=== PATIENT | male | born 1960 | race Caucasian/White ===

== ENCOUNTER 2018-05-25 15:14 | Observation (INO) | payer BC ==
[2018-05-25] MEDS ORDERED: D50W 25 GM/50 ML SYRINGE IV ONE (15:52)
[2018-05-25 16:11] LABS: Absolute Lymphocytes (CBC) 3.5 K/uL (0.7-4.9); Absolute Monocytes 0.7 K/uL (0.1-1.3); Basophils % 1.2 % (0-1.3); Eosinophils % 2.6 % (0-4.4); Hematocrit 51.8 % (39.6-49.0); Lymphocytes % 30.3 % (15.3-44.8); MCH 30.7 pg (27.0-35.0); MCV 89.3 fL (80-100); MPV 8.6 fL (7.6-11.3); Monocytes % 6.3 % (3.3-12.3)
--- NOTE | 2018-05-25 16:12 | RAD REPORT ---
EXAM DESCRIPTION: CT - Ct Stroke Brain Wo Cont - 05/25/2018 3:58 pm CLINICAL HISTORY: Slurred speech, left-sided weakness COMPARISON: None. TECHNIQUE: Computed axial tomography of the head was obtained. IV contrast was not requested. All CT scans are performed using dose optimization technique as appropriate and may include automated exposure control or mA/KV adjustment according to patient size. FINDINGS: An intracranial bleed is not seen . The ventricles are normal in caliber. No extra-axial fluid collection is noted. Fluid within the sinuses/ mastoids is not seen. IMPRESSION: No acute intracranial abnormality is seen. If patient's symptoms persist MRI of the bra in would be recommended. The exam was discussed with Dr. Boudreaux at 4:06 p.m. 05/25/2018
[2018-05-25 16:13] LABS: Protime INR 0.92
[2018-05-25 16:22] LABS: Potassium 3.8 mmol/L (3.5-5.1)
--- NOTE | 2018-05-25 16:25 | RAD REPORT ---
EXAM DESCRIPTION: Michael Single View05/25/2018 4:18 pm CLINICAL HISTORY: Chest pain COMPARISON: 2014 FINDINGS: The lungs appear clear of acute infiltrate. The heart is normal size IMPRESSION: No acute abnormalities displayed
[2018-05-25] MEDS ORDERED: ACETAMINOPHEN 500 MG TAB PO PRN (17:02)
[2018-05-25] MEDS ORDERED: ONDANSETRON 4 MG/2 ML VIAL IV PRN (17:02)
--- NOTE | 2018-05-25 17:12 | EDPHYS ---
Physician Documentation [facility] Name: Pedro Butts Age: 58 yrs Sex: Male : 1960 Arrival Date: 05/25/2018 Time: 15:16 Bed 6 Private MD: None, None ED Physician Evangelista Boudreaux HPI: 05/25 18:09 This 58 yrs old Male presents to ER via Ambulatory with complaints of Left kdr face, arm, leg paresthesia and chest pain. 18:10 The patient presents to the emergency department with weakness of the left upper kdr extremity, left lower extremity, left side of the face, a speech or higher order brain function problem, aphasia, paresthesias of the left lower extremity, that is mild, left upper extremity, that is mild, left side of the face, that is mild. Onset: The symptoms/episode began/occurred The patient and are vague about exact onset. The believes that the s/s stated yesterday with slurred speech. The patient states this s/s became acutely worse about 10:15 today, primarily in his face.. Context: occurred on a street or driveway, occurred while the patient was sitting, Driving a care. Associated signs and symptoms: Pertinent positives: Pertinent negatives: fever, nausea, neck stiffness, syncope, blurred vision, double vision, visual field changes, loss of vision, weakness. Severity of symptoms: At their worst the symptoms were mild moderate just prior to arrival, this morning, in the emergency department the symptoms have improved moderately. Patient's baseline: Neuro: alert and fully oriented, Motor: no deficits, Ambulation: walks without assistance, Speech: normal. Current symptoms: Currently, the patient is not experiencing any symptoms. The patient has not experienced similar symptoms in the past. The patient has not recently seen a physician. Historical: - Allergies: 15:25 Demerol; aj1 - Home Meds: 15:25 Simvastatin Oral [Active]; aj1 - PMHx: 15:25 High Cholesterol; Prostate Cancer; heat stroke; aj1 - PSHx: 15:25 Hernia repair; aj1 - Immunization history:: Adult Immunizations up to date. - Ebola Screening: : No symptoms or risks identified at this time. - Social history:: Smoking status: Patient uses tobacco products, smokes one-half pack cigarettes per day. ROS: 18:10 Constitutional: Negative for fever, chills, and weight loss, Eyes: Negative for injury, kdr pain, redness, and discharge, ENT: Negative for injury, pain, and discharge, Neck: Negative for injury, pain, and swelling, Cardiovascular: Negative for chest pain, palpitations, and edema, Respiratory: Negative for shortness of breath, cough, wheezing, and pleuritic chest pain, Abdomen/GI: Negative for abdominal pain, nausea, vomiting, diarrhea, and constipation, Back: Negative for injury and pain, : Negative for injury, bleeding, discharge, and swelling, MS/Extremity: Negative for injury and deformity, Neuro: Negative for headache, weakness, numbness, tingling, and seizure activity. Psych: Negative for depression, anxiety, suicide ideation, homicidal ideation, and hallucinations, Allergy/Immunology: Negative for hives, rash, and allergies, Endocrine: Negative for neck swelling, polydipsia, polyuria, polyphagia, and marked weight changes, Hematologic/Lymphatic: Negative for swollen nodes, abnormal bleeding, and unusual bruising. 18:10 Skin: Positive for Negative for diaphoresis, discoloration, hematoma, jaundice, lesions, pallor. Exam: 18:10 Constitutional: This is a well developed, well nourished patient who is awake, alert, kdr and in no acute distress. Head/Face: Normocephalic, atraumatic. Eyes: Pupils equal round and reactive to light, extra-ocular motions intact. Lids and lashes normal. Conjunctiva and sclera are non-icteric and not injected. Cornea within normal limits. Periorbital areas with no swelling, redness, or edema. Neck: Trachea midline, no thyromegaly or masses palpated, and no cervical lymphadenopathy. Supple, full range of motion without nuchal rigidity, or vertebral point tenderness. No Meningismus. Chest/axilla: Normal chest wall appearance and motion. Nontender with no deformity. No lesions are appreciated. Cardiovascular: Regular rate and rhythm with a normal S1 and S2. No gallops, murmurs, or rubs. Normal PMI, no JVD. No pulse deficits. Respiratory: Lungs have equal breath sounds bilaterally, clear to auscultation and percussion. No rales, rhonchi or wheezes noted. No increased work of breathing, no retractions or nasal flaring. Abdomen/GI: Soft, non-tender, with normal bowel sounds. No distension or tympany. No guarding or rebound. No evidence of tenderness throughout. Back: No spinal tenderness. No costovertebral tenderness. Full range of motion. Skin: Warm, dry with normal turgor. Normal color with no rashes, no lesions, and no evidence of cellulitis. MS/ Extremity: Pulses equal, no cyanosis. Neurovascular intact. Full, normal range of motion. Neuro: Awake and alert, GCS 15, oriented to person, place, time, and situation. Cranial nerves II-XII grossly intact. Motor strength 5/5 in all extremities. Sensory grossly intact. Cerebellar exam normal. Normal gait. Psych: Awake, alert, with orientation to person, place and time. Behavior, mood, and affect are within normal limits. Vital Signs: 15:25 BP 144 / 99; Pulse 75; Resp 18; Temp 98.1(O); Pulse Ox 97% on R/A; aj1 16:00 BP 127 / 65; Pulse 68; Resp 17; Pulse Ox 98% on R/A; sv 17:38 BP 129 / 79; Pulse 64; Resp 13; Pulse Ox 97% ; sv 19:28 BP 141 / 93; Pulse 58; Resp 16; Temp 98; Pulse Ox 96% on R/A; Pain 0/10; tl1 NIH Stroke Scale Scores: 15:32 NIHSS Score: 4 sv 16:48 NIHSS Score: 4 kdr MDM: 15:51 ED course: D/w Dr. Palmer - since patient is now about five hours out from onset kdr (possibly since yesterday afternoon per ) then he outside the window for tPA. Additionally, the stroke scale is only 4 at this time. Will get CT/CTA and d/w Dr. Palmer to determine if patient can safely be managed here or will need to be transferred . 16:08 ED course: Dr. Marin called with negative head. kdr 17:11 Patient medically screened. kdr 18:10 Data reviewed: vital signs, nurses notes, lab test result(s), EKG, radiologic studies. kdr Admission orders: after a detailed discussion of the patient's condition and case, the admit orders are written by me. 05/25 15:27 Order name: Glucose, Ancillary Testing; Complete Time: 16:56 EDMS 05/25 15:46 Order name: Basic Metabolic Panel; Complete Time: 16:56 kdr 05/25 15:46 Order name: CBC with Diff; Complete Time: 16:56 kdr 05/25 15:46 Order name: Protime (+inr); Complete Time: 16:56 kdr 05/25 15:46 Order name: Ptt, Activated; Complete Time: 16:56 kdr 05/25 15:46 Order name: Urine Microscopic Only kdr 05/25 16:12 Order name: Glucose, Ancillary Testing; Complete Time: 16:56 EDMS 05/25 17:06 Order name: CBC with Automated Diff EDMS 05/25 17:06 Order name: CBC with Automated Diff EDMS 05/25 17:06 Order name: CBC with Automated Diff EDMS 05/25 17:06 Order name: CBC with Automated Diff EDMS 05/25 17:06 Order name: Comprehensive Metabolic Panel EDMS 05/25 17:06 Order name: Comprehensive Metabolic Panel EDMS 05/25 17:06 Order name: Comprehensive Metabolic Panel EDMS 05/25 15:46 Order name: CT Stroke Brain w/o Contrast; Complete Time: 16:56 kdr 05/25 15:46 Order name: Stroke CXR 1 View; Complete Time: 16:56 kdr 05/25 15:46 Order name: EKG; Complete Time: 15:46 kdr 05/25 16:15 Order name: Head angio EDMS 05/25 17:06 Order name: Physical Therapy Consult EDMS 05/25 17:06 Order name: Speech Therapy Consult EDMS 05/25 17:06 Order name: Echo with Doppler EDMS 05/25 17:06 Order name: Comprehensive Metabolic Panel EDMS 05/25 17:06 Order name: Lipid Profile EDMS 05/25 17:06 Order name: Lipid Profile EDMS 05/25 17:07 Order name: Carotid Artery Bilateral EDMS 05/25 17:12 Order name: MRA Head Wo Cont EDMS 05/25 17:12 Order name: Brain With Cont EDMS 05/25 18:43 Order name: MRI EDMS 05/25 15:46 Order name: Accucheck; Complete Time: 16:20 kdr 05/25 15:46 Order name: Cardiac monitoring; Complete Time: 16:19 kdr 05/25 15:46 Order name: EKG - Nurse/Tech; Complete Time: 16:15 kdr 05/25 15:46 Order name: IV Saline Lock; Complete Time: 16:15 kdr 05/25 15:46 Order name: Labs collected and sent; Complete Time: 16:15 kdr 05/25 15:46 Order name: NPO; Complete Time: 16:19 kdr 05/25 15:46 Order name: O2 Per Protocol; Complete Time: 16:20 kdr 05/25 15:46 Order name: O2 Sat Monitoring; Complete Time: 16:20 kdr 05/25 17:06 Order name: NPO EDMS 05/25 17:06 Order name: NPO EDMS 05/25 17:06 Order name: NPO EDMS Administered Medications: 15:54 Drug: D50W 25 ml Route: IVP; Site: left antecubital; sv 16:15 Follow up: Response: No adverse reaction sv Point of Care Testing: Blood Glucose: 15:25 Blood Glucose: 48 mg/dL; iw 16:10 Blood Glucose: 120 mg/dL; sv 19:36 Blood Glucose: 72 mg/dL; tl1 Ranges: Critical Glucose Levels:Adult <50 mg/dl or >400 mg/dl <40 mg/dl or >180 mg/dl Disposition: 05/25/18 17:11 Hospitalization ordered by Chandra Rodriguez for Inpatient Admission. Preliminary diagnosis is Left facial paresthisia, left upper lower limb paresthesia, chest pain. - Bed requested for Telemetry/MedSurg (Inpatient). - Status is Inpatient Admission. tl1 - Condition is Fair. - Problem is new. - Symptoms have improved. UTI on Admission? No NIH Stroke Scale - NIH Stroke Score Date: 05/25/2018 Time: 15:32 Total Score = 4 1a. Level of Consciousness (LOC) - 0(Alert) 1b. Level of Consciousness (LOC) (Year \T\ Age) - 0(Both) 1c. LOC Commands (Open \T\ Closes Eyes/Supervisor Dry Cell Assembly) - 0(Both) 2. Best Gaze (Lateral Gaze Paresis) - 0(Normal) 3. Visual Field Loss - 0(No visual loss) 4. Facial Palsy - 1(Minor Paralysis) 5a. Left Arm: Motor (10-second hold) - 0(No drift) 5b. Right Arm: Motor (10-second hold) - 0(No drift) 6a. Left Leg: Motor (5-second hold - always test supine) - 0(No drift) 6b. Right Leg: Motor (5-second hold - always test supine) - 0(No drift) 7. Limb Ataxia (finger/nose \T\ heel/cole - test with eyes open) - 1(Present in one limb) 8. Sensory Loss (pinprick arms/legs/face) - 1(Mild to moderate loss) 9. Best Language: Aphasia (description/naming/reading) - 1(Mild to moderate aphasia) 10. Dysarthria (speech clarity - read or repeat words) - 0(Normal) 11. Extinction and Inattention (visual/tactile/auditory/spatial/personal) - 0(No abnormality) Initials: NIH Stroke Scale - NIH Stroke Score Date: 05/25/2018 Time: 16:48 Total Score = 4 1a. Level of Consciousness (LOC) - 0(Alert) 1b. Level of Consciousness (LOC) (Year \T\ Age) - 0(Both) 1c. LOC Commands (Open \T\ Closes Eyes/Supervisor Dry Cell Assembly) - 0(Both) 2. Best Gaze (Lateral Gaze Paresis) - 0(Normal) 3. Visual Field Loss - 0(No visual loss) 4. Facial Palsy - 1(Minor Paralysis) 5a. Left Arm: Motor (10-second hold) - 0(No drift) 5b. Right Arm: Motor (10-second hold) - 0(No drift) 6a. Left Leg: Motor (5-second hold - always test supine) - 0(No drift) 6b. Right Leg: Motor (5-second hold - always test supine) - 0(No drift) 7. Limb Ataxia (finger/nose \T\ heel/cole - test with eyes open) - 1(Present in one limb) 8. Sensory Loss (pinprick arms/legs/face) - 1(Mild to moderate loss) 9. Best Language: Aphasia (description/naming/reading) - 1(Mild to moderate aphasia) 10. Dysarthria (speech clarity - read or repeat words) - 0(Normal) 11. Extinction and Inattention (visual/tactile/auditory/spatial/personal) - 0(No abnormality) Initials: kdr Signatures: Dispatcher [employer] EDLia Huang RN RN aj1 Christine Hall RN RN sv Evangelista Boudreaux MD MD kdr Lasagna, Tonya, RN RN tl1 Julia Staples, RN RN df Corrections: (The following items were deleted from the chart) 15:49 15:46 Head Brain Wo Cont+CT.RAD.BRZ ordered. EDMS EDMS 17:50 17:11 Hospitalization Ordered by Chandra Rodriguez MD for Inpatient Admission. df Preliminary diagnosis is Left facial paresthisia, left upper lower limb paresthesia, chest pain. Bed requested for Telemetry/MedSurg (Inpatient). Status is Inpatient Admission. Condition is Fair. Problem is new. Symptoms have improved. UTI on Admission? No. kdr 20:03 17:50 05/25/2018 17:11 Hospitalization Ordered by Chandra Rodriguez MD for Inpatient tl1 Admission. Preliminary diagnosis is Left facial paresthisia, left upper lower limb paresthesia, chest pain. Bed requested for Telemetry/MedSurg (Inpatient). Status is Inpatient Admission. Condition is Fair. Problem is new. Symptoms have improved. UTI on Admission? No. df
--- NOTE | 2018-05-25 17:12 | ER ---
Nurse's Notes [facility] Name: Pedro Butts Age: 58 yrs Sex: Male : 1960 Arrival Date: 05/25/2018 Time: 15:16 Bed 6 Private MD: None, None Diagnosis: Left facial paresthisia, left upper lower limb paresthesia, chest pain Presentation: 05/25 15:17 Presenting complaint: Patient states: Slurred speech and left sided weakness since aj1 10:00 this morning. Patient states he was driving when suddenly he felt like the coffee he was drinking was dribbling out of the left side of his mouth. Patient's states that his speech sounds more slurred than usual to her. 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 15:24 Transition of care: patient was not received from another setting of care. Onset of aj1 symptoms was May 25, 2018 at 10:00. Risk Assessment: Do you want to hurt yourself or someone else? Patient reports no desire to harm self or others. Initial Sepsis Screen: Does the patient meet any 2 criteria? No. Patient's initial sepsis screen is negative. Does the patient have a suspected source of infection? No. Patient's initial sepsis screen is negative. Care prior to arrival: None. 15:24 Method Of Arrival: Ambulatory aj1 15:24 Acuity: DAMIEN 2 aj1 Triage Assessment: 15:25 General: Appears in no apparent distress. uncomfortable, Behavior is calm, cooperative, aj1 appropriate for age. Neuro: Level of Consciousness is awake, alert, obeys commands, Community Development Manager are weak on left Speech is normal, Notified Turner Wallace RN of patient symptoms. Patient taken to ER 6. Cardiovascular: Patient's skin is warm and dry. Historical: - Allergies: 15:25 Demerol; aj1 - Home Meds: 15:25 Simvastatin Oral [Active]; aj1 - PMHx: 15:25 High Cholesterol; Prostate Cancer; heat stroke; aj1 - PSHx: 15:25 Hernia repair; aj1 - Immunization history:: Adult Immunizations up to date. - Ebola Screening: : No symptoms or risks identified at this time. - Social history:: Smoking status: Patient uses tobacco products, smokes one-half pack cigarettes per day. Screenin:33 Abuse screen: Denies threats or abuse. Denies injuries from another. Nutritional sv screening: No deficits noted. Tuberculosis screening: No symptoms or risk factors identified. Fall Risk None identified. 20:00 Patient has been NPO before screening. The patient is alert, able to follow commands. tl1 The patient does not exhibit slurred or garbled speech The patient is not exhibiting difficulty speaking. The patient does not exhibit difficulty understanding words. The patient is able to swallow own secretions with no drooling or need for suction. Patient tolerated one teaspoon of water. No drooling, immediate coughing, gurgling, or clearing of the throat was noted. The patient tolerated 90mL of water. No drooling, immediate coughing, gurgling, or clearing of the throat was noted. The patient passed the bedside swallow screening. Oral medications may be given as ordered. Contact Physician for further diet orders. Assessment: 15:28 Reassessment: Dr. Boudreaux at beside to assess pt. Orders to hold "Code Stroke" at this iw time. 15:33 Reassessment: EKG at bedside. sv 15:33 General: Appears in no apparent distress. comfortable, well developed, Behavior is sv calm, cooperative, appropriate for age. Pain: Denies pain. Neuro: Level of Consciousness is awake, alert, obeys commands, Oriented to person, place, time, situation, Moves all extremities. Full function Speech is slurred, per spouse. Reports headache in left since that started yesterday and went away and then came back this morning and went away. numbness in left eye, left voodoo, left side of the nose, left zygomatic area, left cheek and left mandible since 1000 today reports right side of face has droop.. Respiratory: Respiratory effort is even, unlabored, Respiratory pattern is regular, symmetrical. Derm: Skin is pink, warm \\T\\ dry. Musculoskeletal: Range of motion: intact in all extremities. 15:39 Reassessment: Dr. Boudreaux speaking to Dr. Palmer via telephone. iw 16:19 Reassessment: Patient appears in no apparent distress at this time. No changes from sv previously documented assessment. Patient and/or family updated on plan of care and expected duration. Pain level reassessed. Patient is alert, oriented x 3, equal unlabored respirations, skin warm/dry/pink. 17:10 Reassessment: Patient appears in no apparent distress at this time. No changes from sv previously documented assessment. Patient and/or family updated on plan of care and expected duration. Pain level reassessed. Patient is alert, oriented x 3, equal unlabored respirations, skin warm/dry/pink. 18:14 Reassessment: Pt currently in MRI. sv 19:41 Pain: Denies pain. Pain does not radiate. Pain began. tl1 20:01 Reassessment: Patient and/or family updated on plan of care and expected duration. Pain tl1 level reassessed. Patient is alert, oriented x 3, equal unlabored respirations, skin warm/dry/pink. Vital Signs: 15:25 BP 144 / 99; Pulse 75; Resp 18; Temp 98.1(O); Pulse Ox 97% on R/A; aj1 16:00 BP 127 / 65; Pulse 68; Resp 17; Pulse Ox 98% on R/A; sv 17:38 BP 129 / 79; Pulse 64; Resp 13; Pulse Ox 97% ; sv 19:28 BP 141 / 93; Pulse 58; Resp 16; Temp 98; Pulse Ox 96% on R/A; Pain 0/10; tl1 NIH Stroke Scale Scores: 15:32 NIHSS Score: 4 sv 16:48 NIHSS Score: 4 kdr ED Course: 15:16 Patient arrived in ED. mr 15:17 None, None is Private Physician. mr 15:24 Irish Wallace, RN is Primary Nurse. iw 15:25 Triage completed. aj1 15:25 Arm band placed on Patient placed in an exam room. aj1 15:30 Patient maintains SpO2 saturation greater than 95% on room air. sv 15:33 Patient has correct armband on for positive identification. Placed in gown. Bed in low sv position. Side rails up X2. Adult w/ patient. desk monitor on. Pulse ox on. NIBP on. Door closed. Head of bed elevated. 15:34 Evangelista Boudreaux MD is Attending Physician. kdr 15:35 Initial lab(s) drawn, by nv, sent to lab. Inserted saline lock: 20 gauge in left sv antecubital area, using aseptic technique. Blood collected. Flushed left antecubital with 5 ml normal saline. 15:40 EKG done, by mammography technologist. reviewed by Evangelista Boudreaux MD. sm3 15:[address] mw3 15:[address] via stretcher. sv 15:58 CT completed. Patient tolerated procedure well. Patient moved back from CT. mw3 15:58 CT Stroke Brain w/o Contrast In Process Unspecified. EDMS 16:00 Patient moved back from CT. sv 16:06 Stroke CXR 1 View In Process Unspecified. EDMS 16:19 Radiology exam delayed due to lab results not completed at this time. (BUN/Creatinine). vr 16:[address] via stretcher. vr 16:44 Head angio In Process Unspecified. EDMS 17:05 Chandra Rodriguez MD is Hospitalizing Provider. kdr 17:55 Patient moved to MRI via wheelchair. em2 19:07 Report given to Rosa THOMAS and Emily THOMAS. sv 19:36 No provider procedures requiring assistance completed. Patient admitted, IV remains in tl1 place. 20:02 Diet: Patient given snack. given crackers with peanut butter and drink for glucose tl1 reading of 72. Administered Medications: 15:54 Drug: D50W 25 ml Route: IVP; Site: left antecubital; sv 16:15 Follow up: Response: No adverse reaction sv Point of Care Testing: Blood Glucose: 15:25 Blood Glucose: 48 mg/dL; iw 16:10 Blood Glucose: 120 mg/dL; sv 19:36 Blood Glucose: 72 mg/dL; tl1 Ranges: Outcome: 17:11 Decision to Hospitalize by Provider. kdr 19:37 Admitted to Tele accompanied by tech, via wheelchair, with chart, Report called to tl1 Porsha THOMAS 19:37 Condition: stable 20:02 Admitted to tl1 20:02 Instructed on the need for admit. 20:03 Patient left the ED. tl1 NIH Stroke Scale - NIH Stroke Score Date: 05/25/2018 Time: 15:32 Total Score = 4 1a. Level of Consciousness (LOC) - 0(Alert) 1b. Level of Consciousness (LOC) (Year \\T\\ Age) - 0(Both) 1c. LOC Commands (Open \\T\\ Closes Eyes/Automatic Winder Operator) - 0(Both) 2. Best Gaze (Lateral Gaze Paresis) - 0(Normal) 3. Visual Field Loss - 0(No visual loss) 4. Facial Palsy - 1(Minor Paralysis) 5a. Left Arm: Motor (10-second hold) - 0(No drift) 5b. Right Arm: Motor (10-second hold) - 0(No drift) 6a. Left Leg: Motor (5-second hold - always test supine) - 0(No drift) 6b. Right Leg: Motor (5-second hold - always test supine) - 0(No drift) 7. Limb Ataxia (finger/nose \\T\\ heel/cole - test with eyes open) - 1(Present in one limb) 8. Sensory Loss (pinprick arms/legs/face) - 1(Mild to moderate loss) 9. Best Language: Aphasia (description/naming/reading) - 1(Mild to moderate aphasia) 10. Dysarthria (speech clarity - read or repeat words) - 0(Normal) 11. Extinction and Inattention (visual/tactile/auditory/spatial/personal) - 0(No abnormality) Initials: sv NIH Stroke Scale - NIH Stroke Score Date: 05/25/2018 Time: 16:48 Total Score = 4 1a. Level of Consciousness (LOC) - 0(Alert) 1b. Level of Consciousness (LOC) (Year \\T\\ Age) - 0(Both) 1c. LOC Commands (Open \\T\\ Closes Eyes/Automatic Winder Operator) - 0(Both) 2. Best Gaze (Lateral Gaze Paresis) - 0(Normal) 3. Visual Field Loss - 0(No visual loss) 4. Facial Palsy - 1(Minor Paralysis) 5a. Left Arm: Motor (10-second hold) - 0(No drift) 5b. Right Arm: Motor (10-second hold) - 0(No drift) 6a. Left Leg: Motor (5-second hold - always test supine) - 0(No drift) 6b. Right Leg: Motor (5-second hold - always test supine) - 0(No drift) 7. Limb Ataxia (finger/nose \\T\\ heel/cole - test with eyes open) - 1(Present in one limb) 8. Sensory Loss (pinprick arms/legs/face) - 1(Mild to moderate loss) 9. Best Language: Aphasia (description/naming/reading) - 1(Mild to moderate aphasia) 10. Dysarthria (speech clarity - read or repeat words) - 0(Normal) 11. Extinction and Inattention (visual/tactile/auditory/spatial/personal) - 0(No abnormality) Initials: kdr Signatures: Dispatcher [employer] EDLia Huang RN RN aj1 Christine Hall, RN RN sv Evangelista Boudreaux MD MD kdr Rivera, Maria mr Irish Wallace, WILLIAM RN iw Chapo, James Ortiz 2 Emily Stone RN RN tl1 Vanessa Wilkes 3 Brenda Gonsales mw3 Corrections: (The following items were deleted from the chart) 15:25 15:17 Presenting complaint: Patient states: Slurred speech and left sided aj1 weakness since 10:00 this morning aj1 15:40 15:28 Reassessment: Dr. Boudreaux at [facility] to assess pt iw iw 16:29 15:33 Neuro: Level of Consciousness is awake, alert, obeys commands, Oriented sv to person, place, time, situation, Moves all extremities. Full function Speech is slurred, per spouse. Reports headache in left since that started yesterday and went away and then came back this morning and went away. numbness in left eye, left voodoo, left side of the nose, left zygomatic area, left cheek and left mandible since 1000 today sv 20:03 19:37 Admitted to Tele accompanied by tech, via wheelchair, with chart, tl1 tl1
--- NOTE | 2018-05-25 17:17 | RAD REPORT ---
EXAM DESCRIPTION: CTHead angio05/25/2018 4:44 pm CLINICAL HISTORY: Slurred speech/left-sided weakness COMPARISON: May 25, [address] TECHNIQUE: CT angiogram of the head was obtained. 50 cc Isovue 370 was intravenously. Coronal and sa gittal reconstruction was performed. All CT scans are performed using dose optimization technique as appropriate and may include automated exposure control or mA/KV adjustment according to patient size. FINDINGS: The internal carotid, anterior cerebral, middle cerebral and posterior cerebral arteries a re normal caliber. An aneurysm is not seen. origin of the posterior cerebral arteries is noted. The distal aspect of the basilar artery is small. A filling defect is not seen. IMPRESSION: The distal aspect of the basilar artery is small. This probably is either a normal varia nt or or chronic finding. If the patient has clinical symptoms to suggest acute basilar pathology the n an MRI and MRA of the brain would be recommended for further evaluation.
[2018-05-25 18:01] VITALS: O2SAT 96
--- NOTE | 2018-05-25 18:43 | RAD REPORT ---
EXAM DESCRIPTION: MRI - Brain W/Wo Cont - 05/25/2018 6:29 pm CLINICAL HISTORY: facial droop CVA COMPARISON: MRA Head Wo Cont dated 05/25/2018; Head angio dated 05/25/2018; Ct Stroke Brain Wo Cont da jose 05/25/2018 TECHNIQUE: Multi-sequence, multiplanar MR imaging of the brain was performed with contrast. FINDINGS: No intracranial hemorrhage, hydrocephalus, extra-axial fluid collection or acute infarctio n. No edema or shift of midline structures. No intracranial mass. DWI is negative for acute CVA. The midline structures are normally formed. Mild polypoid mucosal thickening affects the inferior max illary antra. The paranasal sinuses and mastoids are otherwise clear. Post-contrast images show no abnormal enhancement to suggest tumor or infection. IMPRESSION: No acute or concerning intracranial abnormalities. No pathologic post-contrast enhancement suspected.
--- NOTE | 2018-05-25 18:45 | RAD REPORT ---
EXAM DESCRIPTION: MRI - MRA Head Wo Cont - 05/25/2018 6:29 pm CLINICAL HISTORY: facial droop CVA COMPARISON: Head angio dated 05/25/2018; Ct Stroke Brain Wo Cont dated 05/25/2018 FINDINGS: 3D [id number] MR angiography of the [place] was performed. No flow-limiting stenosis, vascular malformation or aneurysm is detected. origin of bilateral p osterior communicating arteries is noted, normal variant. This normal variant anatomy likely results in the diminutive size of the vertebrobasilar system. Forward flow in both vertebral arteries are not ed. IMPRESSION: No significant flow abnormality of the [place] is identified.
--- NOTE | 2018-05-25 19:04 | HP ---
Date of Admission: 05/25/2018 Primary Care Physician: None. Consultants: Herbie Palmer M.D., neurology. Chief Complaint: Numbness and tingling in the left side. History Of Present Illness: The patient is a 58-year-old male with past medical history of hyperlipi demia, prostate cancer, who was not seen a primary care physician for over a year, comes in with numb ness and tingling to left side of his face, which initially started day prior to admission with some transient blurry vision and visual disturbances in the left eye. The patient noticed that this is mo rning at 10:15 a.m. when he was trying to work, had some tingling and numbness in his left side as we ll as weakness on the left upper extremity. The patient's symptoms are constant, moderate, progressi vely worsening. No alleviating or aggravating factor. The patient therefore came into the ER for fu rther evaluation. Of note, the patient is a long-term smoker and continues to smoke half a pack a da y. Upon arrival, his vital signs were stable. His blood sugar level of 48. Head CT scan initially was negative. CT angio had showed distal aspect of the basilar artery is small, probably either a no rmal variant or chronic finding and recommended MRI. The patient was then referred for admission. W hen seen in the ER, he was awake, alert, oriented x3, in some mild distress. Past Medical History: Hyperlipidemia, prostate cancer. Past Surgical History: TURP, bunionectomy of the left great toe, right arm surgery for a staph infec tion, and bone spur. Allergies: TO DEMEROL, WHICH CAUSES FLUSHING. Medications: None. Social History: The patient is , has a daughter. Smokes half pack per day and has been smoki ng for over 20 years. Denies any alcohol use or illicit drug use. The patient is independent in his activities of daily living. Currently employed and works in [employer]. Family History: Mother had diabetes. Father had stroke, heart attack. Review of Systems: An 11-point system reviewed, negative except as per HPI. Physical Examination: Vital Signs: Blood pressure 144/99, respirations 18, pulse 75, temperature 98.1, O2 97% on room air. General: Awake, alert, oriented x3, not in any acute distress. HEENT: Normocephalic, atraumatic. PERRLA. EOMI. Moist mucous membranes. Oropharynx is clear. Co njunctivae anicteric. Neck: Supple. No JVD. Trachea midline. CV: S1, S2. No murmurs. Regular rate and rhythm. Peripheral pulses are present. Respiratory: Clear to auscultation bilaterally. No wheezing. No stridor. No use of accessory musc les Gastrointestinal: Abdomen is soft, nontender, nondistended. Positive bowel sounds. No guarding or rigidity. Extremities: No clubbing, cyanosis, or edema. No calf tenderness. Neuro: Cranial nerves 2 through 12 intact grossly. The patient does have 4+ out of 5 strength in th e left upper and lower extremity. Right side is 5/5. The patient does have slight slurring of the s peech with very minimal facial droop. Sensation is decreased to light touch on the left side. Skin: No rashes. Normal skin turgor. Psych: Mood is okay. Affect is full. Insight and judgment are good. Laboratory Data: Sodium 142, potassium 3.8, chloride 108, CO2 29, BUN 17, creatinine 1.10, glucose 8 5 initially, Accu-Chek was 48. Repeat is 120. Calcium 8.5. INR 0.92. WBC 11.7, H and H 17.8, 51.8 , and platelets 252. UA is pending. Chest x-ray shows no acute abnormalities. CT angio of the head shows distal aspect of the basal artery is small, probably either a normal variant or chronic findin g. CT scan of the head does not show any acute intracranial abnormality. Assessment: A 58-year-old male with; 1.Transient ischemic attack, possible cerebrovascular accident. We will start on aspirin, statin, a nd could complete stroke workup including MRI of the brain, carotid artery ultrasound and echocardiog eliza. Dr. Palmer with neurology has been consulted. He is aware of the patient. We will obtain sp eech therapy and occupational therapy evaluation. 2.Hyperlipidemia. We will check lipid panel. Continue statin. 3.Noncompliant. 4.Hypoglycemia. We will place on IV fluids and monitor blood glucose level. 5.Gastrointestinal and deep venous thrombosis prophylaxis with PPI and Lovenox. Plan: Admit the patient to Med-Surg. SA/MODL Voice ID: [id number]
--- NOTE | 2018-05-25 19:21 | RAD REPORT ---
EXAM DESCRIPTION: LUCI - CP - 05/25/2018 6:48 pm CLINICAL HISTORY: CVA COMPARISON: None TECHNIQUE: Real-time sonographic evaluation of both carotid systems was performed. Doppler interroga tion was performed with waveform tracing bilaterally. FINDINGS: Normal high resistance waveforms are noted in both external carotid arteries. The common c arotid arteries and internal carotid arteries show normal low resistance waveforms. Mild soft plaque is seen in both carotid bulbs. Peak systolic and end diastolic velocity values and t he ICA/CCA ratios are in the non-hemodynamically significant range. Antegrade flow seen in both vertebral arteries. IMPRESSION: Mild soft plaque is seen in both carotid bulbs. No evidence of a hemodynamically significant stenosis.
[2018-05-25] MEDS: ENOXAPARIN 40 MG/0.4 ML SQ SCH (20:41)
[2018-05-25] MEDS: NA CHLORIDE 0.9% 1,000 ML IV SCH (20:42)
[2018-05-25] MEDS: ASPIRIN EC 81 MG TAB PO SCH (20:59)
[2018-05-25] MEDS ORDERED: ATORVASTATIN 40 MG TAB PO SCH (21:00)
[2018-05-25 21:11] VITALS: BMI 29.9
[2018-05-26] MEDS: NA CHLORIDE 0.9% 1,000 ML IV SCH (03:52)
[2018-05-26 05:43] LABS: Absolute Lymphocytes (CBC) 3.6 K/uL (0.7-4.9); Absolute Monocytes 0.8 K/uL (0.1-1.3); Absolute Neutrophil 4.6 K/uL (1.8-8.0); Basophils % 0.7 % (0-1.3); Eosinophils % 4.3 % (0-4.4); Lymphocytes % 38.2 % (15.3-44.8); MCH 31.1 pg (27.0-35.0); MCV 89.8 fL (80-100); MPV 8.8 fL (7.6-11.3); RBC Red Blood Cell Count 5.34 M/uL (4.33-5.43)
[2018-05-26 05:57] LABS: ALT/SGPT 28 U/L (12-78); AST/SGOT 20 U/L (15-37); Albumin 3.5 g/dL (3.4-5.0); Alkaline Phosphatase 92 U/L (45-117); BUN Blood Urea Nitrogen 20 mg/dL (7-18); Bicarbonate 28 mmol/L (21-32); Bilirubin Total 0.3 mg/dL (0.2-1.0); Glucose Level 95 mg/dL (74-106); HDL Cholesterol 25 mg/dL (40-60); LDL Cholesterol, Calculated ND (<130); Potassium 4.1 mmol/L (3.5-5.1); Protein, Total 6.5 g/dL (6.4-8.2); Sodium Level 142 mmol/L (136-145)
[2018-05-26 06:17] LABS: LDL, Direct 144 mg/dL (100-129)
[2018-05-26] MEDS ORDERED: ASPIRIN EC 81 MG TAB PO SCH (09:00)
[2018-05-26] MEDS: ASPIRIN EC 81 MG TAB PO SCH (10:18)
[2018-05-26] MEDS: ENOXAPARIN 40 MG/0.4 ML SQ SCH (10:18)
[2018-05-26 12:16] VITALS: BP 150/86; TEMP 98.3
--- NOTE | 2018-05-26 13:56 | PN ---
Date of Progress Note: 05/26/2018 Subjective: The patient is seen and examined. Chart reviewed and case discussed with RN. The patie nt states he feels better. His weakness is about the same. No difficulty swallowing liquids. Facia l asymmetry is improved. Review of Systems: Negative except as above. Medications: List reviewed. Physical Examination: Vital Signs: Temperature 97.7, heart rate 53, blood pressure 140/84, respirations 18, O2 96% on room air. General: Awake, alert, oriented x3, not in acute distress. Elderly male, obese, BMI 30. CV: S1, S2. No murmurs. Regular rate and rhythm. Peripheral pulses present. Respiratory: Clear to auscultation bilaterally. No wheezing. Gastrointestinal: Abdomen is soft, nontender, nondistended. Positive bowel sounds. Extremities: No clubbing, cyanosis, or edema. Neuro: The patient has subtle weakness 4+/5 on the left upper and lower extremity. No facial asymme try. Speech is improved. Skin: No rashes. Normal skin turgor. Laboratory Data: Sodium 142, potassium 4.1, chloride 108, CO2 28, BUN 20, creatinine 1, glucose 95, calcium 8. Triglycerides 470, cholesterol 213, LDL 144, HDL 25. WBC 9.5, H and H 16.6 and 48, plate lets 227. MRI of the brain and MRA shows no significant flow abnormalities, no acute or concerning i ntracranial abnormalities. No pathologic postcontrast enhancement suspected. Assessment And Plan: A 58-year-old male with: 1.Transient ischemic attack, rule out cerebrovascular accident. Continue aspirin, statin. MRI is n egative. Symptoms have improved. We will obtain PT and speech eval. Dr. Palmer has been consulte d. Carotid artery ultrasound shows mild soft plaque seen in both carotid bulbs. No evidence of hemo dynamically significant stenosis. 2.Dyslipidemia, uncontrolled. Continue with high-dose statin. 3.Noncompliance. The patient counseled. 4.Hypoglycemia, improved. 5.Gastrointestinal and deep venous thrombosis prophylaxis with PPI and Lovenox. Plan: Continue workup. Echocardiogram is pending. We will follow up with Dr. Palmer's recommenda tion. SA/MODL Voice ID: [id number] Report ID: [id number]
--- NOTE | 2018-05-26 16:26 | DS ---
Date of Discharge: 05/26/2018 Consultants: Dr. Palmer with Neurology. Admitting Diagnoses: 1. Transient ischemic attack, rule out cerebrovascular accident. 2. Hyperlipidemia. 3. Noncompliance. 4. Hypoglycemia. Discharge Diagnoses: 1. Transient ischemic attack, cerebrovascular accident ruled out. 2. Dyslipidemia. 3. Hypoglycemia, improved. 4. Nicotine dependence, cigarette smoking, uncomplicated. Hospital Course: The patient is a 58-year-old male, who had not seen primary care physician for over a year, out of his statin medication, comes in with numbness and tingling on the left side. He was told to have a possible stroke. He was admitted for stroke workup. He was started on aspirin and high-dose statin. His workup including the MRI of the brain, and MRI and MRA was negative for any acute changes, did not show any acute CVA. His head CT angio did show distal aspect of the basilar artery to be small, either normal variant or chronic finding. Initial head CT was negative. Chest x-ray did not show any acute changes. Carotid artery ultrasound did not show any hemodynamically significant stenosis. The patient was seen by Dr. Palmer with Neurology. His symptoms improved and had no difficulty ambulating. The patient was then able to tolerate his diet without any difficulties. The patient was then cleared from Neurology standpoint. He was counseled extensively on being compliant with his medications and to quit smoking. The patient was then discharged home in a stable condition. Activity: As tolerated. Medications: As per medication reconciliation list. Followup: Follow up with primary care physician in 2-3 days. List of primary care providers was given to the patient. Follow up with neurologist, Dr. Palmer in 2 weeks. Return to ER for worsening condition. Diet: Heart healthy. For physical exam findings please see progress note from day of discharge. /KARTHIKEYAN Voice ID: [id number] Report ID: [id number] PATRICK
--- NOTE | 2018-05-26 18:32 | CON ---
Reason For Consultation: Consultation called because of possible transient ischemic attack. History Of Present Illness: Mr. Butts is a 58-year-old right-handed patient with hyperte nsion and dyslipidemia, prostate cancer, who comes in after sudden onset left face arm and leg numbne ss. Symptoms occurred yesterday around 10 and the patient was actually seen in the emergency room ab out 5 hours later. Symptoms were fluctuating at the time, but were somewhat improving. NIH Stroke S priscilla in the emergency room was 4. His head CT scan was unremarkable for acute ischemic or hemorrhagi c change. A CT angiogram of his head showed the distal aspect of the basal artery to be small, which is likely a normal variant or chronic finding. Subsequent brain MRI shows no evidence of an acute i schemic or hemorrhagic stroke including in the thalamic region. His magnetic resonance angiogram agata wed no evidence of flow abnormalities in the [place]. There is origin of the bilatera l posterior communicating artery, which is likely a normal variant. Forward flow is noted in both ve rtebral arteries. His blood work revealed essentially normal complete blood count with differential, normal coagulation panel, and his laboratory studies showed on admission low glucose of around 48. His chloride was slightly elevated at 108, triglycerides were elevated at 470, total cholesterol elev ated 213, LDL cholesterol elevated at 144, HDL cholesterol was very low at 25 and cholesterol to HDL ratio was elevated at 8.52. Liver function studies were normal. Hemoglobin A1c was normal at 5.6. Calcium was normal. Urinalysis unremarkable. Mr. Butts denied taking aspirin on a regular basis and was not very compliant with medications. He admitted to drinking around 4 cans of Coke and 1 large cup of coffee daily with little water intake, perhaps 1-2 bottles. Past Medical History: As indicated above in addition to prostate cancer. Surgical History: He has had bunionectomy left toe, right arm surgery for staph infection and bone s purs and a TURP procedure. Allergies: DEMEROL CAUSES FLUSHING. Medications At Home: The patient denies being on any specific medications at home Social History: He is . He smokes about half a pack a day for about 25-30 years. Has recent use of alcohol or illegal drug use and he works as a [employer] contractor. Family History: Positive for hypertension and diabetes in mother, stroke and heart attack in father. Review of Systems: He denies any recent fevers, chills, nausea, vomiting, myalgias, arthralgias, headaches, weight henao e, rash, psychiatric complaints, any gastrointestinal or genitourinary complaints. Physical Examination: Vital Signs: Blood pressure 150/86, pulse 71, respiratory rate 16, temperature 98.3, oxygen saturati on 95%. Weight 191 pounds, height 5 feet 7 inches, BMI 30. General: Mr. Butts is resting comfortably, sitting at the side of his bed. HEENT: He is normocephalic, atraumatic. Sclerae anicteric. Oropharynx is pink and moist. Neck: Supple. Chest: Clear. Heart: Regular. Extremities: show no edema, cyanosis, or clubbing Neurologic: He is alert and oriented to person, p lace, time, and situation. Cranial nerves show mild decrease to light touch, temperature, pinprick o n the left V1, V2, V3 distribution. Otherwise, his cranial nerves are intact to examination. Motor examination in the lower extremities is 5/5 proximally and distally. Normal tone and bulk. Sensory examination, he has mild decreased light touch, temperature in the left arm and leg compared to the r ight side. Coordination, he has a mild intention tremor noted in both extremities. Mild head tituba tion noted as well. Reflexes are 1-2+ upper and lower extremities and are symmetric. Gait, he has g ood stance, stride, coordination, and balance. Assessment: Mr. Butts is a 58-year-old patient with likely a transient ischemic attack potentially involving his thalamus on the right, however, he still has a mild persistent deficit. It is with mo re than 24 hours beyond his initial symptom onset. He did not receive tPA and is now just taking an aspirin. He is now on high dose statin 40 mg at bedtime given his dyslipidemia and also has deep grace ous thrombosis prophylaxis with Lovenox. Plan: 1.The patient was instructed on the importance of making changes to reduce risk of stroke including his diet change, increasing exercise, hydration, cutting back on the use of caffeinated beverages. 2.The patient does have a tremor that is consistent with benign essential tremor that will be observ ed and treated at this time. He will be followed in the clinic for that in a month. 3.He should continue with high-dose statin, Lipitor 40 mg at bedtime. 4.Continue aspirin, currently ordered 162 mg daily. 5.It should be noted that his NIH Stroke Scale is still 4 for his sensory deficits of the face, arm, and leg on the left side along with some neglect on the left. 6.He will be followed again in clinic in 1 month. May consider additional imaging. The patient did say he fell during [place] and potentially might have injured the lower back and neck and i t has not been fully evaluated and that will be evaluated in clinic. 7.The patient may be discharged home at this time. UVALDO Voice ID: [id number] Report ID: [id number]
--- NOTE | 2018-05-27 10:33 | EKG ---
Test Date: 2018-05-25 Test Time: 15:34:35 Tear Down Man: JOSE MEASUREMENT RESULTS: Intervals: Rate: 67 VA: 148 QRSD: 92 QT: 388 QTc: 409 Higginson: P: 43 VA: 148 QRS: 47 T: 37 INTERPRETIVE STATEMENTS: Normal sinus rhythm Low voltage QRS Borderline ECG Compared to ECG 10/25/2014 15:56:34 Low QRS voltage now present Electronically Signed On 05-27-18 10:27:49 CDT by Lb Medellin
--- NOTE | 2018-05-29 08:26 | ECHO ---
HEIGHT: 5 ft 7 in WEIGHT: 191 lb 4.8 oz DATE OF STUDY: 05/26/[address]: Chandra Rodriguez MD 2-DIMENSIONAL: YES M.MODE: YES DOPPLER: YES COLOR FLOW: YES TDS: NO PORTABLE: NO DEFINITY: NO BUBBLE STUDY: NO DIAGNOSIS: STROKE CARDIAC HISTORY: CATHERIZATION: NO SURGERY: NO PROSTHETIC VALVE: NO PACEMAKER: NO MEASUREMENTS (cm) DIASTOLIC (NORMALS) SYSTOLIC (NORMALS) IVSd 1.2 (0.6-1.2) LA Diam 3.9 (1.9-4.0) LVEF 73% LVIDd 4.3 (3.5-5.7) LVIDs 2.5 (2.0-3.5) %FS 42% LVPWd 1.2 (0.6-1.2) Ao Diam 2.8 (2.0-3.7) 2 DIMENSIONAL ASSESSMENT: RIGHT ATRIUM: NORMAL LEFT ATRIUM: NORMAL RIGHT VENTRICLE: NORMAL LEFT VENTRICLE: NORMAL TRICUSPID VALVE: NORMAL MITRAL VALVE: NORMAL PULMONIC VALVE: NORMAL AORTIC VALVE: NORMAL PERICARDIAL EFFUSION: NONE AORTIC ROOT: NORMAL LEFT VENTRICULAR WALL MOTION: NORMAL. DOPPLER/COLOR FLOW: NORMAL. COMMENTS: NORMAL 2D ECHO WITH DOPPLER. NO THROMBUS. NO VEGETATION. TECHNOLOGIST: TATUM SMITH
== END 2018-05-26 16:43 | disposition home or self-care (01) ==
LOC: ER 15:14 → ERHOLD 17:12 → INTOOBSV 17:12 → 4TH 19:12
PROVIDERS: ADMIT Family Medicine; ATTEND Family Medicine
DX: G45.9 Transient cerebral ischemic attack, unspecified (principal); R29.704 NIHSS score 4; I10 Essential (primary) hypertension; E78.5 Hyperlipidemia, unspecified; Z85.46 Personal history of malignant neoplasm of prostate; Z91.14 Patient's other noncompliance with medication regimen; Z88.5 Allergy status to narcotic agent; F17.210 Nicotine dependence, cigarettes, uncomplicated; G25.0 Essential tremor; E16.2 Hypoglycemia, unspecified; E66.9 Obesity, unspecified; Z68.30 Body mass index [BMI] 30.0-30.9, adult
CPT/HCPCS: 36415; 70450; 70496; 70544; 70553; 71045; 80048; 80053; 80061; 82962; 83036; 85025; 85610; 85730; 93005; 93306; 93880; 94760; 96374; 97163; 99285; A9577; J1650; J7030; Q9967

== ENCOUNTER 2021-03-30 10:12 | Emergency (ER) | payer SELFPAY ==
--- NOTE | 2021-03-30 12:07 | RAD REPORT ---
EXAM DESCRIPTION: RAD - Ankle Left 3 View -03/30/2021 11:33 am CLINICAL HISTORY: Left ankle pain status post injury FINDINGS: No fracture or dislocation is seen. Soft tissue swelling
--- NOTE | 2021-03-30 12:08 | RAD REPORT ---
EXAM DESCRIPTION: Catalina Kapoor Left03/30/2021 11:33 am CLINICAL HISTORY: Left leg pain status post injury FINDINGS: No fracture is seen
--- NOTE | 2021-03-30 12:09 | RAD REPORT ---
EXAM DESCRIPTION: RAD - Forearm Right - 03/30/2021 11:33 am CLINICAL HISTORY: Right arm pain status post fall FINDINGS: No fracture is seen.
--- NOTE | 2021-03-30 12:20 | ER ---
Nurse's Notes [facility] Name: Pedro Butts Age: 61 yrs Sex: Male : 1960 Arrival Date: 03/30/2021 Time: 10:15 Bed 10 Private MD: Diagnosis: Sprain of ankle;Fall on same level from slipping, tripping and stumbling;Abrasion of right forearm;Contusion of right forearm Presentation: 03/30 10:26 Chief complaint: Patient states: Slipped and fell last night. Over stretched L leg, ca1 now, both knees hurting, pain on L leg, swelling on L ankle, pain on R forearm. Coronavirus screen: Client denies travel out of the [place] in the last 14 days. At this time, the client does not indicate any symptoms associated with coronavirus-19. Ebola Screen: Patient negative for fever greater than or equal to 101.5 degrees Fahrenheit, and additional compatible Ebola Virus Disease symptoms Patient denies exposure to infectious person. Patient denies travel to an Ebola-affected area in the 21 days before illness onset. No symptoms or risks identified at this time. Initial Sepsis Screen: Does the patient meet any 2 criteria? No. Patient's initial sepsis screen is negative. Does the patient have a suspected source of infection? No. Patient's initial sepsis screen is negative. Risk Assessment: Do you want to hurt yourself or someone else? Patient reports no desire to harm self or others. Onset of symptoms was March 30, 2021. 10:26 Method Of Arrival: Ambulatory ca1 10:26 Acuity: DAMIEN 4 ca1 Historical: - Allergies: 10:29 Demerol; ca1 - PMHx: 10:29 heat stroke; High Cholesterol; Prostate Cancer; Diabetes - IDDM; Diabetes - NIDDM; ca1 - PSHx: 10:29 Hernia repair; ca1 - Immunization history:: Client reports receiving the 1st dose of the Covid vaccine, Pneumococcal vaccine is not up to date, Flu vaccine is not up to date. - Social history:: Smoking status: Patient reports the use of cigarette tobacco products, smokes one pack cigarettes per day. Screenin:40 Abuse screen: Denies threats or abuse. Denies injuries from another. Nutritional ld1 screening: No deficits noted. Tuberculosis screening: No symptoms or risk factors identified. Fall Risk Fall in past 12 months (25 points). Assessment: 10:40 General: Appears in no apparent distress. comfortable, Behavior is calm, cooperative, ld1 appropriate for age. Pain: Complains of pain in palmar aspect of right forearm, right knee, left knee, left cole, anterior aspect of left ankle and dorsum of left foot Pain does not radiate. Pain currently is 6 out of 10 on a pain scale. Quality of pain is described as pressure, stabbing, Pain began 1 day ago. Is continuous. Neuro: Level of Consciousness is awake, alert, obeys commands, Oriented to person, place, time, situation, Appropriate for age. Cardiovascular: Capillary refill < 3 seconds Patient's skin is warm and dry. Respiratory: Airway is patent Respiratory effort is even, unlabored, Respiratory pattern is regular, symmetrical. GI: Abdomen is flat, non-distended. : No signs and/or symptoms were reported regarding the genitourinary system. EENT: No signs and/or symptoms were reported regarding the EENT system. Derm: No signs and/or symptoms reported regarding the dermatologic system. Musculoskeletal: No signs and/or symptoms reported regarding the musculoskeletal system. 11:54 Reassessment: Patient appears in no apparent distress at this time. Patient and/or ld1 family updated on plan of care and expected duration. Pain level reassessed. Patient is alert, oriented x 3, equal unlabored respirations, skin warm/dry/pink. Sitting in chair at bedside with . Denies concerns at this time. Waiting on results. Patient denies pain at this time. Vital Signs: 10:26 BP 155 / 82; Pulse 78; Resp 16; Temp 97.1(TE); Pulse Ox 98% on R/A; Weight 86.64 kg ca1 (R); Height 5 ft. 7 in. (170.18 cm) (R); Pain 6/10; 10:40 BP 139 / 74; Pulse 78; Resp 18; Temp 97.5(TE); Pulse Ox 98% on R/A; Weight 86.64 kg; ld1 Height 5 ft. 10 in. (177.80 cm); Pain 6/10; 11:55 BP 142 / 78; Pulse 80; Resp 18; Pulse Ox 100% on R/A; ld1 10:40 Body Mass Index 27.41 (86.64 kg, 177.80 cm) ld1 ED Course: 10:15 Patient arrived in ED. ds1 10:28 Triage completed. ca1 10:29 Arm band placed on right wrist. ca1 10:30 [facility]ter [facility]C [facility] kb 10:30 Janeen Crespo MD is Attending Physician. kb 10:40 Laurie Nix, RN is Primary Nurse. ld1 10:40 Patient has correct armband on for positive identification. Bed in low position. Call ld1 light in reach. Side rails up X 1. Pulse ox on. NIBP on. Door closed. Noise minimized. Warm blanket given. 10:40 No provider procedures requiring assistance completed. ld1 11:33 Ankle Left 3 View XRAY In Process Unspecified. EDMS 11:33 Tib Fib Left XRAY In Process Unspecified. EDMS 11:33 Forearm Right XRAY In Process Unspecified. EDMS 12:28 Patient did not have IV access during this emergency room visit. ld1 Administered Medications: 12:20 Drug: Tetanus-Diphtheria Toxoid Adult 0.5 ml {Facsimile Machine Operator: [employer]. Exp: ld1 04/19/2022. Lot #: [id number]. } Route: IM; Site: left deltoid; Outcome: 12:19 Discharge ordered by . kb 12:28 Patient left the ED. sv 12:28 Discharged to home ambulatory. ld1 12:28 Condition: good 12:28 Discharge instructions given to patient, Instructed on discharge instructions, follow ld1 up and referral plans. Demonstrated understanding of instructions, follow-up care. Signatures: Dispatcher [employer] EDUT Nakia Painter FNP-C FNP-Ckb Verde, Stephanie RN RN Juana Hughes ds1 Cordelia Tapia RN RN ca1 Laurie Nix, WILLIAM RN ld1 Corrections: (The following items were deleted from the chart) 18:40 18:40 Patient did not have IV access during this emergency room visit. ld1 ld1
--- NOTE | 2021-03-30 12:20 | EDPHYS ---
Physician Documentation [facility] Name: Pedro Butts Age: 61 yrs Sex: Male : 1960 Arrival Date: 03/30/2021 Time: 10:15 Bed 10 Private MD: ED Physician Janeen Crespo HPI: 03/30 16:37 This 61 yrs old Male presents to ER via Ambulatory with complaints of Fall kb Injury. 16:37 Details of fall: The patient fell from an upright position, while walking. Onset: The kb symptoms/episode began/occurred last night. Associated injuries: The patient sustained anterior aspect of left ankle, painful injury, swelling, medial aspect of right knee and medial aspect of left knee, painful injury, palmar aspect of right forearm, abrasion, contusion, painful injury. Severity of symptoms: At their worst the symptoms were moderate, in the emergency department the symptoms are unchanged. The patient has not experienced similar symptoms in the past. The patient has not recently seen a physician. Pt reports he slipped and fell last night. c/o pain and swelling to left ankle, pain to medial aspect of bilateral knees, pain, swelling and abrasion to right forearm. Walking without difficulty. . Historical: - Allergies: 10:29 Demerol; ca1 - PMHx: 10:29 heat stroke; High Cholesterol; Prostate Cancer; Diabetes - IDDM; Diabetes - NIDDM; ca1 - PSHx: 10:29 Hernia repair; ca1 - Immunization history:: Client reports receiving the 1st dose of the Covid vaccine, Pneumococcal vaccine is not up to date, Flu vaccine is not up to date. - Social history:: Smoking status: Patient reports the use of cigarette tobacco products, smokes one pack cigarettes per day. ROS: 16:37 Eyes: Negative for injury, pain, redness, and discharge. kb 16:37 MS/extremity: Positive for abrasion, contusion, pain, swelling, tenderness, of the anterior aspect of left ankle and palmar aspect of right forearm and medial aspect of right knee and medial aspect of left knee. 16:37 Skin: Positive for abrasion(s), of the palmar aspect of right forearm. 16:37 All other systems are negative. Exam: 16:37 Constitutional: This is a well developed, well nourished patient who is awake, alert, kb and in no acute distress. Head/Face: Normocephalic, atraumatic. ENT: Moist Mucous membranes Cardiovascular: Regular rate and rhythm with a normal S1 and S2. No gallops, murmurs, or rubs. No pulse deficits. Respiratory: Respirations even and unlabored. No increased work of breathing, no retractions or nasal flaring. Abdomen/GI: Soft, non-tender. No distention Neuro: Awake and alert, GCS 15, oriented to person, place, time, and situation. Moves all extremities. Normal gait. Psych: Awake, alert, with orientation to person, place and time. Behavior, mood, and affect are within normal limits. 16:37 Musculoskeletal/extremity: Extremities: grossly normal except: noted in the medial aspect of right knee and medial aspect of left knee: pain, noted in the anterior aspect of left ankle: pain, swelling, tenderness, ROM: intact in all extremities, Circulation is intact in all extremities. Sensation intact. Weight bearing: able to fully bear weight. 16:37 Skin: injury, abrasion(s), very small abrasion noted, of the palmar aspect of right forearm, contusion(s), that are superficial, of the palmar aspect of right forearm. Vital Signs: 10:26 BP 155 / 82; Pulse 78; Resp 16; Temp 97.1(TE); Pulse Ox 98% on R/A; Weight 86.64 kg ca1 (R); Height 5 ft. 7 in. (170.18 cm) (R); Pain 6/10; 10:40 BP 139 / 74; Pulse 78; Resp 18; Temp 97.5(TE); Pulse Ox 98% on R/A; Weight 86.64 kg; ld1 Height 5 ft. 10 in. (177.80 cm); Pain 6/10; 11:55 BP 142 / 78; Pulse 80; Resp 18; Pulse Ox 100% on R/A; ld1 10:40 Body Mass Index 27.41 (86.64 kg, 177.80 cm) ld1 MDM: 10:30 Patient medically screened. kb 12:18 Data reviewed: vital signs, nurses notes. Data interpreted: Pulse oximetry: on room air kb is 100 %. Interpretation: normal. 16:37 Counseling: I had a detailed discussion with the patient and/or guardian regarding: the kb historical points, exam findings, and any diagnostic results supporting the discharge/admit diagnosis, radiology results, the need for outpatient follow up, a family practitioner, to return to the emergency department if symptoms worsen or persist or if there are any questions or concerns that arise at home. 03/30 10:38 Order name: Ankle Left 3 View XRAY; Complete Time: 12:08 kb 03/30 10:38 Order name: Tib Fib Left XRAY; Complete Time: 12:10 kb 03/30 10:38 Order name: Forearm Right XRAY; Complete Time: 12:10 kb 03/30 12:19 Order name: Jonas Wrap; Complete Time: 12:20 kb Administered Medications: 12:20 Drug: Tetanus-Diphtheria Toxoid Adult 0.5 ml {Order Expediter: [employer]. Exp: ld1 04/19/2022. Lot #: [id number]. } Route: IM; Site: left deltoid; Disposition: 18:40 Co-signature as Attending Physician, Janeen Crespo MD. ma2 Disposition: 03/30/21 12:19 Discharged to Home. Impression: Sprain of ankle, Fall on same level from slipping, tripping and stumbling, Abrasion of right forearm, Contusion of right forearm. - Condition is Stable. - Discharge Instructions: Musculoskeletal Pain, Ankle Sprain, [id number]. - Medication Reconciliation Form, Thank You Letter, Antibiotic Education, Prescription Opioid Use form. - Follow up: Emergency Department; When: As needed; Reason: Worsening of condition. Follow up: Private Physician; When: 2 - 3 days; Reason: Recheck today's complaints, Continuance of care, Re-evaluation by your physician. Signatures: Dispatcher [employer] Nakia Wilkins, AGRICULTURAL REAL ESTATE AGENT-C AGRICULTURAL REAL ESTATE AGENT-Christine Champion RN RN sv Alzahri, Mohammad, MD MD ma2 Cordelia Tapia RN RN ca1 Dibbern, Lauren, RN RN ld1 Corrections: (The following items were deleted from the chart) 12:28 12:19 03/30/2021 12:19 Discharged to Home. Impression: Sprain of ankle; Fall on same sv level from slipping, tripping and stumbling; Abrasion of right forearm; Contusion of right forearm. Condition is Stable. Forms are Medication Reconciliation Form, Thank You Letter, Antibiotic Education, Prescription Opioid Use. Follow up: Emergency Department; When: As needed; Reason: Worsening of condition. Follow up: Private Physician; When: 2 - 3 days; Reason: Recheck today's complaints, Continuance of care, Re-evaluation by your physician. kb
[2021-03-30 12:36] VITALS: TEMP 97.5
[2021-03-30] MEDS ORDERED: TETANUS & DIPHTHERIA TOX,ADULT 0.5 ML VIAL ONE (12:36)
[2021-03-30 12:38] VITALS: BP 142/78; O2SAT 100
== END 2021-03-30 12:28 | disposition home or self-care (01) ==
LOC: ER 10:12
DX: S93.402A Sprain of unspecified ligament of left ankle, initial encounter (principal); S50.811A Abrasion of right forearm, initial encounter; S50.11XA Contusion of right forearm, initial encounter; Z23 Encounter for immunization; W01.0XXA Fall on same level from slipping, tripping and stumbling without subsequent striking against object, initial encounter; M25.561 Pain in right knee; M25.562 Pain in left knee; E78.00 Pure hypercholesterolemia, unspecified; C61 Malignant neoplasm of prostate; E11.9 Type 2 diabetes mellitus without complications; F17.210 Nicotine dependence, cigarettes, uncomplicated
CPT/HCPCS: 90471; 90714; 99283

== ENCOUNTER 2022-07-28 20:24 | Emergency (ER) | payer SELFPAY ==
[2022-07-28 21:02] LABS: Absolute Lymphocytes (CBC) 1.2 K/uL (0.7-4.9); Hematocrit 46.1 % (39.6-49.0); Lymphocytes % 8.5 % (15.3-44.8); MCV 86.7 fL (80-100); MPV 7.8 fL (7.6-11.3); RBC Red Blood Cell Count 5.31 M/uL (4.33-5.43)
[2022-07-28 21:06] LABS: Protime INR 1.12
[2022-07-28] MEDS ORDERED: IBUPROFEN 400 MG TAB ONE (21:20)
[2022-07-28 21:23] LABS: Albumin 3.9 g/dL (3.4-5.0); Bilirubin Total 0.8 mg/dL (0.2-1.0); Protein, Total 7.6 g/dL (6.4-8.2); Troponin High Sensitivity 5.1 pg/mL (<58.9)
--- NOTE | 2022-07-28 21:36 | RAD REPORT ---
EXAM DESCRIPTION: RAD - Chest Single View - 07/28/2022 9:25 pm CLINICAL HISTORY: SOB COMPARISON: No comparisonsChest Pa And Lat (2 Views) dated 09/17/2019; Abdomen 1 View (KUB) dated 09/17/2019; Abdomen 1 View (KUB) dated 11/02/2018; Chest Single View dated 05/25/2018 FINDINGS: Lines: None. Lungs: Increased prominence of the pulmonary interstitium Pleural: No significant pleural effusions or pneumothorax. Cardiac: The heart size is within normal limits. Mediastinum: Within normal limits. Bones: No acute fractures. ACDF in the cervical spine. Other: None IMPRESSION: Increased prominence of the pulmonary interstitium could represent mild interstitial ok ma.
[2022-07-28 22:12] LABS: Urine Blood Trace-intact (Negative); Urine Glucose Trace (Negative); Urine Protein 1+ (Negative); Urine Specific Gravity 1.015 (1.005-1.030)
[2022-07-28] MEDS ORDERED: ACETAMINOPHEN 500 MG TAB ONE (22:14)
[2022-07-28] MEDS ORDERED: LEVALBUTEROL 1.25 MG/3 ML NEB ONE (23:12)
[2022-07-28] MEDS ORDERED: CEFTRIAXONE 1000 MG/VIAL ONE (23:41)
[2022-07-28] MEDS ORDERED: NA CHLORIDE 0.9% 50 ML ONE (23:41)
--- NOTE | 2022-07-29 01:50 | EDPHYS ---
Physician Documentation [facility] Name: Pedro Butts Age: 62 yrs Sex: Male : 1960 Arrival Date: 07/28/2022 Time: 20:26 Bed 13 Private MD: ED Physician Evangelista Boudreaux HPI: 07/29 04:07 This 62 yrs old Male presents to ER via EMS with complaints of Shortness of breath. kdr 04:07 Patient feels like she has been short of breath for at least 2 weeks. Over that period kdr of time the her shortness of breath is progressively worsened.. Onset: The symptoms/episode began/occurred gradually, 2 week(s) ago. Severity of symptoms: At their worst the symptoms were mild moderate in the emergency department the symptoms are unchanged. The patient has not experienced similar symptoms in the past. The patient has not recently seen a physician. Patient reports that the patient has been having persistent but worsening shortness of breath over the last couple weeks. In addition to that the last 12 hours, he has spiked a fever at home. He generally feels poorly. About 3 days ago he had been tested for COVID and at that time it was negative. The patient is a smoker and has COPD. Historical: - Allergies: 07/28 20:28 Demerol; lg3 - PMHx: 20:28 Diabetes - IDDM; heat stroke; High Cholesterol; Prostate Cancer; heart attack; stroke; lg3 - PSHx: 20:28 neck; feet; stomach; elbow; lg3 - Immunization history:: Adult Immunizations up to date, moderna X3. - Social history:: Smoking status: Patient reports the use of cigarette tobacco products, smokes one-half pack cigarettes per day, Patient uses alcohol, occasionally. ROS: 07/29 04:07 Constitutional: Negative for weight loss -he has had fever and chills Eyes: Negative kdr for injury, pain, redness, and discharge, Neck: Negative for injury, pain, and swelling, Cardiovascular: Negative for chest pain, palpitations, and edema, Abdomen/GI: Negative for abdominal pain, nausea, vomiting, diarrhea, and constipation, Back: Negative for injury and pain, : Negative for injury, bleeding, discharge, and swelling, MS/Extremity: Negative for injury and deformity, Skin: Negative for injury, rash, and discoloration, Neuro: Negative for headache, weakness, numbness, tingling, and seizure activity. Psych: Negative for depression, anxiety, suicide ideation, homicidal ideation, and hallucinations, Allergy/Immunology: Negative for hives, rash, and allergies, Endocrine: Negative for neck swelling, polydipsia, polyuria, polyphagia, and marked weight changes, Hematologic/Lymphatic: Negative for swollen nodes, abnormal bleeding, and unusual bruising. Respiratory: Positive for cough, with no reported sputum, dyspnea on exertion, shortness of breath, on exertion. wheezing, Negative for hemoptysis, pleurisy, wheezing. Exam: 04:07 Constitutional: This is a well developed, well nourished patient who is awake, alert, kdr and in no acute distress. Head/Face: Normocephalic, atraumatic. Eyes: Pupils equal round and reactive to light, extra-ocular motions intact. Lids and lashes normal. Conjunctiva and sclera are non-icteric and not injected. Cornea within normal limits. Periorbital areas with no swelling, redness, or edema. Neck: Trachea midline, no thyromegaly or masses palpated, and no cervical lymphadenopathy. Supple, full range of motion without nuchal rigidity, or vertebral point tenderness. No Meningismus. Chest/axilla: Normal chest wall appearance and motion. Nontender with no deformity. No lesions are appreciated. Cardiovascular: Regular rate and rhythm with a normal S1 and S2. No gallops, murmurs, or rubs. Normal PMI, no JVD. No pulse deficits. Respiratory: Lungs have equal breath sounds bilaterally, clear to auscultation and percussion. No rales, rhonchi or wheezes noted. No increased work of breathing, no retractions or nasal flaring. Abdomen/GI: Soft, non-tender, with normal bowel sounds. No distension or tympany. No guarding or rebound. No evidence of tenderness throughout. Back: No spinal tenderness. No costovertebral tenderness. Full range of motion. Skin: Warm, dry with normal turgor. Normal color with no rashes, no lesions, and no evidence of cellulitis. MS/ Extremity: Pulses equal, no cyanosis. Neurovascular intact. Full, normal range of motion. Neuro: Awake and alert, GCS 15, oriented to person, place, time, and situation. Cranial nerves II-XII grossly intact. Motor strength 5/5 in all extremities. Sensory grossly intact. Cerebellar exam normal. Normal gait. Psych: Awake, alert, with orientation to person, place and time. Behavior, mood, and affect are within normal limits. Vital Signs: 07/28 20:26 BP 147 / 82; Pulse 106; Resp 23 S; Temp 99.9(O); Pulse Ox 97% on 3 lpm NC; Weight 84.82 lg3 kg (R); Height 5 ft. 7 in. (170.18 cm) (R); Pain 0/10; 22:01 BP 123 / 67; Pulse 97; Resp 24; Temp 100.0(O); Pulse Ox 97% on 3 lpm NC; lg3 23:37 BP 133 / 78; Pulse 99; Resp 25; Temp 98.9(O); Pulse Ox 98% on 3 lpm NC; lg3 07/29 01:11 BP 102 / 50; Pulse 84; Resp 21; Pulse Ox 97% on 3 lpm NC; lg3 01:38 BP 111 / 62; Pulse 78; Resp 24; Pulse Ox 95% on R/A; lg3 01:59 BP 99 / 72; Pulse 75; Resp 18; Pulse Ox 94% on R/A; tw5 07/28 20:26 Body Mass Index 29.29 (84.82 kg, 170.18 cm) lg3 MDM: 01:49 Patient medically screened. kdr 04:07 Data reviewed: vital signs, nurses notes, lab test result(s), radiologic studies. kdr Counseling: I had a detailed discussion with the patient and/or guardian regarding: the historical points, exam findings, and any diagnostic results supporting the discharge/admit diagnosis, lab results, radiology results, the need for outpatient follow up. ED course: I discussed with the patient the possibility of admitting him. We ambulated the patient in the department and recorded vital signs. His vital signs actually improved with increased activity. Patient was looking much better and by mutual agreement we will attempt to convalesce at home. Patient was happy with the care provided the plan for discharge and follow-up. 07/28 20:29 Order name: CBC with Diff; Complete Time: 21:48 kdr 07/28 20:29 Order name: Troponin HS; Complete Time: 22:01 kdr 07/28 20:30 Order name: BNP; Complete Time: 22:01 la1 07/28 20:41 Order name: Blood Culture Adult (2) kdr 07/28 20:41 Order name: Lactate; Complete Time: 22:01 kdr 07/28 20:41 Order name: Protime (+inr); Complete Time: 22:01 kdr 07/28 20:41 Order name: Ptt, Activated; Complete Time: 21:48 kdr 07/28 20:46 Order name: Flu; Complete Time: 22:53 la1 07/28 20:46 Order name: COVID-19 SARS RT PCR (Document "Date of Onset" if Symptomatic); Complete la1 Time: 22:13 07/28 20:59 Order name: Comprehensive Metabolic Panel; Complete Time: 21:48 EDMS 07/28 21:14 Order name: Glucose, Ancillary Testing; Complete Time: 22:01 EDMS 07/28 22:12 Order name: Urine Dipstick-Ancillary; Complete Time: 22:13 EDMS 07/28 20:29 Order name: XRAY Chest (1 view); Complete Time: 21:48 kdr 07/28 20:29 Order name: EKG; Complete Time: 20:30 kdr 07/28 20:29 Order name: Cardiac monitoring; Complete Time: 20:32 kdr 07/28 20:29 Order name: EKG - Nurse/Tech; Complete Time: 21:09 kdr 07/28 20:29 Order name: IV Saline Lock; Complete Time: 20:53 kdr 07/28 20:29 Order name: Labs collected and sent; Complete Time: 20:53 kdr 07/28 20:29 Order name: O2 Per Protocol; Complete Time: 20:32 kdr 07/28 20:29 Order name: O2 Sat Monitoring; Complete Time: 20:32 kdr 07/28 20:41 Order name: Accucheck; Complete Time: 21:09 kdr 07/28 20:41 Order name: IV Saline Lock - Large Bore; Complete Time: 20:54 kdr 07/28 20:41 Order name: Urine Dipstick-Ancillary (obtain specimen); Complete Time: 22:07 kdr 07/28 23:24 Order name: CT Chest, Abdomen, Pelvis - W/Contrast kdr Administered Medications: 07/28 21:11 Drug: Motrin (ibuprofen) 800 mg Route: PO; lg3 22:03 Follow up: Response: No adverse reaction; No change in condition; Temperature is lg3 unchanged 22:08 Drug: Tylenol 1000 mg Route: PO; lg3 23:37 Follow up: Response: No adverse reaction; Temperature is decreased lg3 23:08 Drug: Xopenex (levalbuterol) (3) 1.25 mg Route: Inhalation; lg3 23:25 Follow up: Response: No adverse reaction lg3 23:37 Drug: Rocephin - (cefTRIAXone) 1 grams Route: IVPB; Infused Over: 30 mins; Site: right lg3 antecubital; 23:57 Follow up: Response: No adverse reaction; IV Status: Completed infusion; IV Intake: [id number] Disposition Summary: 07/29/22 01:49 Discharge Ordered Location: Home kdr Problem: new kdr Symptoms: have improved kdr Condition: Stable kdr Diagnosis - Acute bronchitis, unspecified kdr - Other viral pneumonia kdr - COPD/ Chronic obstructive pulmonary disease with acute lower respiratory infection kdr - Tobacco use kdr Followup: kdr - With: Private Physician - When: 2 - 3 days - Reason: If symptoms return, Further diagnostic work-up, Recheck today's complaints, Continuance of care, Re-evaluation by your physician Discharge Instructions: - Discharge Summary Sheet kdr - Acute Bronchitis, Adult kdr - Chronic Obstructive Pulmonary Disease kdr - Community-Acquired Pneumonia, Adult, Xduc-ac-Titt kdr Forms: - Medication Reconciliation Form kdr - Thank You Letter kdr - Antibiotic Education kdr Prescriptions: - albuterol sulfate 90 mcg/actuation Inhalation HFA aerosol inhaler - inhale 2 puff by INHALATION route every 4 hours As needed; 2 canister; Refills: kdr 0, Product Selection Permitted - Tessalon Perles 100 mg Oral Capsule - take 1 capsule by ORAL route every 8 hours As needed; 15 capsule; Refills: 0, kdr Product Selection Permitted - Zithromax Z-Deniz 250 mg Oral Tablet - take 1 tablet by ORAL route as directed for 5 days Day 1 - take two (2) tablets kdr one time. Day 2, 3, 4 , 5 take one (1) tablet once daily.; 6 tablet; Refills: 0, Product Selection Permitted Signatures: [facility] Evangelista Small MD MD kdr Trav Holloway, SHOVEL LOGGER-C SHOVEL LOGGER-Cla1 Neisha Holland RN RN lg3 Corrections: (The following items were deleted from the chart) 20:58 20:42 COMPREHENSIVE METABOLIC PANEL+C.LAB.BRZ ordered. EDMS EDMS 20:59 20:30 BASIC METABOLIC PANEL+C.LAB.BRZ ordered. EDMS EDMS
--- NOTE | 2022-07-29 01:50 | ER ---
Nurse's Notes [facility] Name: Pedro Butts Age: 62 yrs Sex: Male : 1960 Arrival Date: 07/28/2022 Time: 20:26 Bed 13 Private MD: Diagnosis: Acute bronchitis, unspecified;Other viral pneumonia;COPD/ Chronic obstructive pulmonary disease with acute lower respiratory infection;Tobacco use Presentation: 07/28 20:26 Chief complaint: Patient states: SOB for 2 weeks and worsening. Coronavirus screen: lg3 Client denies travel out of the [place] in the last 14 days. At this time, the client does not indicate any symptoms associated with coronavirus-19. Ebola Screen: No symptoms or risks identified at this time. Initial Sepsis Screen: Does the patient meet any 2 criteria? No. Patient's initial sepsis screen is negative. Does the patient have a suspected source of infection? No. Patient's initial sepsis screen is negative. Risk Assessment: Do you want to hurt yourself or someone else? Patient reports no desire to harm self or others. Onset of symptoms is unknown. 20:26 Method Of Arrival: EMS: [facility] lg3 20:26 Acuity: DAMIEN 3 lg3 Triage Assessment: 20:28 General: Appears distressed, uncomfortable, Behavior is calm, cooperative, anxious. lg3 Pain: Denies pain. EENT: No deficits noted. No signs and/or symptoms were reported regarding the EENT system. Neuro: No deficits noted. Level of Consciousness is awake, alert, obeys commands, Oriented to person, place, time, situation, Speech is normal. Cardiovascular: No deficits noted. Denies chest pain, Capillary refill < 3 seconds Clubbing of nail beds is absent JVD is absent Patient's skin is warm and dry. Respiratory: Reports shortness of breath at rest on exertion cough that is labored breathing Airway is patent Trachea midline Respiratory effort is even, Respiratory pattern is tachypnea Breath sounds are clear bilaterally. GI: No deficits noted. No signs and/or symptoms were reported involving the gastrointestinal system. Abdomen is flat, non-distended, Bowel sounds present X 4 quads. Abd is soft and non tender X 4 quads. : No deficits noted. No signs and/or symptoms were reported regarding the genitourinary system. Derm: No deficits noted. No signs and/or symptoms reported regarding the dermatologic system. Skin is intact, is healthy with good turgor, Skin is dry, Skin is normal, Skin temperature is warm. Musculoskeletal: No deficits noted. No signs and/or symptoms reported regarding the musculoskeletal system. Circulation, motion, and sensation intact. Range of motion: intact in all extremities. Historical: - Allergies: 20:28 Demerol; lg3 - PMHx: 20:28 Diabetes - IDDM; heat stroke; High Cholesterol; Prostate Cancer; heart attack; stroke; lg3 - PSHx: 20:28 neck; feet; stomach; elbow; lg3 - Immunization history:: Adult Immunizations up to date, moderna X3. - Social history:: Smoking status: Patient reports the use of cigarette tobacco products, smokes one-half pack cigarettes per day, Patient uses alcohol, occasionally. Screenin:31 Abuse screen: Denies threats or abuse. Denies injuries from another. Nutritional lg3 screening: No deficits noted. Tuberculosis screening: No symptoms or risk factors identified. Fall Risk None identified. Assessment: 20:31 General: see triage assessment . lg3 22:01 Reassessment: Patient appears in no apparent distress at this time. No changes from lg3 previously documented assessment. Patient and/or family updated on plan of care and expected duration. Pain level reassessed. Patient is alert, oriented x 3, equal unlabored respirations, skin warm/dry/pink. 23:38 Reassessment: Patient appears in no apparent distress at this time. No changes from lg3 previously documented assessment. Patient and/or family updated on plan of care and expected duration. Pain level reassessed. Patient is alert, oriented x 3, equal unlabored respirations, skin warm/dry/pink. Patient states symptoms have improved. 07/29 01:11 Reassessment: Patient appears in no apparent distress at this time. No changes from lg3 previously documented assessment. Patient and/or family updated on plan of care and expected duration. Pain level reassessed. Patient is alert, oriented x 3, equal unlabored respirations, skin warm/dry/pink. 01:37 General: pt ambulated around unit. tolerated well. denies SOB on ambulation at this lg3 time . Vital Signs: 07/28 20:26 BP 147 / 82; Pulse 106; Resp 23 S; Temp 99.9(O); Pulse Ox 97% on 3 lpm NC; Weight 84.82 lg3 kg (R); Height 5 ft. 7 in. (170.18 cm) (R); Pain 0/10; 22:01 BP 123 / 67; Pulse 97; Resp 24; Temp 100.0(O); Pulse Ox 97% on 3 lpm NC; lg3 23:37 BP 133 / 78; Pulse 99; Resp 25; Temp 98.9(O); Pulse Ox 98% on 3 lpm NC; lg3 07/29 01:11 BP 102 / 50; Pulse 84; Resp 21; Pulse Ox 97% on 3 lpm NC; lg3 01:38 BP 111 / 62; Pulse 78; Resp 24; Pulse Ox 95% on R/A; lg3 01:59 BP 99 / 72; Pulse 75; Resp 18; Pulse Ox 94% on R/A; tw5 07/28 20:26 Body Mass Index 29.29 (84.82 kg, 170.18 cm) lg3 ED Course: 07/28 20:26 Patient arrived in ED. lg3 20:26 Neisha Holland, WILLIAM is Primary Nurse. lg3 20:28 Evangelista Boudreaux MD is Attending Physician. kdr 20:28 Triage completed. lg3 20:28 Arm band placed on right wrist. lg3 20:31 Patient has correct armband on for positive identification. Placed in gown. Bed in low lg3 position. Call light in reach. Side rails up X 1. Client placed on continuous cardiac and pulse oximetry monitoring. NIBP monitoring applied. monitoring and evaluation advisor on. Door closed. Noise minimized. Family accompanied patient. 20:54 Blood Culture Adult (2) Sent. lg3 20:54 Lactate Sent. lg3 20:54 Protime (+inr) Sent. lg3 20:54 Ptt, Activated Sent. lg3 20:54 CBC with Diff Sent. lg3 20:54 Troponin HS Sent. lg3 20:54 Inserted saline lock: 20 gauge in right antecubital area, using aseptic technique. lg3 Blood collected. 21:09 COVID-19 SARS RT PCR (Document "Date of Onset" if Symptomatic) Sent. lg3 21:09 Flu Sent. lg3 21:27 XRAY Chest (1 view) In Process Unspecified. EDMS 07/29 00:32 CT Chest, Abdomen, Pelvis - W/Contrast In Process Unspecified. EDMS 01:59 No provider procedures requiring assistance completed. IV discontinued, intact, tw5 bleeding controlled, No redness/swelling at site. Pressure dressing applied. Administered Medications: 07/28 21:11 Drug: Motrin (ibuprofen) 800 mg Route: PO; lg3 22:03 Follow up: Response: No adverse reaction; No change in condition; Temperature is lg3 unchanged 22:08 Drug: Tylenol 1000 mg Route: PO; lg3 23:37 Follow up: Response: No adverse reaction; Temperature is decreased lg3 23:08 Drug: Xopenex (levalbuterol) (3) 1.25 mg Route: Inhalation; lg3 23:25 Follow up: Response: No adverse reaction lg3 23:37 Drug: Rocephin - (cefTRIAXone) 1 grams Route: IVPB; Infused Over: 30 mins; Site: right lg3 antecubital; 23:57 Follow up: Response: No adverse reaction; IV Status: Completed infusion; IV Intake: 51okia9 Medication: 07/29 02:02 VIS not applicable for this client. lg3 Intake: 07/28 23:57 IV: 50ml; Total: 50ml. lg3 Outcome: 07/29 01:49 Discharge ordered by . kdr 01:59 Condition: stable tw5 02:01 Discharged to home ambulatory, with significant other. lg3 02:01 Discharge instructions given to patient, Instructed on discharge instructions, follow up and referral plans. medication usage, Demonstrated understanding of instructions, follow-up care, medications, Prescriptions given X 3. 02:03 Patient left the ED. lg3 Signatures: Dispatcher [employer] EDMS Evangelista Boudreaux MD MD kdr Neisha Holland, WILLIAM RN lg3 Ritu Nunes tw5 Corrections: (The following items were deleted from the chart) 07/28 20:31 20:26 BP 147 / 82; Pulse 106bpm; Resp 16bpm; Spontaneous; Pulse Ox 97% 3 lpm Nasal lg3 Cannula; Temp 99.9F Oral; 84.82 kg Reported; Height 5 ft. 7 in. Reported; BMI: 29.2; Pain 0/10; lg3 20:58 20:54 COMPREHENSIVE METABOLIC PANEL+C.LAB.BRZ drawn and sent. lg3 EDMS 20:59 20:53 BASIC METABOLIC PANEL+C.LAB.YOLANDA drawn and sent. 3 EDMS
--- NOTE | 2022-07-29 08:51 | RAD REPORT ---
EXAM DESCRIPTION: CT - Chest Abdomen Pelvis W Cont - 07/29/2022 8:15 am CLINICAL HISTORY: 62 years, Male, fever, URI COMPARISON: 12/20/2014 TECHNIQUE: Contrast-enhanced images of the chest, abdomen and pelvis were performed utilizing 5 mm s lice thickness at 5 mm interval reconstruction from the lung apices to the ischial tuberosities after the administration of IV contrast. In addition multiplanar reformats in the coronal and sagittal plane were obtained and reviewed. This exam was performed according to our departmental dose-optimization protocol, which includes auto mated exposure control, adjustment of the mA and/or kV according to patient size and/or use of iterat sammy reconstruction technique. FINDINGS: CT chest: The lungs parenchyma demonstrate diffuse minimal increase intralobular septal th ickening, interdigital lung disease, viral pneumonia could be of consideration. No masses and/or nodu les are identified. The trachea mainstem bronchus demonstrate to be normal. There is no significant pleural and/or perica rdial effusions. The thoracic aorta demonstrate to be within normal limits. The heart is not enlarged. There are no si gnificant coronary artery calcifications. The central pulmonary arteries demonstrate to be normal. There is a permanent the right carinal lymph node measuring 1.2 cm on image 23. No additional signifi cant mediastinal and/or hilar lymphadenopathy. The axillary regions demonstrate to be clear. The bone windows demonstrate no significant skeletal lesions. CT abdomen pelvis: The liver demonstrate decreased attenuation corresponding to fatty infiltration. A lice liver, gallbladder, pancreas, spleen and adrenal glands demonstrate to be unremarkable, no focal lesions are noted. The kidneys demonstrate normal uptake of contrast media. No evidence for nephrolithiasis and/or hydro nephrosis. There is a exophytic lower pole simple left renal cyst measuring 1.9 x 1.6 cm on image 72. No follow-up is recommended. Grossly the unopacified stomach, small bowel and large bowel demonstrate to be within normal limits. There is no evidence for bowel dilatation/or free air. The appendix is normal. The left site colo n demonstrate to be decompressed with very minimal diverticulosis. There is anterior abdominal wall mesh hernia repair and bilateral inguinal hernia repair with no comp licating features. The urinary bladder demonstrate to be unremarkable. The prostate gland was not visualized suggestin g the possibility of prostatectomy. The aorta demonstrate minimal atheromatous plaque formation. There is no retroperitoneal lymphadenopathy. There is no ascites. The rest of the soft tissue and bon y structures are within normal limits. IMPRESSION: Diffuse minimal increase intralobular septal thickening, interdigital lung disease, primo l pneumonia could be of consideration. Fatty infiltration of the liver. Left renal cyst. Status post anterior abdominal wall mesh hernia repair and bilateral inguinal hernia repair with no c omplicating features. Probable prostatectomy Electronically signed by: Sathya Snider MD 07/29/2022 12:57 AM CDT Due to temporary technical issues with the PACS/Fluency reporting system, reports are being signed by the in house radiologists without review as a courtesy to insure prompt reporting. The interpreting radiologist is fully responsible for the content of the report.
--- NOTE | 2022-07-29 13:36 | EKG ---
Test Date: 2022-07-28 Test Time: 21:07:50 Consulting Project Director: MEASUREMENT RESULTS: Intervals: Rate: 93 DC: 140 QRSD: 86 QT: 336 QTc: 417 Tavares: P: 66 DC: 140 QRS: 107 T: 56 INTERPRETIVE STATEMENTS: Normal sinus rhythm Rightward axis Borderline ECG Compared to ECG 05/25/2018 15:34:35 Right-axis deviation now present Electronically Signed On 07-29-22 13:34:30 CDT by Alvin Jacobson
[2022-07-30 02:26] VITALS: TEMP 98.9
[2022-07-30 03:03] VITALS: BP 99/72; O2SAT 94
== END 2022-07-29 02:03 | disposition home or self-care (01) ==
LOC: ER 20:24
DX: J44.0 Chronic obstructive pulmonary disease with (acute) lower respiratory infection (principal); J12.89 Other viral pneumonia; Z72.0 Tobacco use
CPT/HCPCS: 36415; 71045; 71260; 74177; 80053; 81003; 82947; 83605; 83880; 84484; 85025; 85610; 85730; 87040; 87804; 93005; 96365; 99285; J7614; Q9967; U0003

== ENCOUNTER 2023-04-07 10:25 | Emergency (ER) | payer OTHER, SELFPAY ==
--- OUTSIDE RECORDS SUMMARY | 2023-04-07 10:28 | XMS REPORT | Continuity of Care Document ---
:1960 Author Organization [facility] t Address [address] [place] [address] Care Team Providers Name Role Phone Unavailable Unavailable Unavailable Problems This patient has no known problems. Allergies, Adverse Reactions, Alerts This patient has no known allergies or adverse reactions. Medications This patient has no known medications. Procedures This patient has no known procedures. Encounters Start End Encounter Admission Attending Care Care Encounter Source Date/Time Date/Time Type Type Clinicians Facility Department ID 2023-02-21 2023-02-21 Outpatient [facility] [id number] [id number] [place] 15:13:59 15:13:59 [address] [place] 2023-02-07 2023-02-07 Outpatient [facility] [id number] [id number] [place] 08:40:41 08:40:41 [address] [place] 2022-08-28 2022-08-28 Outpatient [facility] [id number] [id number] [place] 09:32:54 09:32:54 [address] [place] 2022-08-21 2022-08-21 Outpatient [facility] [id number] 022 [place] 09:57:26 09:57:26 [address] [place] Results Test Description Test Time Test Comments Results Result Comments Source HIV 1/2 4TH GEN, RFLX CONF 2022-08-24 02:56:26 Test Item Value Reference Range Interpretation Comme nts HIV 1/2 4TH GEN, RFLX CONF (test code = 3514) NON-REACTIVE NON-REAC TIVE PSA, [id number] 01:55:46 Test Item Value Reference Range Interpretation Comments PSA, TOTAL <0.02 NG/ML See_Comment NOTE: Methodol ogy is Crow (test code = Miguelito Electroch emiluminescence 2606) Immunoassay tra ceable to WHO reference stand leesa 96/760. [Automated mess age] The system which generated this result transmitted ref erence range: <=4.00. The ref erence range was not used to interpret this result as nba l/abnormal. TSH, THIRD [id number] 01:55:46 Test Item Value Reference Range Interpretation Comments TSH, THIRD GENERATION (test code 1.090 UIU/ML 0.400-4.100 = 2821) COMPREHENSIVE METABOLIC [id number] 23:58:04 Test Item Value Reference Range Interpretation Comments GLUCOSE (test code = 119 MG/DL 70-99 H 2216) BUN (test code = 23 MG/DL 8-23 2207) CREATININE (test 0.89 MG/DL 0.80-1.40 code = 221) eGFR (2020 CKD-EPI) 96 ML/MIN/1.73 >60 (test code = 88257) CALC BUN/CREAT (test 26 RATIO 6-28 code = 2235) SODIUM (test code = 144 MEQ/L 470-981 3764) POTASSIUM (test code 4.6 MEQ/L 3.5-5.4 = 2227) CHLORIDE (test code 106 MEQ/L 95-107 = 2215) CARBON DIOXIDE (test 24 MEQ/L 19-31 code = 2206) CALCIUM (test code = 9.4 MG/DL 8.5-10.5 2208) PROTEIN, TOTAL (test 6.9 G/DL 6.1-8.3 code = 2229) ALBUMIN (test code = 4.8 G/DL 3.5-5.2 2200) CALC GLOBULIN (test 2.1 G/DL 1.9-3.7 code = 2240) CALC A/G RATIO (test 2.3 RATIO 1.0-2.6 code = 2234) BILIRUBIN, TOTAL 0.6 MG/DL See_Comment [Automated message] (test code = 2207) The syste m which generated this result transmit jose reference range : <=1.2. The refe rence range was not u sed to interpret th is result as normal/abnormal . ALKALINE PHOSPHATASE 100 U/L 40-123 (test code = 2204) AST (test code = 17 U/L 9-50 2217) ALT (test code = 26 U/L 5-50 2218) LIPID [id number] 23:58:04 Test Item Value Reference Range Interpretation Comments CHOLESTEROL (test 110 MG/DL <200 code = 2210) TRIGLYCERIDES (test 146 MG/DL <150 code = 2232) HDL CHOLESTEROL (test 30 MG/DL >39 L code = 2220) CALC LDL CHOL (test 57 MG/DL <100 NOTE: C ALCULATED LDL code = 2237) IS BASED ON CRYSTAL-CRAIG METHOD WHICHINCLUDES ADJUSTABLE TRIGLYCERIDE:VL DL CHOLESTEROL RAT IO.THIS FACTOR VARIES B Y MEASURED TRIGLY CERIDE AND NON-HDLCHOL ESTEROL CONCENTRATIONS WITH INCREASED CALCU LATED LDL SEENIN HIGH ER TRIGLYCERIDE OR LOWER NON-HDL SPECIME NS. FOR MOREINFORMATION , SEE CLIENT ANNOUNCE MENT AT [email or web address] [email or web address] RATIO LDL/HDL 1.90 RATIO <3.55 UNLESS O THERWISE (test code = 2238) INDICATED , ALL TESTING PERFORMED [facility], [facility] [address] [place] [id number] [place] [address] DIRECTOR: DEX RAI M.D. IA NUMBER [id number] CAP ACCREDITATION N O. [id number] HEMOGLOBIN [id number] 03:35:18 Test Item Value Reference Range Interpretation Comments HEMOGLOBIN A1c (test 7.4 % 4.2-5.6 H AMERIC AN DIABETES code = 21537) ASSOCIATION IDELINES FOR HGB A1C: PREDIABETES/INC REASED RISK . . . . . . . 5.7 -6.4% DIAGNOSIS OF DI ABETES . . . . . . . . . >=6 .5% WITH CONFIRMATION OR APPROPRIATE SYMPTOMS NOTE: ASSAY MAY BE AFFECTED BY HEMOGLOBINOPATH IES (SICKLE CELL ANEMIA, S- C DISEASE, OTHERS) OR FIDELIA FICIALLY LOWERED BY DECR EASED RED CELL SURVIVAL ( HEMOLYTIC ANEMIAS, BLOOD LOSS, ETC.). CONSIDER ALTERN ATE TESTING OR LABORATORY C ONSULTATION. CBC W/AUTO DIFF WITH [id number] 03:20:17 Test Item Value Reference Range Interpretation Comments WBC (test code = 11.1 K/UL 3.5-11.0 H 1001) RBC (test code = 5.31 M/UL 4.50-6.10 1002) HEMOGLOBIN (test code 15.0 G/DL 13.5-17.0 = 1003) HEMATOCRIT (test code 47.1 % 40.0-51.0 = 1004) MCV (test code = 88.7 fL 80.0-99.0 1005) MCH (test code = 28.2 PG 25.0-33.0 1006) MCHC (test code = 31.8 G/DL 31.0-36.0 1007) RDW (test code = 12.3 % 11.5-15.0 1038) NEUTROPHILS (test 66.2 % code = 1008) LYMPHOCYTES (test 20.3 % code = 1010) MONOCYTES (test code 7.9 % = 1011) EOSINOPHILS (test 4.6 % code = 1012) BASOPHILS (test code 0.6 % = 1013) IMMATURE GRANULOCYTES 0.4 % (test code = 1036) NUCLEATED RBCS (test 0.0 /100 WBC'S See_Comment [Aut omated code = 1065) message] The sy stem which generated this result transmitted reference range : 0.0. The refere nce range was not u sed to interpret th is result as normal/abnormal . PLATELET COUNT (test 250 K/UL 130-400 code = 1015) ABSOLUTE NEUTROPHILS 7.32 K/UL 1.50-7.50 (test code = 1066) ABSOLUTE LYMPHOCYTES 2.25 K/UL 1.00-4.00 (test code = 1067) ABSOLUTE MONOCYTES 0.87 K/UL 0.20-1.00 (test code = 1068) ABSOLUTE EOSINOPHILS 0.51 K/UL 0.00-0.50 H (test code = 1040) ABSOLUTE BASOPHILS 0.07 K/UL 0.00-0.20 (test code = 1069) ABS IMMATURE 0.04 K/UL 0.00-0.10 GRANULOCYTES (test code = 1020) ABS NUCLEATED RBCS 0.00 K/UL 0.00-0.11 (test code = 41171)
[2023-04-07] MEDS ORDERED: TETANUS & DIPHTHERIA TOX,ADULT 0.5 ML VIAL ONE (10:51)
--- NOTE | 2023-04-07 11:39 | RAD REPORT ---
EXAM DESCRIPTION: MARIA EUGENIA - HAND - 04/07/2023 11:30 am CLINICAL HISTORY: trauma COMPARISON: Hand Left 3 View dated 01/17/2014 TECHNIQUE: Left hand, 3 views. FINDINGS: No fracture is identified. There is no dislocation or periosteal reaction noted. Joint alignment is maintained. Advanced degenerative changes at the thumb base. No foreign body or other soft tissue abnormality. IMPRESSION: No acute osseus abnormality. Advanced degenerative changes at the thumb base.
--- NOTE | 2023-04-07 12:54 | ER ---
Nurse's Notes [facility] Name: Pedro Butts Age: 63 yrs Sex: Male : 1960 Arrival Date: 04/07/2023 Time: 10:25 Bed 20 Private MD: Diagnosis: Laceration without foreign body of left little finger without damage to nail Presentation: 04/07 10:33 Chief complaint: Patient states: Left pinky laceration. Was using a saw when it nj1 happened. Not on blood thinners. 10:33 Method Of Arrival: Ambulatory [facility] 10:36 Coronavirus screen: Vaccine status: Patient reports receiving the 2nd dose of the covid nj1 vaccine. Ebola Screen: No symptoms or risks identified at this time. Initial Sepsis Screen: Does the patient meet any 2 criteria? No. Patient's initial sepsis screen is negative. Does the patient have a suspected source of infection? No. Patient's initial sepsis screen is negative. Risk Assessment: Do you want to hurt yourself or someone else? Patient reports no desire to harm self or others. Onset of symptoms was April 07, 2023 at 09:45. 10:36 Acuity: DAMIEN 3 nj1 Historical: - Allergies: 10:33 Demerol; nj1 - PMHx: 10:33 Diabetes - IDDM; Diabetes - NIDDM; High Cholesterol; stroke; Prostate Cancer; heart nj1 attack; heat stroke; - PSHx: 10:33 Elbow; feet; neck; stomach; nj1 - Immunization history:: Last tetanus immunization: unknown. - Social history:: Smoking status: Patient reports the use of cigarette tobacco products, smokes one pack cigarettes per day. Screenin:51 [facility] ED Fall Risk Assessment (Adult) History of falling in the last 3 months, kc6 including since admission No falls in past 3 months (0 pts) Confusion or Disorientation No (0 pts) Intoxicated or Sedated No (0 pts) Impaired Gait No (0 pts) Mobility Assist Device Used No (0 pt) Altered Elimination No (0 pt) Score/Fall Risk Level 0 - 2 = Low Risk Oriented to surroundings, Maintained a safe environment, Educated pt \T\ family on fall prevention, incl call for assistance when getting out of bed, Assessed \T\ reinforced patient's understanding of fall precautions, Hourly rounding (assess needs \T\ fall precautionary measures) done. Abuse screen: Denies threats or abuse. Denies injuries from another. Nutritional screening: No deficits noted. Tuberculosis screening: No symptoms or risk factors identified. Assessment: 10:49 General: Appears in no apparent distress. comfortable, Behavior is calm, cooperative, kc6 appropriate for age. Pain: Complains of pain in left hand. Neuro: Conn Agitation-Sedation Scale (RASS): 0 - Alert and Calm Level of Consciousness is awake, alert, obeys commands, Oriented to person, place, time, situation, Appropriate for age. Cardiovascular: Capillary refill < 3 seconds. Respiratory: Airway is patent Trachea midline Respiratory effort is even, unlabored, Respiratory pattern is regular, symmetrical. GI: No signs and/or symptoms were reported involving the gastrointestinal system. : No signs and/or symptoms were reported regarding the genitourinary system. EENT: No signs and/or symptoms were reported regarding the EENT system. Derm: No signs and/or symptoms reported regarding the dermatologic system. Skin is pink, warm \T\ dry. Musculoskeletal: No signs and/or symptoms reported regarding the musculoskeletal system. Circulation, motion, and sensation intact. Capillary refill < 3 seconds, Range of motion: intact in all extremities. Injury Description: Laceration sustained to left pinkey is clean, 0.5 to 2.5 cm long, not bleeding, no active bleeding noted at this time. 11:44 Reassessment: Patient appears in no apparent distress at this time. No changes from kc6 previously documented assessment. Patient and/or family updated on plan of care and expected duration. Pain level reassessed. Patient is alert, oriented x 3, equal unlabored respirations, skin warm/dry/pink. 12:31 Reassessment: Patient appears in no apparent distress at this time. No changes from kc6 previously documented assessment. Patient and/or family updated on plan of care and expected duration. Pain level reassessed. Patient is alert, oriented x 3, equal unlabored respirations, skin warm/dry/pink. Vital Signs: 10:36 BP 154 / 94; Pulse 81; Resp 18; Pulse Ox 95% ; Weight 87.54 kg; Height 5 ft. 7 in. ; nj1 Pain 10/10; 11:44 BP 137 / 89; Pulse 66; Resp 17 S; Pulse Ox 92% on R/A; kc6 12:31 BP 135 / 88; Pulse 59; Resp 17 S; Pulse Ox 95% on R/A; kc6 10:36 Body Mass Index 30.23 (87.54 kg, 170.18 cm) nj1 10:36 Pain Scale: Adult nj1 ED Course: 10:28 Patient arrived in ED. im 10:28 Ej Lewis DO is Attending Physician. ms3 10:36 Arm band placed on right wrist. EKG completed in triage. Results shown to MD. nj1 10:38 Triage completed. nj1 10:41 Ayaka Reis, RN is Primary Nurse. kc6 10:51 Patient has correct armband on for positive identification. Bed in low position. Call kc6 light in reach. Side rails up X 1. Adult w/ patient. 11:33 Hand Left 3 View XRAY In Process Unspecified. EDMS 11:58 Attending Physician role handed off by Ej Lewis DO bs3 11:58 Eduin Kirby MD is Attending Physician. bs3 11:58 Attending Physician role handed off by Eduin Kirby MD ms3 11:58 Ej Lewis DO is Attending Physician. ms3 12:52 Ruben Parr MD is Referral Physician. ms3 13:26 No provider procedures requiring assistance completed. Patient did not have IV access kc6 during this emergency room visit. Administered Medications: 10:48 Drug: Diph,Pertus(Acel),Tetanus Vac (PF) IM 0.5 ml {Operations Trainer: [employer]. Exp: kc6 04/23/2024. Lot #: [id number]. } Route: IM; Site: right deltoid; 11:23 Follow up: Response: No adverse reaction kc6 12:06 Drug: Lidocaine Infiltration (1 %) 10 ml Volume: 20 ml; Route: Infiltration; kc6 13:13 Drug: Bacitracin Topical Ointment (500 unit/g) 1 application Route: Topical; Site: left kc6 hand; Medication: 13:26 VIS not applicable for this client. kc6 Outcome: 12:53 Discharge ordered by MD. ms3 13:26 Discharged to home ambulatory, with family. kc6 13:26 Condition: stable 13:26 Discharge instructions given to patient, Instructed on discharge instructions, follow up and referral plans. medication usage, Demonstrated understanding of instructions, follow-up care, medications, Prescriptions given X 1. 13:34 Patient left the ED. kc6 Signatures: Dispatcher [employer] EDMS Ej Lewis DO DO ms3 Ayaka Reis RN RN kc6 Eduin Kirby MD MD bs3 Estefany Hoover RN RN nj1 Bisi Rhoades Corrections: (The following items were deleted from the chart) 10:38 10:33 Chief complaint: Patient states: Laceration nj1 nj1
--- NOTE | 2023-04-07 12:54 | EDPHYS ---
Physician Documentation [facility] Name: Pedro Butts Age: 63 yrs Sex: Male : 1960 Arrival Date: 04/07/2023 Time: 10:25 Bed 20 Private MD: ED Physician Ej Lewis HPI: 04/07 10:37 This 63 yrs old Male presents to ER via Ambulatory with complaints of Finger Injury. ms3 10:37 63-year-old male with past medical history of diabetes, hyperlipidemia, stroke, ms3 prostate cancer, heatstroke presents for left small finger laceration. Patient states he lacerated his finger with a saw approximate 30 minutes prior to arrival. Patient denies alleviating or inciting factors. Patient is unaware of his last tetanus vaccine. Historical: - Allergies: 10:33 Demerol; nj1 - PMHx: 10:33 Diabetes - IDDM; Diabetes - NIDDM; High Cholesterol; stroke; Prostate Cancer; heart nj1 attack; heat stroke; - PSHx: 10:33 Elbow; feet; neck; stomach; nj1 - Immunization history:: Last tetanus immunization: unknown. - Social history:: Smoking status: Patient reports the use of cigarette tobacco products, smokes one pack cigarettes per day. ROS: 10:37 Constitutional: Negative for fever, and chills. Eyes: Negative for injury, pain, ms3 redness, and discharge, Cardiovascular: Negative for chest pain, and palpitations. Respiratory: Negative for shortness of breath, cough, wheezing, and pleuritic chest pain, Abdomen/GI: Negative for abdominal pain, nausea, vomiting, diarrhea, and constipation, MS/Extremity: Negative for injury and deformity. 10:37 Skin: Positive for laceration(s). 10:37 All other systems are negative. Exam: 10:37 Constitutional: This is a well developed, well nourished patient who is awake, alert, ms3 and in no acute distress. Head/Face: Normocephalic, atraumatic. Chest/axilla: Normal chest wall appearance and motion. Nontender with no deformity. Cardiovascular: Regular rate and rhythm with a normal S1 and S2. No gallops, murmurs, or rubs. Normal PMI, no JVD. No pulse deficits. Respiratory: Lungs have equal breath sounds bilaterally, clear to auscultation and percussion. No rales, rhonchi or wheezes noted. No increased work of breathing, no retractions or nasal flaring. Abdomen/GI: Soft, non-tender, with normal bowel sounds. No distension or tympany. No guarding or rebound. No evidence of tenderness throughout. 10:37 Skin: Appearance: injury, laceration(s), the wound is approximately 2 cm(s), of the palmar surface left little finger. Vital Signs: 10:36 BP 154 / 94; Pulse 81; Resp 18; Pulse Ox 95% ; Weight 87.54 kg; Height 5 ft. 7 in. ; nj1 Pain 10/10; 11:44 BP 137 / 89; Pulse 66; Resp 17 S; Pulse Ox 92% on R/A; kc6 12:31 BP 135 / 88; Pulse 59; Resp 17 S; Pulse Ox 95% on R/A; kc6 10:36 Body Mass Index 30.23 (87.54 kg, 170.18 cm) nj1 10:36 Pain Scale: Adult nj1 Laceration: 12:54 Wound Repair of 4cm ( 1.6in ) subcutaneous laceration to left little finger. ms3 Irregularly shaped.. Skin/tissue flap noted.. Minimal bleeding noted.. Distal neuro/vascular/tendon intact. Anesthesia: Digital block administered with 5 mls of 1% lidocaine. Wound prep: Simple cleansing by me, Wound irrigation with saline by me, Wound margin revised, Wound explored. Skin closed with 13 5-0 Prolene using simple sutures and sterile technique. Dressed with Bacitracin. Patient tolerated well. MDM: 10:36 Patient medically screened. ms3 10:37 Differential diagnosis: finger fracture vs laceration. ms3 12:54 Data reviewed: vital signs, nurses notes, and as a result, I will discharge patient. I ms3 considered the following discharge prescriptions or medication management in the emergency department Medications were administered in the Emergency Department. See MAR. Independent interpretation of the following test(s) in the Emergency Department X-Ray: My interpretation is finger x-ray images reviewed and no fracture identified. Counseling: I had a detailed discussion with the patient and/or guardian regarding: the historical points, exam findings, and any diagnostic results supporting the discharge/admit diagnosis, radiology results, the need for outpatient follow up, to return to the emergency department if symptoms worsen or persist or if there are any questions or concerns that arise at home. Response to treatment: the patient's symptoms have markedly improved after treatment, and as a result, I will discharge patient. 04/07 10:36 Order name: Hand Left 3 View XRAY; Complete Time: 11:48 ms3 04/07 11:52 Order name: Dressing - Wound; Complete Time: 12:06 ms3 04/07 11:52 Order name: Gloves, Sterile: 8.0; Complete Time: 12:06 ms3 04/07 11:52 Order name: Prolene, Sutures: 5-0 PS-3; Complete Time: 12:06 ms3 04/07 11:52 Order name: Setup Suture Tray; Complete Time: 12:05 ms3 Administered Medications: 10:48 Drug: Diph,Pertus(Acel),Tetanus Vac (PF) IM 0.5 ml {Clinical Trial Data Manager: [employer]. Exp: kc6 04/23/2024. Lot #: [id number]. } Route: IM; Site: right deltoid; 11:23 Follow up: Response: No adverse reaction [facility] 12:06 Drug: Lidocaine Infiltration (1 %) 10 ml Volume: 20 ml; Route: Infiltration; [facility] 13:13 Drug: Bacitracin Topical Ointment (500 unit/g) 1 application Route: Topical; Site: left kc6 hand; Disposition Summary: 04/07/23 12:53 Discharge Ordered Location: Home ms3 Condition: Stable ms3 Diagnosis - Laceration without foreign body of left little finger without damage to nail ms3 Followup: ms3 - With: Ruben Parr MD - When: 2 - 3 days - Reason: Wound Recheck Discharge Instructions: - Discharge Summary Sheet ms3 - Laceration Care, Adult, [id number] ms3 Forms: - Medication Reconciliation Form ms3 - Thank You Letter ms3 - Antibiotic Education ms3 - Prescription Opioid Use ms3 Prescriptions: - Cephalexin 500 mg Oral Capsule - take 1 capsule by ORAL route every 6 hours for 7 days; 40 capsule; Refills: 0, ms3 Product Selection Permitted Signatures: Dispatcher [employer] Ej Douglas DO DO ms3 Ayaka Reis RN RN kc6 Estefany Hoover RN RN nj1
[2023-04-07 13:44] VITALS: BP 135/88; O2SAT 95
== END 2023-04-07 13:34 | disposition home or self-care (01) ==
LOC: ER 10:25
PROC: 0HQGXZZ Repair Left Hand Skin, External Approach (ICD-10-PCS; principal; 2023-04-07)
DX: S61.217A Laceration without foreign body of left little finger without damage to nail, initial encounter (principal); F17.210 Nicotine dependence, cigarettes, uncomplicated; Z23 Encounter for immunization; Z88.5 Allergy status to narcotic agent
CPT/HCPCS: 90471; 90714; 99284

== ENCOUNTER 2023-04-23 17:04 | Emergency (ER) | payer OTHER ==
--- OUTSIDE RECORDS SUMMARY | 2023-04-23 17:06 | XMS REPORT | Continuity of Care Document ---
:1960 Author Organization Formerly [facility] t Address [address] [place] [address] Care Team Providers Name Role Phone Unavailable [...] Clinicians Facility Department ID 2023-02-21 2023-02-21 Outpatient [facility] [id number] [place] 15:13:59 15:13:59 [address] [facility] [place] 2023-02-07 2023-02-07 Outpatient [facility] [id number] [place] 08:40:41 08:40:41 0327 [facility] [place] 2022-08-28 2022-08-28 Outpatient [facility] [id number] [place] 09:32:54 09:32:54 1015 [facility] [place] 2022-08-21 2022-08-21 Outpatient [facility] [id number] [place] 09:57:26 09:57:26 1008 [facility] [place] Results Test Description Test Time Test Comments Results Result Comments Source HIV 1/2 4TH GEN, RFLX CONF 2022-08-24 02:56:26 Test Item Value Reference Range Interpretation Comme nts HIV 1/2 4TH GEN, RFLX CONF (test code = 3514) NON-REACTIVE NON-REAC TIVE PSA, [id number] 01:55:46 Test Item Value Reference Range Interpretation [...] this result as nba l/abnormal. TSH, THIRD [id number] 01:55:46 Test Item Value Reference Range Interpretation Comments TSH, THIRD GENERATION (test code 1.090 UIU/ML 0.400-4.100 = 2821) COMPREHENSIVE METABOLIC [id number] 23:58:04 Test Item Value Reference Range Interpretation Comments GLUCOSE (test code = 119 MG/DL 70-99 H 2216) BUN (test code = 23 MG/DL 8-23 2207) CREATININE (test 0.89 MG/DL 0.80-1.40 code = 221) eGFR (2020 CKD-EPI) 96 ML/MIN/1.73 >60 (test code = 31387) CALC BUN/CREAT (test 26 RATIO 6-28 code = 2235) SODIUM (test code = 144 MEQ/L 605-657 8826) POTASSIUM (test code 4.6 MEQ/L 3.5-5.4 = [...] code = 26 U/L 5-50 2218) LIPID [id number] 23:58:04 Test Item Value Reference Range Interpretation [...] MOREINFORMATION , SEE CLIENT ANNOUNCE MENT AT [email or web address] [email or web address] RATIO LDL/HDL 1.90 RATIO <3.55 UNLESS O THERWISE (test code = 2238) INDICATED , ALL TESTING PERFORMED [facility], [facility] [address] [place] [id number] [place] [address] DIRECTOR: DEX RAI M.D. IA NUMBER [id number] CAP ACCREDITATION N O. [id number] HEMOGLOBIN [id number] 03:35:18 Test Item Value Reference Range Interpretation Comments HEMOGLOBIN A1c (test 7.4 % 4.2-5.6 H [employer]IC AN DIABETES code = 80111) ASSOCIATION IDELINES FOR HGB A1C: PREDIABETES/INC REASED [...] LABORATORY C ONSULTATION. CBC W/AUTO DIFF WITH [id number] 03:20:17 Test Item Value Reference Range Interpretation [...] RBCS 0.00 K/UL 0.00-0.11 (test code = 24371)
--- NOTE | 2023-04-23 18:06 | EDPHYS ---
Physician Documentation [facility] Name: Pedro Butts Age: 63 yrs Sex: Male : 1960 Arrival Date: 04/23/2023 Time: 17:04 Bed DX4 Private MD: James Huizar ED Physician Aden Saini HPI: 04/23 18:14 This 63 yrs old Male presents to ER via Ambulatory with complaints of Checking stitches.kb 18:14 The patient has sutures on the palmar aspect of distal phalanx of right index finger. kb Previous treatment: The patient was initially treated on April 07, 2023, the care was rendered at [facility]. Sutures/leah progress: The patient has no c/o's. The wound is well-healing with no redness, swelling, discharge, or dehiscence reported. The patient has not experienced similar symptoms in the past. The patient has not recently seen a physician. Historical: - Allergies: 17:19 Demerol; bp - PMHx: 17:19 Diabetes - IDDM; Diabetes - NIDDM; heart attack; heat stroke; High Cholesterol; bp Prostate Cancer; stroke; - PSHx: 17:19 Elbow; feet; neck; stomach; bp - Immunization history:: Adult Immunizations up to date. - Social history:: Smoking status: Patient denies any tobacco usage or history of. ROS: 18:12 Constitutional: Negative for fever, chills, and weight loss. kb 18:12 Skin: Positive for of the palmar aspect of distal phalanx of right index finger, sutures in place. 18:12 All other systems are negative. Exam: 18:12 Constitutional: This is a well developed, well nourished patient who is awake, alert, kb and in no acute distress. Head/Face: Normocephalic, atraumatic. ENT: Moist Mucous membranes Cardiovascular: Regular rate and rhythm with a normal S1 and S2. No gallops, murmurs, or rubs. No pulse deficits. Respiratory: Respirations even and unlabored. No increased work of breathing. Talking in full sentences MS/ Extremity: Pulses equal, no cyanosis. Neurovascular intact. Full, normal range of motion. Neuro: Awake and alert, GCS 15, oriented to person, place, time, and situation. Moves all extremities. Normal gait. 18:12 Skin: Wound recheck: Suture laceration closure: no evidence of dehiscence, no drainage, no erythema, no swelling, large scab noted, no redness or other signs of infection. . Vital Signs: 17:17 BP 150 / 97; Pulse 79; Resp 16; Temp 98; Pulse Ox 97% ; bp Procedures: 18:05 Suture/Staple removal: Removed 12 sutures, from palmar aspect of distal phalanx of kb right index finger, site appears well healed, Patient tolerated well. MDM: 17:13 Patient medically screened. kb 18:05 Data reviewed: vital signs, nurses notes. kb 18:14 Counseling: I had a detailed discussion with the patient and/or guardian regarding: the kb historical points, exam findings, and any diagnostic results supporting the discharge/admit diagnosis, the need for outpatient follow up, a family practitioner, to return to the emergency department if symptoms worsen or persist or if there are any questions or concerns that arise at home. Administered Medications: No medications were administered Disposition: 18:48 Co-signature as Attending Physician, Aden Saini MD I reviewed the patient's care rn provided by the Advanced Practice Provider and agree with the diagnosis and treatment plan. Disposition Summary: 04/23/23 18:06 Discharge Ordered Location: Home Condition: Stable kb Diagnosis - Encounter for removal of sutures kb Followup: kb - With: Emergency Department - When: As needed - Reason: Worsening of condition Followup: kb - With: Private Physician - When: 2 - 3 days - Reason: Recheck today's complaints, Continuance of care, Re-evaluation by your physician Followup: kb - With: Ruben Parr MD - When: 2 - 3 days - Reason: Recheck today's complaints Discharge Instructions: - Discharge Summary Sheet kb - Suture Removal, Care After kb Forms: - Medication Reconciliation Form kb - Thank You Letter kb - Antibiotic Education kb - Prescription Opioid Use kb Signatures: Nakia Painter FNP-C FNP-Aden Garcia MD MD rn Peltier, Brian RN RN bp
--- NOTE | 2023-04-23 18:06 | ER ---
Nurse's Notes [facility] Name: Pedro Butts Age: 63 yrs Sex: Male : 1960 Arrival Date: 04/23/2023 Time: 17:04 Bed DX4 Private MD: James Huizar Diagnosis: Encounter for removal of sutures Presentation: 04/23 17:17 Chief complaint: Patient states: STITCHES TO LEFT FIFTH FINGER SLOW HEALING, R/O bp INFECTION. PLACED 04/07. Coronavirus screen: At this time, the client does not indicate any symptoms associated with coronavirus-19. Ebola Screen: No symptoms or risks identified at this time. Initial Sepsis Screen: Does the patient meet any 2 criteria? No. Patient's initial sepsis screen is negative. Does the patient have a suspected source of infection? No. Patient's initial sepsis screen is negative. Risk Assessment: Do you want to hurt yourself or someone else? Patient reports no desire to harm self or others. Onset of symptoms is unknown. 17:17 Method Of Arrival: Ambulatory bp 17:17 Acuity: DAMIEN 4 bp Triage Assessment: 17:19 General: Appears in no apparent distress. comfortable, Behavior is calm, cooperative, bp appropriate for age. Pain: Denies pain. EENT: No deficits noted. Neuro: No deficits noted. Cardiovascular: No deficits noted. Respiratory: No deficits noted. GI: No signs and/or symptoms were reported involving the gastrointestinal system. : No signs and/or symptoms were reported regarding the genitourinary system. Derm: No deficits noted. Musculoskeletal: No deficits noted. Historical: - Allergies: 17:19 Demerol; bp - PMHx: 17:19 Diabetes - IDDM; Diabetes - NIDDM; heart attack; heat stroke; High Cholesterol; bp Prostate Cancer; stroke; - PSHx: 17:19 Elbow; feet; neck; stomach; bp - Immunization history:: Adult Immunizations up to date. - Social history:: Smoking status: Patient denies any tobacco usage or history of. Vital Signs: 17:17 BP 150 / 97; Pulse 79; Resp 16; Temp 98; Pulse Ox 97% ; bp ED Course: 17:07 Patient arrived in ED. im 17:08 James Huizar MD is Private Physician. im 17:13 Nakia Painter FNP-C [facility]. kb 17:13 Aden Saini MD is Attending Physician. kb 17:19 Triage completed. bp 17:19 Arm band placed on. bp 18:06 Ruben Parr MD is Referral Physician. kb Administered Medications: No medications were administered Outcome: 18:06 Discharge ordered by . kb 18:13 Patient left the ED. aa5 Signatures: Nakia Painter FNP-C FNP-Jane Nunez RN RN aa5 Pablito Miranda, RN RN bp Bisi Rhoades
[2023-04-23 18:34] VITALS: BP 150/97; TEMP 98; O2SAT 97
== END 2023-04-23 18:13 | disposition home or self-care (01) ==
LOC: ER 17:04
DX: Z48.02 Encounter for removal of sutures (principal)
CPT/HCPCS: 99281

== ENCOUNTER 2024-01-14 19:00 | Observation (INO) | payer OTHER ==
--- OUTSIDE RECORDS SUMMARY | 2024-01-14 19:03 | XMS REPORT | Continuity of Care Document ---
Author Name Unknown Address [address] [facility] [address] [place] [id number] [facility] thconnect Address [address] [facility] [address] [place] [address] Care Team Providers Care Plywood Layup Line Core Feeder Name Role Phone QING ROE Attending Clinician Unava ilcory Encounters Start Date/Time End Date/Time Encounter Type Admission Type Attending Clinicians Care Facility Care Department Encounter ID Source 2023-11-01 11:00:00 2023-11-01 11:00:00 Outpatient [facility] [id number] [facility] 2023-07-20 10:32:29 2023-07-20 10:32:29 Outpatient SFA SFA [id number] Alcides F [place]otah 2023-06-10 11:01:00 2023-06-10 11:01:00 Outpatient [facility] [id number] [facility] 2023-02-21 15:13:59 2023-02-21 15:13:59 Outpatient SFA SFA [id number] Alcides Wood [place] 2023-02-07 08:40:41 2023-02-07 08:40:41 Outpatient SFA SFA [id number] Alcides Israel [place] 2022-08-28 09:32:54 2022-08-28 09:32:54 Outpatient SFA SFA [id number] Alcides F [place] 2022-08-21 09:57:26 2022-08-21 09:57:26 Outpatient SFA SFA [id number] Alcides Israel [place] Results Test Description Test Time Test Comments Results Result Co mments Source HEMOGLOBIN [id number] 03:11:04* Test Item Value Reference Range Interpretation Comme [facility] HEMOGLOBIN A1c (test code = 33406) 6.5 % 4.2-5.6 H [employer] GUIDELINES FOR HGB A1C: PREDIABETES/INCREASED RISK . . . . . . . 5.7-6.4% DIAGNOSIS OF DIABETES . . . . . . . . . >=6.5% WITH CONFIRMATION OR APPROPRIATE SYMPTOMS NOTE: ASSAY MAY BE AFFECTED BY HEMOGLOBINOPATHIES (SICKLE CELL ANEMIA, S-C DISEASE, OTHERS) OR ARTIFICIALLY LOWERED BY DECREASED RED CELL SURVIVAL (HEMOLYTIC ANEMIAS, BLOOD LOSS, ETC.). CONSIDER ALTERNATE TESTING OR LABORATORY CONSULTATION. HIV 1/2 4TH GEN, RFLX [id number] 02:56:26* Test Item Value Reference Range Interpretation Comme [facility] HIV 1/2 4TH GEN, RFLX CONF ( test code = 3514) NON-REACTIVE NON-REACTIVE TSH, THIRD [id number] 01:55:46* Test Item Value Reference Range Interpretation Comme [facility] TSH, THIRD GENERATION (test code = 2821) 1.090 UIU/ML 0.400-4.100 PSA, [id number] 01:55:46* Test Item Value Reference Range Interpretation Comme [facility] PSA, TOTAL (test code = 2606) <0.02 NG/ML See_Comment NOTE: Methodolog y is Crow Miguelito Electrochemiluminescence Immunoassay traceable to WHO reference standard 96/760. [Automated message] The system which generated this result transmitted reference range: <=4.00. The reference range was not used to interpret this result as normal/abnormal. COMPREHENSIVE METABOLIC [id number] 23:58:04* Test Item Value Reference Range Interpretation Comme nts GLUCOSE (test code = 2217) 119 MG/DL 70-99 H BUN (test code = 2208) 23 MG/DL 8-23 CREATININE (test code = 2214) 0.89 MG/DL 0.80-1.40 eGFR (2020 CKD-EPI) (test code = 82317) 96 ML/MIN/1.73 >60 CALC BUN/CREAT (test code = 2235) 26 RATIO 6-28 SODIUM (test code = 223) 144 MEQ/L 133-146 POTASSIUM (test code = 2228) 4.6 MEQ/L 3.5-5.4 CHLORIDE (test code = 2215) 106 MEQ/L 95-107 CARBON DIOXIDE (test code = 2206) 24 MEQ/L 19-31 CALCIUM (test code = 220) 9.4 MG/DL 8.5-10.5 PROTEIN, TOTAL (test code = 2229) 6.9 G/DL 6.1-8.3 ALBUMIN (test code = 2201) 4.8 G/DL 3.5-5.2 CALC GLOBULIN (test code = 2240) 2.1 G/DL 1.9-3.7 CALC A/G RATIO (test code = 2234) 2.3 RATIO 1.0-2.6 BILIRUBIN, TOTAL (test code = 220) 0.6 MG/DL See_Comment [Automated me ssage] The system which generated this result transmitted reference range: <=1.2. The reference range was not used to interpret this result as normal/abnormal. ALKALINE PHOSPHATASE (test code = 2203) 100 U/L 40-123 AST (test code = 221) 17 U/L 9-50 ALT (test code = 2219) 26 U/L 5-50 LIPID [id number] 23:58:04* Test Item Value Reference Range Interpretation Comme nts CHOLESTEROL (test code = 2210) 110 MG/DL <200 TRIGLYCERIDES (test code = 2232) 146 MG/DL <150 HDL CHOLESTEROL (test code = 2220) 30 MG/DL >39 L CALC LDL CHOL (test code = 223) 57 MG/DL <100 NOTE: CALCULATED LDL IS BASED ON CRYSTAL-CRAIG METHOD WHICHINCLUDES ADJUSTABLE TRIGLYCERIDE:VLDL CHOLESTEROL RATIO.THIS FACTOR VARIES BY MEASURED TRIGLYCERIDE AND NON-HDLCHOLESTEROL CONCENTRATIONS WITH INCREASED CALCULATED LDL SEENIN HIGHER TRIGLYCERIDE OR LOWER NON-HDL SPECIMENS. FOR MOREINFORMATION, SEE CLIENT ANNOUNCEMENT AT [email or web address] RISK RATIO LDL/HDL (test code = 2238) 1.90 RATIO <3.55 UNLESS OTHERW ISE INDICATED, ALL TESTING PERFORMED [facility] [address] [place] [id number] CLEANING STAFF SUPERVISOR: DEX RAI M.D. CLIA NUMBER [id number] [facility] [place]. [id number] HEMOGLOBIN [id number] 03:35:18* Test Item Value Reference Range Interpretation Comme nts HEMOGLOBIN A1c (test code = 68041) 7.4 % 4.2-5.6 H [employer] GUIDELINES FOR HGB A1C: PREDIABETES/INCREASED RISK . . . . . . . 5.7-6.4% DIAGNOSIS OF DIABETES . . . . . . . . . >=6.5% WITH CONFIRMATION OR APPROPRIATE SYMPTOMS NOTE: ASSAY MAY BE AFFECTED BY HEMOGLOBINOPATHIES (SICKLE CELL ANEMIA, S-C DISEASE, OTHERS) OR ARTIFICIALLY LOWERED BY DECREASED RED CELL SURVIVAL (HEMOLYTIC ANEMIAS, BLOOD LOSS, ETC.). CONSIDER ALTERNATE TESTING OR LABORATORY CONSULTATION. CBC W/AUTO DIFF WITH [id number] 03:20:17* Test Item Value Reference Range Interpretation Comme nts WBC (test code = 1001) 11.1 K/UL 3.5-11.0 H RBC (test code = 1002) 5.31 M/UL 4.50-6.10 HEMOGLOBIN (test code = 1003) 15.0 G/DL 13.5-17.0 HEMATOCRIT (test code = 1004) 47.1 % 40.0-51.0 MCV (test code = 1005) 88.7 fL 80.0-99.0 MCH (test code = 1006) 28.2 PG 25.0-33.0 MCHC (test code = 1007) 31.8 G/DL 31.0-36.0 RDW (test code = 1038) 12.3 % 11.5-15.0 NEUTROPHILS (test code = 1008) 66.2 % LYMPHOCYTES (test code = 1010) 20.3 % MONOCYTES (test code = 1011) 7.9 % EOSINOPHILS (test code = 1012) 4.6 % BASOPHILS (test code = 1013) 0.6 % IMMATURE GRANULOCYTES (test code = 1036) 0.4 % NUCLEATED RBCS (test code = 1065) 0.0 /100 WBC'S See_Comment [Automated [employer]] The system which generated this result transmitted reference range: 0.0. The reference range was not used to interpret this result as normal/abnormal. PLATELET COUNT (test code = 1015) 250 K/UL 130-400 ABSOLUTE NEUTROPHILS (test code = 1066) 7.32 K/UL 1.50-7.50 ABSOLUTE LYMPHOCYTES (test code = 1067) 2.25 K/UL 1.00-4.00 ABSOLUTE MONOCYTES (test code = 1068) 0.87 K/UL 0.20-1.00 ABSOLUTE EOSINOPHILS (test code = 1040) 0.51 K/UL 0.00-0.50 H ABSOLUTE BASOPHILS (test code = 1069) 0.07 K/UL 0.00-0.20 ABS IMMATURE GRANULOCYTES (test code = 1020) 0.04 K/UL 0.00-0.10 ABS NUCLEATED RBCS (test code = 94936) 0.00 K/UL 0.00-0.11
[2024-01-14 19:27] LABS: Absolute Basophils 0.1 K/uL (0-0.5); Absolute Eosinophils 0.4 K/uL (0-0.5); Absolute Lymphocytes (CBC) 3.4 K/uL (0.7-4.9); Absolute Monocytes 0.6 K/uL (0.1-1.3); Absolute Neutrophil 4.3 K/uL (1.8-8.0); Eosinophils % 4.2 % (0-4.4); Hematocrit 44.9 % (39.6-49.0); Hemoglobin 15.4 g/dL (13.6-17.9); Lymphocytes % 38.8 % (15.3-44.8); MCH 30.7 pg (27.0-35.0); MCHC 34.3 g/dL (32.0-36.0); MCV 89.7 fL (80-100); MPV 7.7 fL (7.6-11.3); Monocytes % 6.8 % (3.3-12.3); Neutrophils % 49.2 % (41.7-73.7); Nucleated Red Blood Cells % 0.2 % (0-0); Platelets 203 thou/uL (152-406); RBC Red Blood Cell Count 5.01 M/uL (4.33-5.43); Red Cell Distribution Width 13.2 % (12.1-15.2)
[2024-01-14] MEDS ORDERED: MORPHINE 4 MG/ML SYR ONE (19:39)
[2024-01-14] MEDS ORDERED: ONDANSETRON 4 MG/2 ML VIAL ONE (19:39)
[2024-01-14 20:10] LABS: Anion Gap 8.6 mEq/L (5.0-15.0); Potassium 3.6 mEq/L (3.5-5.1)
--- NOTE | 2024-01-14 20:16 | RAD REPORT ---
EXAM DESCRIPTION: RAD - Chest Single View - 01/14/2024 8:11 pm CLINICAL HISTORY: CHEST PAIN COMPARISON: Chest Single View dated 07/28/2022; Chest Pa And Lat (2 Views) dated 09/17/2019; Abdomen 1 View (KUB) dated 09/17/2019; Abdomen 1 View (KUB) dated 11/02/2018 FINDINGS: Lines: None. Lungs: No evidence of edema or pneumonia. Pleural: No significant pleural effusions or pneumothorax. Cardiac: The heart size is within normal limits. Mediastinum: Within normal limits. Bones: No acute fractures. ACDF in the cervical spine . Other: None IMPRESSION: No acute cardiopulmonary disease.
[2024-01-14 21:29] LABS: Troponin High Sensitivity 7.5 pg/mL (<58.9)
--- NOTE | 2024-01-14 21:50 | ER ---
Nurse's Notes [facility] Name: Pedro Butts Age: 63 yrs Sex: Male : 1960 Arrival Date: 01/14/2024 Time: 19:00 Bed 12 Private MD: Diagnosis: Chest pain, unspecified Presentation: 01/13 19:16 Chief complaint: Patient states: I am having chest pain that started 2 hours ago. It jb4 does not radiate. Coronavirus screen: At this time, the client does not indicate any symptoms associated with coronavirus-19. Ebola Screen: No symptoms or risks identified at this time. Initial Sepsis Screen: Does the patient meet any 2 criteria? No. Patient's initial sepsis screen is negative. Does the patient have a suspected source of infection? No. Patient's initial sepsis screen is negative. Risk Assessment: Do you want to hurt yourself or someone else? Patient reports no desire to harm self or others. Onset of symptoms was January 14, 2024. Transition of care: patient was not received from another setting of care. 19:16 Method Of Arrival: Ambulatory jb4 19:16 Acuity: DAMIEN 3 jb4 Historical: - Allergies: 19:19 Demerol; jb4 - PMHx: 19:19 Diabetes - IDDM; heart attack; High Cholesterol; Prostate Cancer; heat stroke; stroke; jb4 - PSHx: 19:19 Elbow; feet; neck; stomach; jb4 - Immunization history:: Adult Immunizations up to date. - Social history:: Smoking status: Patient reports the use of cigarette tobacco products, smokes one pack cigarettes per day. Patient uses alcohol, occasionally. Screenin:21 [facility] ED Fall Risk Assessment (Adult) History of falling in the last 3 months, mb9 including since admission No falls in past 3 months (0 pts) Confusion or Disorientation No (0 pts) Intoxicated or Sedated No (0 pts) Impaired Gait No (0 pts) Mobility Assist Device Used No (0 pt) Altered Elimination No (0 pt) Score/Fall Risk Level 0 - 2 = Low Risk Oriented to surroundings, Maintained a safe environment, Educated pt \T\ family on fall prevention, incl call for assistance when getting out of bed. Abuse screen: Denies threats or abuse. Nutritional screening: No deficits noted. Tuberculosis screening: No symptoms or risk factors identified. Assessment: 19:33 General: Appears in no apparent distress. Behavior is calm, cooperative. Pain: mb9 Complains of pain in chest Pain does not radiate. Pain began suddenly. Neuro: Conn Agitation-Sedation Scale (RASS): 0 - Alert and Calm Level of Consciousness is awake, alert, obeys commands, Oriented to person, place, time, situation, Appropriate for age. Cardiovascular: Reports chest pain, Heart tones S1 S2 present Patient's skin is warm and dry. Respiratory: Airway is patent Respiratory effort is even, unlabored, Respiratory pattern is regular, symmetrical. GI: Abdomen is round non-distended. : No signs and/or symptoms were reported regarding the genitourinary system. EENT: No signs and/or symptoms were reported regarding the EENT system. Derm: Skin is pink, warm \T\ dry. Musculoskeletal: Range of motion: intact in all extremities. 21:24 Reassessment: Patient and/or family updated on plan of care and expected duration. Pain mb9 level reassessed. Patient is alert, oriented x 3, equal unlabored respirations, skin warm/dry/pink. Patient states feeling better. Patient states symptoms have improved. 22:30 Reassessment: Patient appears in no apparent distress at this time. Patient and/or rv family updated on plan of care and expected duration. Pain level reassessed. Patient is alert, oriented x 3, equal unlabored respirations, skin warm/dry/pink. 23:56 Reassessment: Patient appears in no apparent distress at this time. Patient and/or rv family updated on plan of care and expected duration. Pain level reassessed. Patient is alert, oriented x 3, equal unlabored respirations, skin warm/dry/pink. Vital Signs: 19:16 BP 155 / 99; Pulse 77; Resp 16; Temp 98.1(O); Pulse Ox 99% on R/A; Weight 83.01 kg; jb4 Height 5 ft. 7 in. ; Pain 6/10; 20:21 BP 140 / 70; Pulse 63; Resp 18; Pulse Ox 100% on R/A; mb9 21:24 BP 131 / 86; Pulse 61; Resp 18; Pulse Ox 100% on R/A; mb9 23:56 BP 140 / 90; Pulse 73; Resp 20; Pulse Ox 98% on R/A; rv 19:16 Body Mass Index 28.66 (83.01 kg, 170.18 cm) jb4 19:16 Pain Scale: Adult jb4 ED Course: 19:02 Patient arrived in ED. kj1 19:09 Zacarias Alvarado MD is Attending Physician. ec2 19:19 Triage completed. jb4 19:19 Arm band placed on right wrist. jb4 19:23 Initial lab(s) drawn, by me, sent to lab. EKG done, by ED staff. Inserted saline lock: [id number] 20 gauge in right antecubital area, using aseptic technique. Blood collected. 19:34 No provider procedures requiring assistance completed. Patient maintains SpO2 mb9 saturation greater than 95% on room air. 19:43 Lilo Fragoso, WILLIAM is Primary Nurse. mb9 20:12 XRAY Chest (1 view) In Process Unspecified. EDMS 20:21 Placed in gown. Bed in low position. Call light in reach. Side rails up X 1. Client mb9 placed on continuous cardiac and pulse oximetry monitoring. NIBP monitoring applied. threat monitoring analyst on. 21:49 Ethan Blanchard is Hospitalizing Provider. ec2 22:00 Report given to WILLIAM Brown. mb9 23:57 Patient transferred, IV remains in place. rv Administered Medications: 19:40 Drug: Ondansetron IVP 4 mg IVP once; over 2 minutes Route: IVP; Site: right antecubital;mb9 21:51 Follow up: Response: No adverse reaction mb9 19:44 Drug: morphine IVP or IV 4 mg IVP once over 4 mins Route: IVP; Infused Over: 4 mins; mb9 Site: right antecubital; 21:51 Follow up: Response: No adverse reaction mb9 Medication: 20:22 VIS not applicable for this client. mb9 Outcome: 21:49 Decision to Hospitalize by Provider. ec2 23:57 Admitted to Tele accompanied by nurse, via wheelchair, room 428, with chart, Report rv called to WILLIAM Hernandez 23:57 Condition: stable 23:57 Discharge instructions given to patient, Instructed on the need for admit, Demonstrated understanding of instructions, 23:57 Patient left the ED. rv Signatures: [facility] Basim Edmond, WILLIAM RN jb4 Vaughn Lock RN RN rv Pat Painter kj1 Lilo Fragoso RN RN mb9 Zacarias Alvarado MD MD ec2 Luis A Jane jg11
--- NOTE | 2024-01-14 21:50 | EDPHYS ---
Physician Documentation [facility] Name: Pedro Butts Age: 63 yrs Sex: Male : 1960 Arrival Date: 01/14/2024 Time: 19:00 Bed 12 Private MD: ED Physician Zacarias Alvarado HPI: 01/13 19:15 This 63 yrs old Male presents to ER via Unassigned with complaints of Chest ec2 Pain. 19:15 Patient arrives today for left-sided chest pain without radiating symptoms. Onset about ec2 2 hours ago. Patient reports no specific alleviating or exacerbating factors, did not medicate or intervene for the symptoms. Patient reports no shortness of breath. Reports history of ACS,. History of stroke. Patient reports history of diabetes as well as hyperlipidemia, no blood thinner use.. Historical: - Allergies: 19:19 Demerol; jb4 - PMHx: 19:19 Diabetes - IDDM; heart attack; High Cholesterol; Prostate Cancer; heat stroke; stroke; jb4 - PSHx: 19:19 Elbow; feet; neck; stomach; jb4 - Immunization history:: Adult Immunizations up to date. - Social history:: Smoking status: Patient reports the use of cigarette tobacco products, smokes one pack cigarettes per day. Patient uses alcohol, occasionally. ROS: 19:15 Constitutional: as per hpi ec2 Exam: 19:15 Constitutional: GEN: NAD Head: atraumatic Eyes: EOMI Ears: External ears are ec2 normal. CV: regular rate LUNGS: no respiratory distress ABD: non-distended SKIN: no evidence of rashes MSK: no evidence of trauma NEURO: moves all extremities equally Vital Signs: 19:16 BP 155 / 99; Pulse 77; Resp 16; Temp 98.1(O); Pulse Ox 99% on R/A; Weight 83.01 kg; jb4 Height 5 ft. 7 in. ; Pain 6/10; 20:21 BP 140 / 70; Pulse 63; Resp 18; Pulse Ox 100% on R/A; mb9 21:24 BP 131 / 86; Pulse 61; Resp 18; Pulse Ox 100% on R/A; mb9 23:56 BP 140 / 90; Pulse 73; Resp 20; Pulse Ox 98% on R/A; rv 19:16 Body Mass Index 28.66 (83.01 kg, 170.18 cm) jb4 19:16 Pain Scale: Adult jb4 MDM: 19:09 Patient medically screened. ec2 19:15 Data reviewed: vital signs. ED course: Patient arrives today for evaluation of chest ec2 pain. Examination remarkable for well-appearing nontoxic in which was otherwise in no acute distress. EKG obtained, independently reviewed and interpreted by me, shows normal sinus rhythm, rate of 62, no acute ST segment elevations, nonconcerning intervals. Will obtain cardiac workup, chest x-ray and treat the patient's pain. Evaluate for ACS, anemia, electrolyte disturbances. Evaluated for arrhythmia as well. . 19:58 ED course: CBC is reassuring.. ec2 20:25 ED course: Metabolic profile shows appropriate electrolytes and renal function, chest ec2 x-ray shows no acute intrathoracic process. . 21:38 ED course: Metabolic profile is reassuring, BNP within normal ranges, troponin within ec2 normal ranges. . 21:49 ED course: Patient ultimately high risk individual with previous ACS with persistent ec2 chest pain, will admit for cardiac evaluation. Discussed with hospice, pending admission.. 01/13 19:15 Order name: Basic Metabolic Panel; Complete Time: 21:38 ec2 01/13 19:15 Order name: CBC with Diff; Complete Time: 19:58 ec2 01/13 19:15 Order name: NT PRO-BNP; Complete Time: 21:38 ec2 01/13 19:15 Order name: Troponin HS; Complete Time: 21:38 ec2 01/13 22:55 Order name: Lipid Profile EDMS 01/13 22:55 Order name: Lipid Profile EDMS 01/13 22:55 Order name: Troponin High Sensitivity EDMS 01/13 22:57 Order name: Troponin High Sensitivity EDMS 01/13 22:57 Order name: Troponin High Sensitivity EDMS 01/13 22:57 Order name: Troponin High Sensitivity EDMS / 19:15 Order name: XRAY Chest (1 view); Complete Time: 20:25 ec2 01/13 22:55 Order name: Echo with Doppler EDMS 01/13 22:55 Order name: Echo with Doppler EDMS 01/13 19:15 Order name: EKG; Complete Time: 19:15 ec2 01/13 19:15 Order name: Cardiac monitoring; Complete Time: 19:33 ec2 01/13 19:15 Order name: EKG - Nurse/Tech; Complete Time: :33 ec2 01/13 19:15 Order name: IV Saline Lock; Complete Time: :33 ec2 01/13 19:15 Order name: Labs collected and sent; Complete Time: :33 ec2 01/13 19:15 Order name: O2 Per Protocol; Complete Time: :33 ec2 01/13 19:15 Order name: O2 Sat Monitoring; Complete Time: :33 ec2 Administered Medications: 19:40 Drug: Ondansetron IVP 4 mg IVP once; over 2 minutes Route: IVP; Site: right antecubital;mb9 21:51 Follow up: Response: No adverse reaction mb9 19:44 Drug: morphine IVP or IV 4 mg IVP once over 4 mins Route: IVP; Infused Over: 4 mins; mb9 Site: right antecubital; 21:51 Follow up: Response: No adverse reaction mb9 Disposition Summary: 01/14/24 21:49 Hospitalization Ordered Notes: Hospitalization Status: Inpatient Admission ec2 Provider: Ethan Blanchard ec2 Location: Telemetry/MedSurg (Inpatient) ec2 Condition: Stable ec2 Problem: new ec2 Symptoms: have improved ec2 Bed/Room Type: Standard ec2 Room Assignment: 428(01/14/24 23:10) cg Diagnosis - Chest pain, unspecified ec2 Forms: - Medication Reconciliation Form ec2 - SBAR form ec2 - Leadership Thank You Letter ec2 Signatures: Dispatcher [employer] Elizabeth Rascon RN RN cg Bryson, James, RN RN jb4 Lilo Fragoso RN RN mb9 Zacarias Alvarado MD MD ec2 Corrections: (The following items were deleted from the chart) 22:56 22:55 Troponin High Sensitivity ordered. EDMS EDMS 22:56 22:55 Troponin High Sensitivity ordered. EDRI EDMS 23:02 21:49 ec2 cg 23:10 23:02 212 cg cg
[2024-01-14] MEDS ORDERED: NITROGLYCERIN 0.4 MG/TAB SL PRN (22:49)
--- NOTE | 2024-01-14 23:02 | P.HP ---
Certification for Inpatient Patient admitted to: Observation With expected LOS: <2 Midnights Practitioner: I am a practitioner with admitting privileges, knowledge of patient current condition, hospital course, and medical plan of care. Services: Services provided to patient in accordance with Admission requirements found in Title 42 Section 412.3 of the Code of Federal Regulations Patient History Date of Service: 01/14/24 Reason for admission: Chest pain History of Present Illness: 63-year-old gentleman who is a known smoker, DM, prior history of TIA presented to the emergency department with a complaint of sudden onset chest pain which occurred while he was cutting grass. Patient described left-sided sharp chest pain, maximum intensity 8/10, intermittent, 2 episodes, no known relieving or aggravating factors. Patient was chest pain-free but was complaining of chest pressure during my examination. No associated palpitation or shortness of breath. No associated diaphoresis or nausea. In the ER, initial troponin was negative, EKG demonstrated sinus rhythm, no ST-T changes, chest x-ray unremarkable and shows no acute disease. Other blood work unremarkable. Talisha herman is placed under observation for ACS rule out. Allergies meperidine [From Demerol] Allergy (Mild, Verified 05/25/18 20:28) Itching/Hives/Rash Home Medications: Aspirin [Aspirin EC 81 MG] 162 mg PO DAILY #30 tablet. 05/26/18 Atorvastatin Calcium [Lipitor] 40 mg PO BEDTIME #30 tab 05/26/18 Ezetimibe [Zetia*] 10 mg PO DAILY #30 tab 05/26/18 - Past Medical/Surgical History Diabetic: No -: heat stroke -: prostate cancer -: hyperlipidemia -: R arm sx -: bunion repair bilateral big toes -: hernia repair - Family History Father -: Heart disease Notes: young of massive heart attack Mother -: Hypertension, Diabetes Notes: [place] Brother -: Diabetes, Cancer Notes: colon cancer Sister -: Diabetes - Social History Smoking Status: Current every day smoker Alcohol use: No CD- Drugs: No Caffeine use: Yes Review of Systems Other: Except as documented, all other systems reviewed and negative. Physical Examination - Physical Exam General: Alert, In no apparent distress, Oriented x3 HEENT: Normocephalic, Mucous membr. moist/pink, Sclerae nonicteric Neck: Supple, JVD not distended Respiratory: Clear to auscultation bilaterally, Normal air movement Cardiovascular: No edema, Regular rate/rhythm, Normal S1 S2 Gastrointestinal: Normal bowel sounds, Soft and benign, Non-distended, No tenderness Musculoskeletal: No swelling Integumentary: No rashes, No cyanosis Neurological: Normal strength at 5/5 x4 extr, Cranial nerves 3-12 intact Lymphatics: No axilla or inguinal lymphadenopathy - Studies Laboratory Data (last 24 hrs) 01/14/24 01/14/24 19:19 19:19 WBC 8.70 Hgb 15.4 Hct 44.9 Plt Count 203 Sodium 139 Potassium 3.6 BUN 19 H Creatinine 0.97 Glucose 123 H Assessment and Plan - Problems (Diagnosis) (1) Chest pain Current Visit: No Status: Acute (2) Hyperlipidemia Onset Date: 05/26/18 Current Visit: No Status: Acute (3) Tobacco dependence syndrome Current Visit: No Status: Acute (4) Type 2 diabetes mellitus Current Visit: Yes Status: Acute - Plan Place patient under observation Telemetry Continue to trend troponin Stop aspirin, continue home dose Lipitor Patient is bradycardic so cannot prescribe beta-jocelynn at this time. Obtain echocardiogram Insulin sliding scale for glucose management. Hold home dose metformin. I spent about 5 minutes providing tobacco cessation counseling. - Advance Directives Does patient have a Living Will: No Does patient have a Durable POA for Healthcare: Yes
[2024-01-15 00:42] VITALS: BMI 28.8
[2024-01-15] MEDS: NICOTINE 21 MG/PAT TD ONE (01:23)
[2024-01-15] MEDS: NICOTINE 21 MG/PAT TD SCH (01:26)
[2024-01-15 07:26] LABS: Troponin High Sensitivity 8.4 pg/mL (<58.9)
[2024-01-15] MEDS: INSULIN REGULAR (HUMAN) 100 UNIT/ML SQ SCH (07:30)
[2024-01-15] MEDS: INFLUENZA VACCINE (for 6+ mo) 0.5 ML DOSE IMVAC ONE (08:00)
[2024-01-15] MEDS: ASPIRIN EC 81 MG TAB PO SCH (08:42)
[2024-01-15] MEDS: ENOXAPARIN 40 MG/0.4 ML SQ SCH (08:42)
--- NOTE | 2024-01-15 14:46 | P.PN ---
Date of Service: 01/15/24 Subjective: Denies further episodes of chest pain No acute events overnight ROS: 10 point ROS as noted above, otherwise negative Physical exam GEN: Alert, oriented, NAD HEENT: Normal conjunctiva, sclera anicteric CV: Regular rate and rhythm, no edema Pulm: Nonlabored respirations on room air ABD: Soft, nontender, nondistended MSK: No joint tenderness Integumentary: No rashes Neuro: Normal speech, normal affect Vitals reviewed Problem List Chest pain rule out ACS Hyperlipidemia Tobacco dependence syndrome Diabetes mellitus type 2 History of TIA/CVA Plan Chest pain rule out ACS Multiple risk factors for CAD Exertional chest pain Troponins trended flat Monitor on telemetry, cardiology consult in place Impaired midnight anticipate stress test versus heart catheterization tomorrow Continue aspirin, statin Hyperlipidemia Continue statin Tobacco dependence syndrome Counseled on need for cessation Diabetes mellitus type 2 ACHS Accu-Chek, sliding scale insulin History of TIA/CVA Continue aspirin, statin VTE: Lovenox Code: Full Dispo: 24 to 48 hours Time Spent Managing Pts Care (In Minutes): 35 <Trav Holloway - Last Filed: 01/15/24 14:44> Patient seen and examined on rounds this morning. Plan of care discussed with CABLE TELEVISION LINE TECHNICIAN Jewel. Agree with plan as noted above with the following additio ns/corrections: chest pain concerning for unstable angina. EKG without ST-T wave changes. Trop negative x4 significant risk factors - smoking, prior ?NSTEMI and TIA, father of [place] at age 57 currently without pain/pressure cardiology consulted - stress vs cath tomorrow <Terry Saini - Last Filed: 01/15/24 15:52>
[2024-01-16 04:22] LABS: Hematocrit 45.1 % (39.6-49.0); Hemoglobin 15.5 g/dL (13.6-17.9); MCH 30.5 pg (27.0-35.0); MCHC 34.4 g/dL (32.0-36.0); MCV 88.9 fL (80-100); MPV 8.3 fL (7.6-11.3); Platelets 198 thou/uL (152-406); RBC Red Blood Cell Count 5.07 M/uL (4.33-5.43); Red Cell Distribution Width 13.5 % (12.1-15.2)
[2024-01-16 04:35] LABS: Anion Gap 9.9 mEq/L (5.0-15.0); Potassium 3.9 mEq/L (3.5-5.1)
--- NOTE | 2024-01-16 09:48 | P.PN ---
Date of Service: 01/16/24 Subjective: Denies further episodes of chest pain No acute events overnight Plan for heart cath today ROS: 10 point ROS as noted above, otherwise negative Physical exam GEN: Alert, oriented, NAD HEENT: Normal conjunctiva, sclera anicteric CV: Regular rate and rhythm, no edema Pulm: Nonlabored respirations on room air ABD: Soft, nontender, nondistended MSK: No joint tenderness Integumentary: No rashes Neuro: Normal speech, normal affect Vitals reviewed Problem List Chest pain rule out ACS Hyperlipidemia Tobacco dependence syndrome Diabetes mellitus type 2 History of TIA/CVA Plan Chest pain rule out ACS Multiple risk factors for CAD Exertional chest pain Troponins trended flat Monitor on telemetry, cardiology consult in place Plan for heart catheterization today 01/15 Continue aspirin, statin Hyperlipidemia Continue statin Tobacco dependence syndrome Counseled on need for cessation Diabetes mellitus type 2 ACHS Accu-Chek, sliding scale insulin History of TIA/CVA Continue aspirin, statin VTE: Lovenox Code: Full Dispo: 24 to 48 hours Time Spent Managing Pts Care (In Minutes): 35
--- NOTE | 2024-01-16 12:46 | ECHO ---
HEIGHT: 5 ft 7 in WEIGHT: 184 lb 0 oz DATE OF STUDY: 01/16/[address]: Ethan Blanchard MD 2-DIMENSIONAL: YES M.MODE: YES DOPPLER: YES COLOR FLOW: YES TDS: NO PORTABLE: YES DEFINITY: NO BUBBLE STUDY: NO DIAGNOSIS: CHEST PAIN CARDIAC HISTORY: CATHERIZATION: NO SURGERY: NO PROSTHETIC VALVE: NO PACEMAKER: NO MEASUREMENTS (cm) DIASTOLIC (NORMALS) SYSTOLIC (NORMALS) IVSd 1.0 (0.6-1.2) LA Diam 3.0 (1.9-4.0) LVEF 45-50% LVIDd 3.8 (3.5-5.7) LVIDs 2.4 (2.0-3.5) %FS 38% LVPWd 1.0 (0.6-1.2) Ao Diam 2.6 (2.0-3.7) 2 DIMENSIONAL ASSESSMENT: RIGHT ATRIUM: NORMAL LEFT ATRIUM: NORMAL RIGHT VENTRICLE: NORMAL LEFT VENTRICLE: NORMAL TRICUSPID VALVE: TRACE TRICUSPID REGURGITATION MITRAL VALVE: NORMAL PULMONIC VALVE: NORMAL AORTIC VALVE: NORMAL PERICARDIAL EFFUSION: NONE AORTIC ROOT: NORMAL LEFT VENTRICULAR WALL MOTION: BASAL TO MID INFERIOR WALL HYPOKINESIS. DOPPLER/COLOR FLOW: GRADE I DIASTOLIC DYSFUNCTION. COMMENTS: 1. BORDERLINE LOW NORMAL LEFT VENTRICULAR SYSTOLIC FUNCITON. LEFT VENTRICULAR EJECTION FRACTION 45-50%. MILD BASAL TO MID INFERIOR WALL HYPOKINESIS. 2. GRADE I DIASTOLIC DYSFUNCTION. 3. NORMAL FILLING PRESSURES. TECHNOLOGIST: Kamar CAO
[2024-01-16] MEDS ORDERED: TICAGRELOR 90 MG TABLET PO ONE (14:53)
[2024-01-16] MEDS ORDERED: NA CHLORIDE 0.9% 500 ML ONE (15:08)
[2024-01-16] MEDS ORDERED: HEPA 1000U/500MLS 2,000 UNIT/1,000 ML BAG IV ONE (15:53)
[2024-01-16] MEDS ORDERED: LIDOCAINE 1% 20 ML MDV ONE (15:54)
[2024-01-16] MEDS ORDERED: FENTANYL CITR 100 MCG/2 ML ONE (15:54)
[2024-01-16] MEDS ORDERED: VERAPAMIL HCL 10 MG/4 ML VIAL IV ONE (15:54)
[2024-01-16] MEDS ORDERED: MIDAZOLAM HCL 2 MG/2 ML INJ ONE (15:54)
[2024-01-16] MEDS ORDERED: HEPARIN 5000 UNIT/ML 1 ML VIAL ONE (15:55)
[2024-01-16] MEDS ORDERED: ATROPINE SULF 1 MG/10 ML SYR IV ONE (15:55)
[2024-01-16] MEDS ORDERED: CLOPIDOGREL 75 MG TABLET ONE (15:55)
[2024-01-16] MEDS ORDERED: ASPIRIN 325 MG TAB ONE (15:55)
[2024-01-16] MEDS ORDERED: HEPARIN 10,000 UNIT/10 ML VIAL IV ONE (15:55)
--- NOTE | 2024-01-16 19:51 | CON ---
Date of Consultation: 01/16/2024 Reason For Consultation: Chest pain. History Of Present Illness: A 63-year-old male, history of diabetes, TIA, dyslipidemia, active smoke r, presented with midsternal chest pain while he was cutting the grass, 8/10 intensity, radiates to t he neck and left upper extremity, got better with rest, but pain is coming and going. He presented t o the emergency room. At the present time, he is chest pain free, but had chest pain earlier this mo rning along with dyspnea on exertion. Denies having any nausea, vomiting, or diaphoresis. No histor y of cardiac disease. Past Medical History: Diabetes, TIA, dyslipidemia. Medications: Refer reconciliation sheet for detailed list. Allergies: MEPERIDINE. Family History: No premature coronary artery disease or cancer. Social History: He is an active smoker, about 1 pack per day. Does not drink or use any drugs. Review of Systems: All systems reviewed and they were negative except as mentioned in HPI. Physical Examination: Vital Signs: Reviewed. Head and Neck: Pupils are equal, reactive to light. Intact eye movements. No JVD. No cervical lym phadenopathy. Neck is supple. Thyroid is not enlarged. Lungs: Clear to auscultation bilaterally. No rhonchi, rales, or crackles. No accessory muscle use. Heart: Regular rate and rhythm. No extra sounds. Abdomen: Soft, nontender. Bowel sounds positive. No organomegaly. No masses or hernia. No rigidi ty or rebound. Extremities: No edema, clubbing, or cyanosis. Intact pulses. Skin: No rash. Neurologic: Alert, awake, oriented x3. No acute focal deficits appreciated. Lymph Nodes: No cervical or axillary lymphadenopathy. Investigations: BUN 16, creatinine 0.92, and hemoglobin is 15.5. Assessment/recommendation: 1.Unstable angina. Symptoms are very typical. Multiple risk factors. Cardiac enzymes are negative . Continue baby aspirin. Keep n.p.o., plan for coronary angiogram today. 2.Dyslipidemia. Continue Lipitor 40 mg q.h.s. 3.Hypertension. Blood pressure is acceptable. Continue home medications. Further recommendation a fter the heart catheterization. SR/MODL Voice ID: [id number] Report ID: [id number]
[2024-01-16] MEDS: MORPHINE 4 MG/ML SYR IV PRN (21:07)
[2024-01-16] MEDS: ONDANSETRON 4 MG/2 ML VIAL IV PRN (21:27)
--- NOTE | 2024-01-17 02:48 | OP ---
Date of Procedure: 01/16/2024 Surgeon: ANGELA AGUILAR Procedures Performed: 1.Selective coronary angiogram. 2.Left heart catheterization. Indication: Unstable angina. Access Site: Right femoral artery, 6-Jamaican, closed with 6-Jamaican Angio-Seal. Complications: None. Bleeding: Less than 20 mL. Total Sedation Time: 30 minutes, used fentanyl and Versed. Description Of Procedure: After risks, benefits, alternatives were explained, the patient agreed to procedure and signed informed consent. The patient was brought into cardiac catheterization laborato , prepped and draped in usual sterile fashion. Then, I accessed right femoral artery using micropu ncture kit, ultrasound guidance, fluoroscopy, and placed 6-Jamaican [place] sheath. We took 6-Jamaican JL4 catheter into the aortic root over J-wire, engaged left main, took standard views and then exchan ged for a 6-Jamaican JR4 catheter, and crossed aortic valve over the wire and measured the LVEDP. Pull back did not record any gradient. Then removed the catheter and the sheath, placed 6-Jamaican Angio-Se al with good hemostasis. The JR4 catheter was used to engage the RCA as well and to get RCA images. The patient was sent to recovery in stable condition. Findings: 1.Left main is normal. 2.LAD: Moderate size, tapers to become very small, has mid focal 30% stenosis. Rest of the LAD is normal. Normal diagonal branches. There are just small arteries. 3.Left circumflex is normal, small. 4.RCA is dominant. It is larger size vessel with mid 20% stenosis. 5.LVEDP is 19 mmHg. Conclusion: 1.Mild nonobstructive coronary artery disease. 2.Elevated LVEDP. Recommendation: Medical management. SR/MODL Voice ID: [id number] Report ID: [id number]
[2024-01-17 06:48] LABS: Hematocrit 47.2 % (39.6-49.0); Hemoglobin 16.5 g/dL (13.6-17.9); MCH 31.2 pg (27.0-35.0); MCHC 34.9 g/dL (32.0-36.0); MCV 89.6 fL (80-100); MPV 8.1 fL (7.6-11.3); Platelets 223 thou/uL (152-406); RBC Red Blood Cell Count 5.28 M/uL (4.33-5.43); Red Cell Distribution Width 13.1 % (12.1-15.2)
[2024-01-17 07:22] LABS: Anion Gap 12.2 mEq/L (5.0-15.0); Potassium 4.2 mEq/L (3.5-5.1)
[2024-01-17 09:31] VITALS: BP 127/79; TEMP 97.8; O2SAT 96
--- NOTE | 2024-01-17 17:14 | EKG ---
Test Date: 2024-01-14 Test Time: 19:11:15 Mold Filler: MARY KAY MEASUREMENT RESULTS: Intervals: Rate: 62 SC: 158 QRSD: 96 QT: 400 QTc: 406 [place]: P: 65 SC: 158 QRS: 95 T: 47 INTERPRETIVE STATEMENTS: Normal sinus rhythm Normal ECG Compared to ECG 07/28/2022 21:07:50 Right-axis deviation no longer present Electronically Signed On 01-17-24 17:05:28 TRAFFIC COORDINATOR by Alvin Jacobson
--- NOTE | 2024-01-17 18:11 | P.DS ---
Admission Date: 01/14/24 Discharge Date: 01/21/24 Disposition: ROUTINE DISCHARGE Discharge Condition: GOOD Reason for Admission: Chest pain Brief History of Present Illness: Diagnosis Chest pain rule out ACS Hyperlipidemia Tobacco dependence syndrome Diabetes mellitus type 2 History of TIA/CVA HPI 01/14/24 Pedro Butts is a 63-year-old gentleman who is a known smoker, DM, prior history of TIA presented to the emergency department with a complaint of sudden onset chest pain which occurred while he was cutting grass. Patient described left-sided sharp chest pain, maximum intensity 8/10, intermittent, 2 episodes, no known relieving or aggravating factors. Patient was chest pain-free but was complaining of chest pressure during my examination. No associated palpitation or shortness of breath. No associated diaphoresis or nausea. In the ER, initial troponin was negative, EKG demonstrated sinus rhythm, no ST-T changes, chest x-ray unremarkable and shows no acute disease. Other blood work un remarkable. Patient is placed under observation for ACS rule out. Hospital Course: Pedro Butts is a pleasant 63 year old male with a past medical history significant for known smoker, DM, prior history of TIA who was admitted to the [facility] on 01/14/24 for ACS r/o. Pedro Butts presented to the ED with chief complaint sudden onset chest pain which occurred while cutting grass. Troponins negative. Chest x-ray reads "no acute cardiopulmonary disease". ECHO 01/15 "EF 45 to 50%, grade 1 diastolic dysfunction, mild basal to mid inferior wall hypokinesis". Dr. Jacobson was consulted and heart catheterization was performed resulting with nonobstructive coronary artery disease. Please continue Lipitor daily and start taking aspirin daily. Follow-up with Dr. Jacobson in 1 week for continued Cardiac health. He has tolerated p.o. diet, ambulating independently, chest pain is resolved, and he is hemodynamically stable for discharge. On 01/17/24, Pedro was seen on morning rounds and deemed medically stable for discharge. Pedro was discharged with instructions to schedule follow-up appointments with PCP and Dr. Jacobson. Pedro was provided prescriptions for ASA. The patient was given the opportunity to ask questions and reported no further questions. Furthermore, all questions were answered to the best of my ability. A copy of this discharge summary will be sent to the above providers to facilitate continuity of care. Today, I personally spent 50 minutes with Pedro, of which greater than 50% of the time was spent in patient education, counseling, and coordination of care as described above. Physical exam GEN: AAOx3, NAD, calm HEENT: Normal conjunctiva, sclera anicteric CV: RRR, S1 S2 present, no edema Pulm: Nonlabored respirations on room air ABD: Soft and benign on palpation, NT/ND MSK: No joint tenderness, 2+ peripheral pulses Integumentary: No rashes Neuro: Normal speech, normal affect Vital Signs/Physical Exam: Temp Pulse Resp BP Pulse Ox 97.8 F 73 18 127/79 96 01/17/24 08:00 01/17/24 08:00 01/17/24 08:00 01/17/24 08:00 01/17/24 08:00 Laboratory Data at Discharge: WBC 8.50 thou/uL (4.3-10.9) 01/17/24 06:10 Hgb 16.5 g/dL (13.6-17.9) 01/17/24 06:10 Hct 47.2 % (39.6-49.0) 01/17/24 06:10 Plt Count 223 thou/uL (152-406) 01/17/24 06:10 Sodium 136 mEq/L (136-145) 01/17/24 06:10 Potassium 4.2 mEq/L (3.5-5.1) 01/17/24 06:10 BUN 19 mg/dL (7-18) H 01/17/24 06:10 Creatinine 0.99 mg/dL (0.70-1.30) 01/17/24 06:10 Glucose 172 mg/dL (74-106) H 01/17/24 06:10 Triglycerides 375 mg/dL (<150) H 01/15/24 05:53 Cholesterol 107 mg/dL (<200) 01/15/24 05:53 HDL Cholesterol 25 mg/dL (40-60) L 01/15/24 05:53 Cholesterol/HDL Ratio 4.28 01/15/24 05:53 Home Medications: Ezetimibe [Zetia*] 10 mg PO DAILY #30 tab 05/26/18 Atorvastatin Calcium [Lipitor] 80 mg PO BEDTIME 01/15/24 Gabapentin 300 mg PO BID 01/15/24 Insulin Detemir [Levemir] 25 units SQ BEDTIME 01/15/24 Meloxicam 7.5 mg PO DAILY 01/15/24 Metformin HCl 1,000 mg PO BID 01/15/24 Semaglutide [Ozempic] 1 mg SQ EVERY 7TH DAY 01/15/24 Aspirin [Aspirin EC 81 MG] 81 mg PO DAILY 30 Days #30 tab 01/17/24 New Medications: Aspirin [Aspirin EC 81 MG] 81 mg PO DAILY 30 Days #30 tab Physician Discharge Instructions: Pedro Butts presented to the ED with chief complaint sudden onset chest pain which occurred while cutting grass. Troponins negative. Dr. Jacobson was consulted and heart catheterization was performed resulting with nonobstructive coronary artery disease. Please continue Lipitor daily and start taking aspirin daily. Follow-up with Dr. Jacobson in 1 week for continued Cardiac health. 1. Please call and schedule a follow-up appointment with your PCP in 3-5 days - Please follow-up with your PCP for medication refills/adjustments 2. Please call and schedule a follow-up appointment with Dr. Jacobson in one week 3. Continue heart healthy and diabetic diet 4. Do not lift greater than 8 pounds for 3 days 5. Smoking cessation 6. Return to ED if symptoms worsen New medication Aspirin 81 mg p.o. daily-called into your pharmacy Diet: ADA Activity: Ad per Followup: Alvin Jacobson MD [ACTIVE - CAN ADMIT] - 1 Week (call to schedule an appointment) Carol Damian NP [Primary Care Provider] - (follow up with PCP in 3-5 days) Time spent managing pt's care (in minutes): 50
== END 2024-01-17 10:52 | disposition home or self-care (01) ==
LOC: ER 19:00 → ERHOLD 22:44 → 4TH 23:12
PROVIDERS: ADMIT Internal Medicine; ATTEND Internal Medicine
PROC: 4A023N7 Measurement of Cardiac Sampling and Pressure, Left Heart, Percutaneous Approach (ICD-10-PCS; principal; 2024-01-16)
PROC: B2111ZZ Fluoroscopy of Multiple Coronary Arteries using Low Osmolar Contrast (ICD-10-PCS; 2024-01-16)
DX: I25.110 Atherosclerotic heart disease of native coronary artery with unstable angina pectoris (principal); I10 Essential (primary) hypertension; R00.1 Bradycardia, unspecified; E78.5 Hyperlipidemia, unspecified; E11.9 Type 2 diabetes mellitus without complications; I25.2 Old myocardial infarction; F17.210 Nicotine dependence, cigarettes, uncomplicated; Z71.6 Tobacco abuse counseling; Z86.73 Personal history of transient ischemic attack (TIA), and cerebral infarction without residual deficits; Z85.46 Personal history of malignant neoplasm of prostate; Z79.4 Long term (current) use of insulin; Z79.899 Other long term (current) drug therapy; Z88.8 Allergy status to other drugs, medicaments and biological substances; Z83.3 Family history of diabetes mellitus; Z80.0 Family history of malignant neoplasm of digestive organs
CPT/HCPCS: 93005; 93306; 85025; 80048 ×3; 36415 ×3; 80061; 82947 ×9; 85027 ×2; 84484 ×4; 83880; 71045; 93458; 76937; 96375; 96374; 99285; C1893; Q9966; C1760; J2001; J1650; J2250; J3010; J2405 ×2; G0378 ×5; J7040; 99152; 99153; J0461; J1644

== ENCOUNTER 2024-10-26 06:17 | Day surgery (SDC) | payer OTHER ==
[2024-10-22 13:59] LABS: Absolute Basophils 0.1 K/uL (0-0.5); Absolute Eosinophils 0.3 K/uL (0-0.5); Absolute Lymphocytes (CBC) 2.7 K/uL (0.7-4.9); Absolute Monocytes 0.6 K/uL (0.1-1.3); Absolute Neutrophil 3.5 K/uL (1.8-8.0); Basophils % 0.8 % (0-1.3); Hematocrit 49.1 % (39.6-49.0); Hemoglobin 16.2 g/dL (13.6-17.9); Lymphocytes % 37.3 % (15.3-44.8); MCH 30.3 pg (27.0-35.0); MCV 91.6 fL (80-100); MPV 8.6 fL (7.6-11.3); Monocytes % 8.8 % (3.3-12.3); Neutrophils % 49.1 % (41.7-73.7); Platelets 251 thou/uL (152-406); RBC Red Blood Cell Count 5.36 M/uL (4.33-5.43); Red Cell Distribution Width 13.4 % (12.1-15.2)
[2024-10-22 14:07] LABS: PT Prothrombin Time 9.6 SECONDS (9.4-12.5); PTT, Activated Partial Thromb 47.7 SECONDS (24.3-36.9); Protime INR 0.85
[2024-10-22 14:12] LABS: Anion Gap 9.2 mEq/L (5.0-15.0); Potassium 4.2 mEq/L (3.5-5.1)
--- NOTE | 2024-10-22 21:35 | RAD REPORT ---
EXAMINATION: TWO VIEW CHEST XR CLINICAL INDICATION: Male, 64 years old. [facility] Pre-op pending shoulder arthroscopy. Diabetes TECHNIQUE: 2 view radiographs of the chest were performed. COMPARISON: 01/14/2024 FINDINGS: The lungs are well inflated and clear, again with elevation of the left hemidiaphragm noted. No pneum othorax or sizable effusion. The heart is normal in size. Mediastinal contours are unremarkable. IMPRESSION: No acute or significant abnormalities.
[2024-10-26] MEDS: NA CHLORIDE 0.9% 1,000 ML ONE (06:45)
[2024-10-26] MEDS ORDERED: dexAMETHasone 10 MG/ML VIAL ONE ×2 (06:59→07:18)
[2024-10-26] MEDS ORDERED: LIDOCAINE 1% MPF 5 ML VIAL ONE (06:59)
[2024-10-26] MEDS ORDERED: FENTANYL CITR 100 MCG/2 ML ONE (06:59)
[2024-10-26] MEDS ORDERED: EPINEPHRINE 1 MG/ML VIAL ONE (06:59)
[2024-10-26] MEDS ORDERED: BUPIVACAINE 0.5% PF 10 ML VIAL ONE (07:00)
[2024-10-26] MEDS ORDERED: MIDAZOLAM HCL 2 MG/2 ML INJ ONE (07:00)
[2024-10-26] MEDS ORDERED: propofoL 200 MG/20 ML VIAL IV ONE (07:18)
[2024-10-26] MEDS ORDERED: LIDOCAINE 2% MPF 5 ML VIAL ONE (07:18)
[2024-10-26] MEDS ORDERED: KETOROLAC 30 MG/ML INJ ONE (07:18)
[2024-10-26] MEDS ORDERED: ONDANSETRON 4 MG/2 ML VIAL ONE (07:18)
[2024-10-26] MEDS ORDERED: ROCURONIUM 50 MG/5 ML VIAL IV ONE (07:18)
[2024-10-26] MEDS: CEFAZOLIN SODIUM 2 GM/VIAL ONE (07:55)
[2024-10-26] MEDS ORDERED: NS 0.9% VIAL 20 ML ONE (08:28)
[2024-10-26] MEDS: EPINEPHRINE 1 MG/ML VIAL ONE (08:44)
--- NOTE | 2024-10-26 10:17 | P.BOP ---
Preoperative diagnosis: right rotator cuff tear, AC arthritis, impingement, biceps tendinitis Postoperative diagnosis: same Primary procedure: right shoulder arthroscopic rotator cuff repair Secondary procedure: right shoulder arthroscopic biceps tenotomy with subscapularis debridement Other procedure(s): right arthroscopic subacromial decompression and distal clavicle excision Estimated blood loss: 10 cc Specimen: none Findings: see dictatoin Anesthesia: General Complications: None Implants: 1- 5.5 mm arthrex corkscrew, 2- 4.75 mm arthrex swivelock Fluids & blood products: per anesthesia record Transferred to: Recovery Room Condition: Good
--- NOTE | 2024-10-26 10:43 | RAD REPORT ---
Exam:Shoulder 1 View History: Right shoulder surgery Findings: Post surgical changes involve the right shoulder. No fracture or dislocation seen. Mild AC joint narrowing.
[2024-10-26 11:00] VITALS: BP 128/69; TEMP 97.5; O2SAT 94
[2024-10-26] MEDS ORDERED: HYDROCODONE/APAP 7.5/325 MG TAB ONE (11:27)
--- NOTE | 2024-10-26 16:01 | EKG ---
Test Date: 2024-10-22 Test Time: 13:46:27 Open Hearth Melter: LIZ MEASUREMENT RESULTS: Intervals: Rate: 69 OR: 150 QRSD: 96 QT: 384 QTc: 411 [place]: P: 61 OR: 150 QRS: 74 T: 47 INTERPRETIVE STATEMENTS: Normal sinus rhythm Possible Left atrial enlargement Borderline ECG Compared to ECG 01/14/2024 19:11:15 No significant changes Electronically Signed On 10-26-24 15:53:51 MEDICINE TEACHER by Yasir Franks
== END 2024-10-26 11:58 | disposition home or self-care (01) ==
LOC: OR 06:17
PROVIDERS: ATTEND Orthopaedic Surgery Sports Medicine
PROC: 0LM14ZZ Reattachment of Right Shoulder Tendon, Percutaneous Endoscopic Approach (ICD-10-PCS; 2024-10-26)
PROC: 0RNJ4ZZ Release Right Shoulder Joint, Percutaneous Endoscopic Approach (ICD-10-PCS; principal; 2024-10-26 07:55)
DX: S46.011A Strain of muscle(s) and tendon(s) of the rotator cuff of right shoulder, initial encounter (principal); M75.41 Impingement syndrome of right shoulder; M75.21 Bicipital tendinitis, right shoulder; M25.811 Other specified joint disorders, right shoulder; M19.011 Primary osteoarthritis, right shoulder
CPT/HCPCS: 93005; 85025; 80048; 36415; 85610; 82947 ×2; 85730; 71046; 73020; 29827; 29826; 29824; 29822; A4216; J2704; J2003 ×2; J2250; J3010; J1100 ×2; J0171 ×2; J2405; J7030

== ENCOUNTER 2025-06-29 14:25 | Emergency (ER) | payer OTHER ==
--- OUTSIDE RECORDS SUMMARY | 2025-06-29 14:31 | XMS REPORT | Continuity of Care Document ---
Author Name Unknown Address [address] [facility] [address] [place] [address] Organization [facility] [place] Address [address] [facility]. [address] [place] [address] Care Team Providers Care Circuit Court Clerk Name Role Phone Bhupinder LUIS, Carol Jordan Primary Care Physician Selbst DPSheeba Hood Attending Clinician [phone] SHEEBA AVILES Attending Clinician Unavail able CAROL ROE Attending Clinician Unava ilable Payers Payer Name Policy Type Policy Number Effective Date Expirati on Date Source [place] [employer] Medicare [id number] 2023 00:00:00 Allergies, Adverse Reactions, Alerts Allergy Name Allergy Type Status Severity Reaction(s) Onset Date Inactive Date Treating Clinician Comments Source ALLERGIE S NOT ON FILE SYSTEMIC Active MHEOUT ALLERGIE S NOT ON FILE SYSTEMIC Active MHEOUT ALLERGIE S NOT ON FILE SYSTEMIC Active MHEOUT ALLERGIE S NOT ON FILE SYSTEMIC Active MHEOUT ALLERGIE S NOT ON FILE SYSTEMIC Active Memoria l Guy Epic ALLERGIE S NOT ON FILE SYSTEMIC Active Memoria l Guy Epic ALLERGIE S NOT ON FILE SYSTEMIC Active Memoria l Guy Epic Social History Social Habit Start Date Stop Date Quantity Comments Source Gender identity 2024-02-05 15:24:22 Identifies as male gender (finding) Maye Navarrete ASSERTION Possible Maye Navarrete Sexual orientation [facility] Navarrete Sex 2024-02-05 15:24:22 2024-02-05 15:24:22 Male (finding) Maye Tovar Epic Smoking Status Start Date Stop Date Source Tobacco smoking consumption unknown Maye Tovar Epic Encounters Start Date/Time End Date/Time Encounter Type Admission Type Attending Clinicians Care Facility Care Department Encounter ID Source 2025-06-03 09:10:00 2025-06-03 09:52:24 Office Visit SelbstSheeba Roberto [facility] 1.2.840.114 350.1.13.70 8.2.7.2.686 [id number] Yrn Tovar [facility] 2025-06-03 08:56:13 2025-06-03 09:52:24 Outpatient Elective SELBST, SHEEBA MHEOUT MHEOUT [id number] MHEOUT 2025-04-10 09:00:00 2025-04-10 09:31:00 Office Visit Selewat Sheeba Azevedo [facility] 1.2.840.114 350.1.13.70 8.2.7.2.686 [id number] [facility] 2025-04-10 08:44:12 2025-04-10 09:31:00 Outpatient Elective SELBST, SHEEBA MHEOUT MHEOUT [id number] MHEOUT 2025-03-29 08:38:00 2025-03-29 08:38:00 Outpatient CAROL RICH [facility] [id number] [facility] 2025-03-06 13:14:45 2025-03-06 13:14:45 Outpatient SFA [facility] [id number] Alcides Claire 2025-01-16 09:24:27 2025-01-16 10:27:18 Outpatient Elective SELBSTSHEEBA MHEOUT MHEOUT [id number] MHEOUT 2025-01-16 09:50:00 2025-01-16 10:00:00 Office Visit Selewat Sheeba Azevedo [facility] 1.2.840.114 350.1.13.70 8.2.7.2.686 [id number] [facility] 2025-01-01 09:40:00 2025-01-01 09:40:00 Outpatient EL CAROL ROE [facility] [id number] [facility] 2024-12-19 09:00:00 2024-12-19 09:52:24 Office Visit SelSheeba garces [facility] 1.2.840.114 350.1.13.70 8.2.7.2.686 [id number] [facility] 2024-12-19 08:41:02 2024-12-19 09:52:24 Outpatient Elective SELBSTSHEEBA MHEOUT MHEOUT [id number] MHEOUT 2024-10-08 09:24:54 2024-10-08 09:47:13 Outpatient Elective SELBSTSHEEBAOUT MHEOUT [id number] EOUT 2024-10-08 09:00:00 2024-10-08 09:10:00 Office Visit SelSheeba [facility] 1.2.840.114 350.1.13.70 8.2.7.2.686 [id number] [facility] 2024-09-24 12:00:00 2024-09-24 12:23:14 Office Visit Sheeba Aviles [facility] 1.2.840.114 350.1.13.70 8.2.7.2.686 [id number] [facility] 2024-09-24 11:41:04 2024-09-24 12:23:14 Outpatient Elective SELBSTSHEEBA MHEOUT MHEOUT [id number] MHEOUT 2024-09-05 08:49:53 2024-09-05 10:22:24 Outpatient Elective SELBSTSHEEBAOUT MHEOUT [id number] EOUT 2024-09-05 09:40:00 2024-09-05 09:50:00 Office Visit SelSheeba [facility] 1.2.840.114 350.1.13.70 8.2.7.2.686 [id number] Yrn Tovar [facility] 2024-08-22 09:50:00 2024-08-22 10:07:03 Office Visit Selbst, Sheeba [facility] 1.2.840.114 350.1.13.70 8.2.7.2.686 [id number] Yrn Tovar [facility] 2024-08-22 09:05:10 2024-08-22 10:07:03 Outpatient Elective SELBST, SHEEBA ConnieOUT MHEOUT [id number] [facility] 2024-07-25 09:22:48 2024-07-25 10:00:05 Outpatient Elective SELBST, SHEEBA IZABEL EOUT [id number] [facility] 2024-07-25 09:20:00 2024-07-25 10:00:05 Office Visit Selbst, Sheeba [facility] 1.2.840.114 350.1.13.70 8.2.7.2.686 [id number] [facility] 2024-07-09 10:21:41 2024-07-09 11:08:22 Outpatient Elective SELBST, SHEEBA ConnieOUT MHEOUT [id number] [facility] 2024-07-09 09:20:00 2024-07-09 11:08:22 Office Visit Selbst, Sheeba [facility] 1.2.840.114 350.1.13.70 8.2.7.2.686 [id number] [facility] 2024-06-21 14:56:00 2024-06-21 14:56:00 Outpatient CAROL RICH [facility] [id number] [facility] 2024-04-11 10:10:00 2024-04-11 10:11:47 Office Visit Elective Sheeba Av[facility] 1.2.840.114 350.1.13.70 8.2.7.2.686 [id number] Yrn Navarrete 2024-03-19 12:20:00 2024-03-19 12:20:00 Outpatient MANDI RANGELBHUPINDERCAROL Mcfarlane [facility] [id number] [facility] 2024-02-28 16:25:32 2024-02-28 16:25:32 Outpatient SFA SFA [id number] Alcides Claire 2023-11-01 11:00:00 2023-11-01 11:00:00 Outpatient CAROL RICH [facility] [id number] [facility] 2023-07-20 10:32:29 2023-07-20 10:32:29 Outpatient SFA SFA [id number] Alcides Claire 2023-06-10 11:01:00 2023-06-10 11:01:00 Outpatient CAROL RICH [facility] [id number] [facility] 2023-02-21 15:13:59 2023-02-21 15:13:59 Outpatient SFA SFA [id number] Alcides Wood [place] 2023-02-07 08:40:41 2023-02-07 08:40:41 Outpatient SFA SFA [id number] Alcides Wood [place] 2022-08-28 09:32:54 2022-08-28 09:32:54 Outpatient SFA SFA [id number] Alcides Wood [place] 2022-08-21 09:57:26 2022-08-21 09:57:26 Outpatient SFA SFA [id number] Alcides Israel [place] Results Test Description Test Time Test Comments Results Result Co mments Source HEMOGLOBIN [id number] 03:11:04* Test Item Value Reference Range Interpretation Comme nts HEMOGLOBIN A1c (test code = 77334) 6.5 % 4.2-5.6 H [employer] GUIDELINES FOR HGB A1C: [...] LABORATORY CONSULTATION. HIV 1/2 4TH GEN, RFLX [id number] 02:56:26* Test Item Value Reference Range Interpretation Comme nts HIV 1/2 4TH GEN, RFLX CONF ( test code = 3514) NON-REACTIVE NON-REACTIVE TSH, THIRD [id number] 01:55:46* Test Item Value Reference Range Interpretation Comme nts TSH, THIRD GENERATION (test code = 2821) 1.090 UIU/ML 0.400-4.100 PSA, [id number] 01:55:46* Test Item Value Reference Range Interpretation Comme nts PSA, TOTAL (test code = 2606) <0.02 NG/ML See_Comment NOTE: Methodolog y is Crow Miguelito Electrochemiluminescence Immunoassay traceable to WHO reference standard 96/760. [Automated message] The system which generated this result transmitted reference range: <=4.00. The reference range was not used to interpret this result as normal/abnormal. COMPREHENSIVE METABOLIC [id number] 23:58:04* Test Item Value Reference Range Interpretation Comme nts GLUCOSE (test code = 2217) 119 MG/DL 70-99 H BUN (test code = 2208) 23 MG/DL 8-23 CREATININE (test code = 2214) 0.89 MG/DL 0.80-1.40 eGFR (2020 CKD-EPI) (test code = 40610) 96 ML/MIN/1.73 >60 CALC BUN/CREAT (test code = 2235) 26 RATIO 6-28 SODIUM (test code = 223) 144 MEQ/L 133-146 POTASSIUM (test code = 2228) 4.6 MEQ/L 3.5-5.4 CHLORIDE (test code = 2215) 106 MEQ/L 95-107 CARBON DIOXIDE (test code = 2206) 24 MEQ/L 19-31 CALCIUM (test code = 2208) 9.4 MG/DL 8.5-10.5 PROTEIN, TOTAL (test code = 2228) 6.9 G/DL 6.1-8.3 ALBUMIN (test code = 1) 4.8 G/DL 3.5-5.2 CALC GLOBULIN (test code = 0) 2.1 G/DL 1.9-3.7 CALC A/G RATIO (test code = 2233) 2.3 RATIO 1.0-2.6 BILIRUBIN, TOTAL (test code = 2206) 0.6 MG/DL See_Comment [Automated me ssage] The system which generated this result transmitted reference range: <=1.2. The reference range was not used to interpret this result as normal/abnormal. ALKALINE PHOSPHATASE (test code = 2203) 100 U/L 40-123 AST (test code = 2217) 17 U/L 9-50 ALT (test code = 2218) 26 U/L 5-50 LIPID [id number] 23:58:04* Test Item Value Reference Range Interpretation Comme nts CHOLESTEROL (test code = 0) 110 MG/DL <200 TRIGLYCERIDES (test code = 2) 146 MG/DL <150 HDL CHOLESTEROL (test code = 2219) 30 MG/DL >39 L CALC LDL CHOL (test code = 2236) 57 MG/DL <100 NOTE: CALCULATED LDL IS BASED ON CRYSTAL-CRAIG METHOD WHICHINCLUDES ADJUSTABLE TRIGLYCERIDE:VLDL CHOLESTEROL RATIO.THIS FACTOR VARIES BY MEASURED TRIGLYCERIDE AND NON-HDLCHOLESTEROL CONCENTRATIONS WITH INCREASED CALCULATED LDL SEENIN HIGHER TRIGLYCERIDE OR LOWER NON-HDL SPECIMENS. FOR MOREINFORMATION, SEE CLIENT ANNOUNCEMENT AT [email or web address] RISK RATIO LDL/HDL (test code = 2237) 1.90 RATIO <3.55 UNLESS OTHERW ISE INDICATED, ALL TESTING PERFORMED [facility] [address] [place] [id number] SENIOR ANDROID DEVELOPER: DEX RAI M.D. CLIA NUMBER [id number] [facility] [place] [id number] HEMOGLOBIN [id number] 03:35:18* Test Item Value Reference Range Interpretation Comme nts HEMOGLOBIN A1c (test code = 52643) 7.4 % 4.2-5.6 H [employer] GUIDELINES FOR HGB A1C: [...] OR LABORATORY CONSULTATION. CBC W/AUTO DIFF WITH [id number] 03:20:17* Test Item Value Reference Range Interpretation [...] = 1065) 0.0 /100 WBC'S See_Comment [Automated [employer]] The system which generated this result transmitted [...] 0.00-0.10 ABS NUCLEATED RBCS (test code = 33992) 0.00 K/UL 0.00-0.11 Notes Upcoming Encounters Date/Time Note Provider Source 2025-06-03 09:53:11 Sheeba Aviles, [facility] - 06/03/2025 9:10 AM CDT CHIEF COMPLAINT: EXOSTOSIS/BUNION, RIGHT RFC HYPERKERATOSIS, LEFT SUB 2ND METATARSAL HEAD - resolved 01/16/2025 HELOMA MOLLE HAMMERTOE, LEFT MEDIAL 2ND - resolved 12/19/2024 HISTORY OF PRESENT ILLNESS: Patient states hyperkeratosis has resolved and is very satisfied with treatment plan and results Patient states nails are thick yellow elongated, bilateral feet Patient denies pain, infection, injury, open wounds in the bilateral lower extremity Patient states he has not checked his blood sugar and several weeks --- Patient states new concern for hyperkeratosis, left sub 2nd metatarsal head Patient no further concerns at the heloma Molle, left medial 2nd digit Patient states previous debridement was successful at resolving the pain, however has since recurred and therefore requesting repeat debridement Patient currently denies infection, injury, other wounds in the bilateral lower extremity Patient states pain currently rated 2/10 on palpation, left sub 2nd metatarsal head --- Patient states he may have stepped on a nail causing a change in the gait and exacerbating the pain at the medial left 2nd digit Patient denies infection, injury, open wounds in the bilateral lower extremity Patient states pain currently rated 2/10, left medial 2nd digit --- Patient returns for right foot bunion eval, s/p BILATERAL surgical correction (Dr Nick), approximately 2014 Patient states pain during ambulation due to irritation within the shoe gear from the large exostosis at the RIGHT dorsal medial 1st metatarsophalangeal joint Patient currently denies infection, injury, open wounds Patient states pain currently rated 2/10 on palpation, right dorsal medial 1st metatarsal head --- Patient returns for routine pedal evaluation in hopes to avoid complications in the lower extremity due to multiple high risk comorbidities Patient also requesting of x-rays at previous bunion surgery, right foot 1st metatarsophalangeal joint Patient states nails are painful, thick, and elongated. Patient denies infection, injury, wounds Patient states periodic pain with prolonged ambulation at work, right foot 1st metatarsophalangeal joint Patient states most recent fasting blood sugar was tested this morning with a value of 128 mg/dl. PHYSICAL EXAM OF THE LOWER EXTREMITY: Vascular: (-) edema symmetrical to bilateral lower extremity, (-) ecchymosis, (-) erythema 2/4 Dorsal pedis pulse, bilateral 2/4 Posterior tibial pulse, bilateral (+) normal Capillary Refill time (+) varicosities, (-) pedal hair growth Neurological: (+) mixed sensation with 5.07 Bancroft Danika monofilament examination to the most distal lower extremity (+) normal response to hot, cold, sharp, blunted and vibratory sensations. (-) clonus present. Dermatological: (-) hyperkeratosis, left sub 2nd metatarsal head (-) hyperkeratosis, left medial 2nd digit abutting the 1st digit nail (+) scar, dorsal medial RIGHT 1st metatarsophalangeal joint (+) Nails are thick, yellow, elongated. Debrided without complications (+) resolved nail biopsy site, left 2nd digit (-) signs of soft tissue infection, (-) open wounds, (-) macerations (-) abscess (-) ischemic tissue (+) normal temperature when compared to contralateral limb (+) normal color, tugor, and elasticity. Musculoskeletal: (-) pain on palpation, left sub 2nd metatarsal head (+) hammertoe with medial angulation, left 2nd (-) pain on palpation, left medial 2nd digit, (-) pain on palpation at large exostosis, RIGHT dorsal medial 1st metatarsal head (-) pain on palpation through the lower extremity (+) Semi-rigid hammertoe deformities, BILATERAL (-) other gross osseous abnormalities 5/5 muscle strength to extrinsic pedal muscle groups (-) evidence of compartment syndrome, (-) evidence of deep vein thrombosis X-rays bilateral feet 07/20/2024: (+) Large exostosis, right dorsal medial 1st metatarsal head (+) well aligned/corrected bunion deformity (+) hardware intact at the BILATERAL midshaft 1st proximal phalanx X-RAYS BILATERAL FEET 09/03/2024: (+) Hypertrophic exostosis, left medial 2nd proximal interphalangeal joint secondary to arthritis X-rays BILATERAL feet 04/19/2025: (+) mild arthritis 1st metatarsophalangeal joint (+) hypertrophic exostosis RIGHT medial 1st metatarsal head (+) stable fixation, bilateral 1st proximal phalanx Pathology left 2nd digit nail biopsy 03/28/2023: (+) cladosporium species. ASSESSMENT: EXOSTOSIS/BUNION, RIGHT Onychomycosis, bilateral feet HYPERKERATOSIS, LEFT SUB 2ND METATARSAL HEAD - resolved 01/16/2025 HELOMA MOLLE HAMMERTOE, LEFT MEDIAL 2ND - resolved 12/19/2024 --- Diabetes type 2 with neuropathy. TREATMENT PLAN: - Extensive office visit discussing possible pedal complications associated prolonged and enlarged exostosis - hammertoe - offload with toe spacer - hyperkeratosis - no further debridement indicated, use topical moisturizing cream/ lotion, no bandage indicated - heloma Molle - no further debridement indicated - Nails - DEBRIDED without complications - nail biopsy - biopsy site is resolved therefore no bandage indicated, use topical antifungal - Medication - moisturize feet daily to help prevent ulcerations and xerosis - X-RAYS - reviewed - Vascular - no further intervention indicated palpable pedal pulses, no open wounds, no ischemic tissue. - Edema - compression stockings advised - Shoes - patient educated to obtain diabetic shoes, custom molded inserts - Diabetic management - spent significant time discussing and educating patient about appropriate diabetic management and care for the lower extremity. Patient also advised to follow-up with detailed regimen with PCP - orthotics - patient defers custom and understands risks, patient advised to obtain [id number] -weight bearing - as tolerated in well protective shoes with wide toe box to reduce pressure from painful exostosis - oncology - patient states no acute concerns and patient was cleared for shoulder surgery after abnormal blood values found in preparation for shoulder surgery - RIGHT dorsal medial 1st metatarsal head exostosis, patient defers further surgical intervention since no further concerns - LEFT medial 2nd digit heloma molle - USE TOE SPACERS, secondary to hypertrophic exostosis, may benefit from surgical excision in the future if pain recurs - Return 2 weeks for possible surgical planning after has completed therapy for LEFT ankle ORIF (at [facility] in [place]) Patient advised to report to my clinic or the emergency room immediately with any questions or concerns. Patient Instructions: Discussion: A detailed discussion was provided to the patient with specific reference to etiology, pathology, alternate treatment options, and prognosis. All risks and complications (including side effects) with each treatment/medication alternative were outlined in detail including but not limited to: Pain, swelling, numbness, loss of function, loss of limb, bleeding, hematoma, scarring, failure to relieve condition, surgery, additional/revisional surgery, reflex sympathetic dystrophy, complex regional pain syndrome, reoccurrence of deformity, joint stiffness, flail toe, bone and/or soft tissue infection, blood clots, pulmonary embolism, possible , delayed or non-healing. X-rays, graphs and drawings were all used to assist with patient comprehension when appropriate. All patients questions were answered and stated they fully understood. No guarantee as to results or outcome of treatment was made. I have discussed with the patient or legally responsible person prior to obtaining consent: the risks, potential benefits and drawbacks, significant alternatives, potential for problems related to recuperation, likelihood of success, and possible results of non-treatment, and the patient or the legally responsible person has agreed to proceed. [facility] Due Date Last Done Comments CT Colonography 1958 Colonoscopy 1958 Colorectal Cancer Screening 1958 FIT-DNA 1958 FIT 1958 FOBT 1958 Sigmoidoscopy 1958 Diabetes: Foot Exam 1968 Diabetes: Retinopathy Screening 1968 DTaP/Tdap/Td Vaccines (1 - Tdap) 1977 Zoster Vaccines (1 of 2) 2008 Pneumococcal Vaccine: 50+ Years (2 of 2 - PCV) 12/27/2014 12/27/2013 Respiratory Syncytial Virus (RSV) Adult Series (1 - Risk 60-74 years 1-dose series) 2018 Medicare Annual Wellness (AWV) 04/13/2024 03/14/2023 Influenza Vaccine (#1) 2025 12/27/2013 Diabetes: Hemoglobin A1C 10/04/2025 025, 01/03/2025, 03/18/2024 Diabetes: Urine Protein Screening 04/03/2026 04/03/2025 Lipid Panel 04/03/2026 04/03/2025, 01/03/2025, 03/18/2024 HIB Vaccines Aged Out No longer eligi ble based on patient's age to complete this topic HPV Vaccines Aged Out No longer eligi ble based on patient's age to complete this topic Hepatitis A Vaccines Aged Out No long er eligible based on patient's age to complete this topic Hepatitis B Vaccines Aged Out No long er eligible based on patient's age to complete this topic IPV Vaccines Aged Out No longer eligi ble based on patient's age to complete this topic Meningococcal Vaccine Aged Out No [place] sandy eligible based on patient's age to complete this topic Rotavirus Vaccines Aged Out No longer eligible based on patient's age to complete this topic [id number] 09:53:11 Diagnosis Abnormal foot finding - Prim mireya [id number] 09:53:11 [place] [id number] 09:53:11* Sheeba Aviles, DP - 06/03/2025 9:10 AM CDT CHIEF COMPLAINT: EXOSTOSIS/BUNION, RIGHT RFC HYPERKERATOSIS, LEFT SUB 2ND METATARSAL HEAD - resolved 01/16/2025 HELOMA MOLLE HAMMERTOE, LEFT MEDIAL 2ND - resolved 12/19/2024 HISTORY OF PRESENT ILLNESS: Patient states hyperkeratosis has resolved and is very satisfied with treatment plan and results Patient states nails are thick yellow elongated, bilateral feet Patient denies pain, infection, injury, open wounds in the bilateral lower extremity Patient states he has not checked his blood sugar and several weeks --- Patient states new concern for hyperkeratosis, left sub 2nd metatarsal head Patient no further concerns at the heloma Molle, left medial 2nd digit Patient states previous debridement was successful at resolving the pain, however has since recurred and therefore requesting repeat debridement Patient currently denies infection, injury, other wounds in the bilateral lower extremity Patient states pain currently rated 2/10 on palpation, left sub 2nd metatarsal head --- Patient states he may have stepped on a nail causing a change in the gait and exacerbating the pain at the medial left 2nd digit Patient denies infection, injury, open wounds in the bilateral lower extremity Patient states pain currently rated 2/10, left medial 2nd digit --- Patient returns for right foot bunion eval, s/p BILATERAL surgical correction (Dr Nick), approximately 2014 Patient states pain during ambulation due to irritation within the shoe gear from the large exostosis at the RIGHT dorsal medial 1st metatarsophalangeal joint Patient currently denies infection, injury, open wounds Patient states pain currently rated 2/10 on palpation, right dorsal medial 1st metatarsal head --- Patient returns for routine pedal evaluation in hopes to avoid complications in the lower extremity due to multiple high risk comorbidities Patient also requesting of x-rays at previous bunion surgery, right foot 1st metatarsophalangeal joint Patient states nails are painful, thick, and elongated. Patient denies infection, injury, wounds Patient states periodic pain with prolonged ambulation at work, right foot 1st metatarsophalangeal joint Patient states most recent fasting blood sugar was tested this morning with a value of 128 mg/dl. PHYSICAL EXAM OF THE LOWER EXTREMITY: Vascular: (-) edema symmetrical to bilateral lower extremity, (-) ecchymosis, (-) erythema 2/4 Dorsal pedis pulse, bilateral 2/4 Posterior tibial pulse, bilateral (+) normal Capillary Refill time (+) varicosities, (-) pedal hair growth Neurological: (+) mixed sensation with 5.07 Bancroft Danika monofilament examination to the most distal lower extremity (+) normal response to hot, cold, sharp, blunted and vibratory sensations. (-) clonus present. Dermatological: (-) hyperkeratosis, left sub 2nd metatarsal head (-) hyperkeratosis, left medial 2nd digit abutting the 1st digit nail (+) scar, dorsal medial RIGHT 1st metatarsophalangeal joint (+) Nails are thick, yellow, elongated. Debrided without complications (+) resolved nail biopsy site, left 2nd digit (-) signs of soft tissue infection, (-) open wounds, (-) macerations (-) abscess (-) ischemic tissue (+) normal temperature when compared to contralateral limb (+) normal color, tugor, and elasticity. Musculoskeletal: (-) pain on palpation, left sub 2nd metatarsal head (+) hammertoe with medial angulation, left 2nd (-) pain on palpation, left medial 2nd digit, (-) pain on palpation at large exostosis, RIGHT dorsal medial 1st metatarsal head (-) pain on palpation through the lower extremity (+) Semi-rigid hammertoe deformities, BILATERAL (-) other gross osseous abnormalities 5/5 muscle strength to extrinsic pedal muscle groups (-) evidence of compartment syndrome, (-) evidence of deep vein thrombosis X-rays bilateral feet 07/20/2024: (+) Large exostosis, right dorsal medial 1st metatarsal head (+) well aligned/corrected bunion deformity (+) hardware intact at the BILATERAL midshaft 1st proximal phalanx X-RAYS BILATERAL FEET 09/03/2024: (+) Hypertrophic exostosis, left medial 2nd proximal interphalangeal joint secondary to arthritis X-rays BILATERAL feet 04/19/2025: (+) mild arthritis 1st metatarsophalangeal joint (+) hypertrophic exostosis RIGHT medial 1st metatarsal head (+) stable fixation, bilateral 1st proximal phalanx Pathology left 2nd digit nail biopsy 03/28/2023: (+) cladosporium species. ASSESSMENT: EXOSTOSIS/BUNION, RIGHT Onychomycosis, bilateral feet HYPERKERATOSIS, LEFT SUB 2ND METATARSAL HEAD - resolved 01/16/2025 HELOMA MOLLE HAMMERTOE, LEFT MEDIAL 2ND - resolved 12/19/2024 --- Diabetes type 2 with neuropathy. TREATMENT PLAN: - Extensive office visit discussing possible pedal complications associated prolonged and enlarged exostosis - hammertoe - offload with toe spacer - hyperkeratosis - no further debridement indicated, use topical moisturizing cream/ lotion, no bandage indicated - heloma Molle - no further debridement indicated - Nails - DEBRIDED without complications - nail biopsy - biopsy site is resolved therefore no bandage indicated, use topical antifungal - Medication - moisturize feet daily to help prevent ulcerations and xerosis - X-RAYS - reviewed - Vascular - no further intervention indicated palpable pedal pulses, no open wounds, no ischemic tissue. - Edema - compression stockings advised - Shoes - patient educated to obtain diabetic shoes, custom molded inserts - Diabetic management - spent significant time discussing and educating patient about appropriate diabetic management and care for the lower extremity. Patient also advised to follow-up with detailed regimen with PCP - orthotics - patient defers custom and understands risks, patient advised to obtain [id number] -weight bearing - as tolerated in well protective shoes with wide toe box to reduce pressure from painful exostosis - oncology - patient states no acute concerns and patient was cleared for shoulder surgery after abnormal blood values found in preparation for shoulder surgery - RIGHT dorsal medial 1st metatarsal head exostosis, patient defers further surgical intervention since no further concerns - LEFT medial 2nd digit heloma molle - USE TOE SPACERS, secondary to hypertrophic exostosis, may benefit from surgical excision in the future if pain recurs - Return 2 weeks for possible surgical planning after has completed therapy for LEFT ankle ORIF (at [facility] in [place]) Patient advised to report to my clinic or the emergency room immediately with any questions or concerns. Patient Instructions: Discussion: A detailed discussion was provided to the patient with specific reference to etiology, pathology, alternate treatment options, and prognosis. All risks and complications (including side effects) with each treatment/medication alternative were outlined in detail including but not limited to: Pain, swelling, numbness, loss of function, loss of limb, bleeding, hematoma, scarring, failure to relieve condition, surgery, additional/revisional surgery, reflex sympathetic dystrophy, complex regional pain syndrome, reoccurrence of deformity, joint stiffness, flail toe, bone and/or soft tissue infection, blood clots, pulmonary embolism, possible , delayed or non-healing. X-rays, graphs and drawings were all used to assist with patient comprehension when appropriate. All patients questions were answered and stated they fully understood. No guarantee as to results or outcome of treatment was made. I have discussed with the patient or legally responsible person prior to obtaining consent: the risks, potential benefits and drawbacks, significant alternatives, potential for problems related to recuperation, likelihood of success, and possible results of non-treatment, and the patient or the legally responsible person has agreed to proceed. [id number]:53:11Upcoming Encounters Health Maintenance Due Date Last Done Comments CT Colonography 1958 Colonoscopy 1958 Colorectal Cancer Screening 1958 FIT-DNA 1958 FIT 1958 FOBT 1958 Sigmoidoscopy 1958 Diabetes: Foot Exam 1968 Diabetes: Retinopathy Screening 1968 DTaP/Tdap/Td Vaccines (1 - Tdap) 1977 Zoster Vaccines (1 of 2) 2008 Pneumococcal Vaccine: 50+ Years (2 of 2 - PCV) 12/27/2014 12/27/2013 Respiratory Syncytial Virus (RSV) Adult Series (1 - Risk 60-74 years 1-dose series) 2018 Medicare Annual Wellness (AWV) 04/13/2024 03/14/2023 Influenza Vaccine (#1) 2025 12/27/2013 Diabetes: Hemoglobin A1C 10/04/2025 025, 01/03/2025, 03/18/2024 Diabetes: Urine Protein Screening 04/03/2026 04/03/2025 Lipid Panel 04/03/2026 04/03/2025, 01/03/2025, 03/18/2024 HIB Vaccines Aged Out No longer eligi ble based on patient's age to complete this topic HPV Vaccines Aged Out No longer eligi ble based on patient's age to complete this topic Hepatitis A Vaccines Aged Out No long er eligible based on patient's age to complete this topic Hepatitis B Vaccines Aged Out No long er eligible based on patient's age to complete this topic IPV Vaccines Aged Out No longer eligi ble based on patient's age to complete this topic Meningococcal Vaccine Aged Out No [place] sandy eligible based on patient's age to complete this topic Rotavirus Vaccines Aged Out No longer eligible based on patient's age to complete this topic [id number] 09:53:11 Diagnosis Abnormal foot finding - Prim mireya [facility] [id number] 09:53:11 [place] [id number] 09:31:58* Sheeba Aviles, CAROLIN - 04/10/2025 9:00 AM CDT CHIEF COMPLAINT: EXOSTOSIS/BUNION, RIGHT RFC HYPERKERATOSIS, LEFT SUB 2ND METATARSAL HEAD - resolved 01/16/2025 HELOMA MOLLE HAMMERTOE, LEFT MEDIAL 2ND - resolved 12/19/2024 HISTORY OF PRESENT ILLNESS: Patient states hyperkeratosis has resolved and is very satisfied with treatment plan and results Patient states nails are thick yellow elongated, bilateral feet Patient denies pain, infection, injury, open wounds in the bilateral lower extremity Patient states he has not checked his blood sugar and several weeks --- Patient states new concern for hyperkeratosis, left sub 2nd metatarsal head Patient no further concerns at the heloma Molle, left medial 2nd digit Patient states previous debridement was successful at resolving the pain, however has since recurred and therefore requesting repeat debridement Patient currently denies infection, injury, other wounds in the bilateral lower extremity Patient states pain currently rated 2/10 on palpation, left sub 2nd metatarsal head --- Patient states he may have stepped on a nail causing a change in the gait and exacerbating the pain at the medial left 2nd digit Patient denies infection, injury, open wounds in the bilateral lower extremity Patient states pain currently rated 2/10, left medial 2nd digit --- Patient returns for right foot bunion eval, s/p BILATERAL surgical correction (Dr Nick), approximately 2014 Patient states pain during ambulation due to irritation within the shoe gear from the large exostosis at the RIGHT dorsal medial 1st metatarsophalangeal joint Patient currently denies infection, injury, open wounds Patient states pain currently rated 2/10 on palpation, right dorsal medial 1st metatarsal head --- Patient returns for routine pedal evaluation in hopes to avoid complications in the lower extremity due to multiple high risk comorbidities Patient also requesting of x-rays at previous bunion surgery, right foot 1st metatarsophalangeal joint Patient states nails are painful, thick, and elongated. Patient denies infection, injury, wounds Patient states periodic pain with prolonged ambulation at work, right foot 1st metatarsophalangeal joint Patient states most recent fasting blood sugar was tested this morning with a value of 128 mg/dl. PHYSICAL EXAM OF THE LOWER EXTREMITY: Vascular: (-) edema symmetrical to bilateral lower extremity, (-) ecchymosis, (-) erythema 2/4 Dorsal pedis pulse, bilateral 2/4 Posterior tibial pulse, bilateral (+) normal Capillary Refill time (+) varicosities, (-) pedal hair growth Neurological: (+) mixed sensation with 5.07 Bancroft Danika monofilament examination to the most distal lower extremity (+) normal response to hot, cold, sharp, blunted and vibratory sensations. (-) clonus present. Dermatological: (-) hyperkeratosis, left sub 2nd metatarsal head (-) hyperkeratosis, left medial 2nd digit abutting the 1st digit nail (+) scar, dorsal medial RIGHT 1st metatarsophalangeal joint (+) Nails are thick, yellow, elongated. Debrided without complications (+) resolved nail biopsy site, left 2nd digit (-) signs of soft tissue infection, (-) open wounds, (-) macerations (-) abscess (-) ischemic tissue (+) normal temperature when compared to contralateral limb (+) normal color, tugor, and elasticity. Musculoskeletal: (-) pain on palpation, left sub 2nd metatarsal head (+) hammertoe with medial angulation, left 2nd (-) pain on palpation, left medial 2nd digit, (-) pain on palpation at large exostosis, RIGHT dorsal medial 1st metatarsal head (-) pain on palpation through the lower extremity (+) Semi-rigid hammertoe deformities, BILATERAL (-) other gross osseous abnormalities 5/5 muscle strength to extrinsic pedal muscle groups (-) evidence of compartment syndrome, (-) evidence of deep vein thrombosis X-rays bilateral feet 07/20/2024: (+) Large exostosis, right dorsal medial 1st metatarsal head (+) well aligned/corrected bunion deformity (+) hardware intact at the BILATERAL midshaft 1st proximal phalanx X-RAYS BILATERAL FEET 09/03/2024: (+) Hypertrophic exostosis, left medial 2nd proximal interphalangeal joint secondary to arthritis Pathology left 2nd digit nail biopsy 03/28/2023: (+) cladosporium species. ASSESSMENT: EXOSTOSIS/BUNION, RIGHT Onychomycosis, bilateral feet HYPERKERATOSIS, LEFT SUB 2ND METATARSAL HEAD - resolved 01/16/2025 HELOMA MOLLE HAMMERTOE, LEFT MEDIAL 2ND - resolved 12/19/2024 --- Diabetes type 2 with neuropathy. TREATMENT PLAN: - Extensive office visit WITH discussing possible pedal complications associated prolonged and enlarged exostosis - hammertoe - offload with toe spacer - hyperkeratosis - no further debridement indicated, use topical moisturizing cream/ lotion, no bandage indicated - heloma Molle - no further debridement indicated - Nails - DEBRIDED without complications - nail biopsy - biopsy site is resolved therefore no bandage indicated, use topical antifungal - Medication - moisturize feet daily to help prevent ulcerations and xerosis - X-RAYS- ORDERED 04/10/2025 - Vascular - no further intervention indicated palpable pedal pulses, no open wounds, no ischemic tissue. - Edema - compression stockings advised - Shoes - patient educated to obtain diabetic shoes, custom molded inserts - Diabetic management - spent significant time discussing and educating patient about appropriate diabetic management and care for the lower extremity. Patient also advised to follow-up with detailed regimen with PCP - orthotics - patient defers custom and understands risks, patient advised to obtain [id number] -weight bearing - as tolerated in well protective shoes with wide toe box to reduce pressure from painful exostosis - oncology - patient states no acute concerns and patient was cleared for shoulder surgery after abnormal blood values found in preparation for shoulder surgery - RIGHT dorsal medial 1st metatarsal head exostosis, patient defers further surgical intervention since no further concerns - LEFT medial 2nd digit heloma molle - USE TOE SPACERS, secondary to hypertrophic exostosis, may benefit from surgical excision in the future if pain recurs - Return 2 weeks for imaging review and possible surgical planning now the patient's has completed LEFT ankle ORIF at [facility] in [place]) Patient advised to report to my clinic or the emergency room immediately with any questions or concerns. Patient Instructions: Discussion: A detailed discussion was provided to the patient with specific reference to etiology, pathology, alternate treatment options, and prognosis. All risks and complications (including side effects) with each treatment/medication alternative were outlined in detail including but not limited to: Pain, swelling, numbness, loss of function, loss of limb, bleeding, hematoma, scarring, failure to relieve condition, surgery, additional/revisional surgery, reflex sympathetic dystrophy, complex regional pain syndrome, reoccurrence of deformity, joint stiffness, flail toe, bone and/or soft tissue infection, blood clots, pulmonary embolism, possible , delayed or non-healing. X-rays, graphs and drawings were all used to assist with patient comprehension when appropriate. All patients questions were answered and stated they fully understood. No guarantee as to results or outcome of treatment was made. I have discussed with the patient or legally responsible person prior to obtaining consent: the risks, potential benefits and drawbacks, significant alternatives, potential for problems related to recuperation, likelihood of success, and possible results of non-treatment, and the patient or the legally responsible person has agreed to proceed. Rhea [facility] [id number] 09:31:58Upcoming Encounters Health Maintenance Due Date Last Done Comments CT Colonography 1958 Colonoscopy 1958 Colorectal Cancer Screening 1958 FIT-DNA 1958 FIT 1958 FOBT 1958 Sigmoidoscopy 1958 Diabetes: Foot Exam 1968 Diabetes: Retinopathy Screening 1968 DTaP/Tdap/Td Vaccines (1 - Tdap) 1977 Zoster Vaccines (1 of 2) 2008 Pneumococcal Vaccine: 50+ Years (2 of 2 - PCV) 12/27/2014 12/27/2013 Respiratory Syncytial Virus (RSV) Adult Series (1 - Risk 60-74 years 1-dose series) 2018 Medicare Annual Wellness (AWV) 04/13/2024 03/14/2023 Influenza Vaccine (Season Ended) 2025 12/27/2013 Diabetes: Hemoglobin A1C 10/04/2025 025, 01/03/2025, 03/18/2024 Diabetes: Urine Protein Screening 04/03/2026 04/03/2025 Lipid Panel 04/03/2026 04/03/2025, 01/03/2025, 03/18/2024 HIB Vaccines Aged Out No longer eligi ble based on patient's age to complete this topic HPV Vaccines Aged Out No longer eligi ble based on patient's age to complete this topic Hepatitis A Vaccines Aged Out No long er eligible based on patient's age to complete this topic Hepatitis B Vaccines Aged Out No long er eligible based on patient's age to complete this topic IPV Vaccines Aged Out No longer eligi ble based on patient's age to complete this topic Meningococcal Vaccine Aged Out No [place] eligible based on patient's age to complete this topic Rotavirus Vaccines Aged Out No longer eligible based on patient's age to complete this topic [place] [id number] 09:31:58 Diagnosis Abnormal foot finding - Prim mireya [facility] [id number] 09:31:58 [place] [id number] 09:31:58* Sheeba Aviles, CAROLIN - 04/10/2025 9:00 AM CDT CHIEF COMPLAINT: EXOSTOSIS/BUNION, RIGHT RFC HYPERKERATOSIS, LEFT SUB 2ND METATARSAL HEAD - resolved 01/16/2025 HELOMA MOLLE HAMMERTOE, LEFT MEDIAL 2ND - resolved 12/19/2024 HISTORY OF PRESENT ILLNESS: Patient states hyperkeratosis has resolved and is very satisfied with treatment plan and results Patient states nails are thick yellow elongated, bilateral feet Patient denies pain, infection, injury, open wounds in the bilateral lower extremity Patient states he has not checked his blood sugar and several weeks --- Patient states new concern for hyperkeratosis, left sub 2nd metatarsal head Patient no further concerns at the heloma Molle, left medial 2nd digit Patient states previous debridement was successful at resolving the pain, however has since recurred and therefore requesting repeat debridement Patient currently denies infection, injury, other wounds in the bilateral lower extremity Patient states pain currently rated 2/10 on palpation, left sub 2nd metatarsal head --- Patient states he may have stepped on a nail causing a change in the gait and exacerbating the pain at the medial left 2nd digit Patient denies infection, injury, open wounds in the bilateral lower extremity Patient states pain currently rated 2/10, left medial 2nd digit --- Patient returns for right foot bunion eval, s/p BILATERAL surgical correction (Dr Nick), approximately 2014 Patient states pain during ambulation due to irritation within the shoe gear from the large exostosis at the RIGHT dorsal medial 1st metatarsophalangeal joint Patient currently denies infection, injury, open wounds Patient states pain currently rated 2/10 on palpation, right dorsal medial 1st metatarsal head --- Patient returns for routine pedal evaluation in hopes to avoid complications in the lower extremity due to multiple high risk comorbidities Patient also requesting of x-rays at previous bunion surgery, right foot 1st metatarsophalangeal joint Patient states nails are painful, thick, and elongated. Patient denies infection, injury, wounds Patient states periodic pain with prolonged ambulation at work, right foot 1st metatarsophalangeal joint Patient states most recent fasting blood sugar was tested this morning with a value of 128 mg/dl. PHYSICAL EXAM OF THE LOWER EXTREMITY: Vascular: (-) edema symmetrical to bilateral lower extremity, (-) ecchymosis, (-) erythema 2/4 Dorsal pedis pulse, bilateral 2/4 Posterior tibial pulse, bilateral (+) normal Capillary Refill time (+) varicosities, (-) pedal hair growth Neurological: (+) mixed sensation with 5.07 Bancroft Danika monofilament examination to the most distal lower extremity (+) normal response to hot, cold, sharp, blunted and vibratory sensations. (-) clonus present. Dermatological: (-) hyperkeratosis, left sub 2nd metatarsal head (-) hyperkeratosis, left medial 2nd digit abutting the 1st digit nail (+) scar, dorsal medial RIGHT 1st metatarsophalangeal joint (+) Nails are thick, yellow, elongated. Debrided without complications (+) resolved nail biopsy site, left 2nd digit (-) signs of soft tissue infection, (-) open wounds, (-) macerations (-) abscess (-) ischemic tissue (+) normal temperature when compared to contralateral limb (+) normal color, tugor, and elasticity. Musculoskeletal: (-) pain on palpation, left sub 2nd metatarsal head (+) hammertoe with medial angulation, left 2nd (-) pain on palpation, left medial 2nd digit, (-) pain on palpation at large exostosis, RIGHT dorsal medial 1st metatarsal head (-) pain on palpation through the lower extremity (+) Semi-rigid hammertoe deformities, BILATERAL (-) other gross osseous abnormalities 5/5 muscle strength to extrinsic pedal muscle groups (-) evidence of compartment syndrome, (-) evidence of deep vein thrombosis X-rays bilateral feet 07/20/2024: (+) Large exostosis, right dorsal medial 1st metatarsal head (+) well aligned/corrected bunion deformity (+) hardware intact at the BILATERAL midshaft 1st proximal phalanx X-RAYS BILATERAL FEET 09/03/2024: (+) Hypertrophic exostosis, left medial 2nd proximal interphalangeal joint secondary to arthritis Pathology left 2nd digit nail biopsy 03/28/2023: (+) cladosporium species. ASSESSMENT: EXOSTOSIS/BUNION, RIGHT Onychomycosis, bilateral feet HYPERKERATOSIS, LEFT SUB 2ND METATARSAL HEAD - resolved 01/16/2025 HELOMA MOLLE HAMMERTOE, LEFT MEDIAL 2ND - resolved 12/19/2024 --- Diabetes type 2 with neuropathy. TREATMENT PLAN: - Extensive office visit WITH discussing possible pedal complications associated prolonged and enlarged exostosis - hammertoe - offload with toe spacer - hyperkeratosis - no further debridement indicated, use topical moisturizing cream/ lotion, no bandage indicated - heloma Molle - no further debridement indicated - Nails - DEBRIDED without complications - nail biopsy - biopsy site is resolved therefore no bandage indicated, use topical antifungal - Medication - moisturize feet daily to help prevent ulcerations and xerosis - X-RAYS- ORDERED 04/10/2025 - Vascular - no further intervention indicated palpable pedal pulses, no open wounds, no ischemic tissue. - Edema - compression stockings advised - Shoes - patient educated to obtain diabetic shoes, custom molded inserts - Diabetic management - spent significant time discussing and educating patient about appropriate diabetic management and care for the lower extremity. Patient also advised to follow-up with detailed regimen with PCP - orthotics - patient defers custom and understands risks, patient advised to obtain [id number] -weight bearing - as tolerated in well protective shoes with wide toe box to reduce pressure from painful exostosis - oncology - patient states no acute concerns and patient was cleared for shoulder surgery after abnormal blood values found in preparation for shoulder surgery - RIGHT dorsal medial 1st metatarsal head exostosis, patient defers further surgical intervention since no further concerns - LEFT medial 2nd digit heloma molle - USE TOE SPACERS, secondary to hypertrophic exostosis, may benefit from surgical excision in the future if pain recurs - Return 2 weeks for imaging review and possible surgical planning now the patient's has completed LEFT ankle ORIF at [facility] in [place]) Patient advised to report to my clinic or the emergency room immediately with any questions or concerns. Patient Instructions: Discussion: A detailed discussion was provided to the patient with specific reference to etiology, pathology, alternate treatment options, and prognosis. All risks and complications (including side effects) with each treatment/medication alternative were outlined in detail including but not limited to: Pain, swelling, numbness, loss of function, loss of limb, bleeding, hematoma, scarring, failure to relieve condition, surgery, additional/revisional surgery, reflex sympathetic dystrophy, complex regional pain syndrome, reoccurrence of deformity, joint stiffness, flail toe, bone and/or soft tissue infection, blood clots, pulmonary embolism, possible , delayed or non-healing. X-rays, graphs and drawings were all used to assist with patient comprehension when appropriate. All patients questions were answered and stated they fully understood. No guarantee as to results or outcome of treatment was made. I have discussed with the patient or legally responsible person prior to obtaining consent: the risks, potential benefits and drawbacks, significant alternatives, potential for problems related to recuperation, likelihood of success, and possible results of non-treatment, and the patient or the legally responsible person has agreed to proceed. [facility] [id number] 09:31:58Upcoming Encounters Health Maintenance Due Date Last Done Comments CT Colonography 1958 Colonoscopy 1958 Colorectal Cancer Screening 1958 FIT-DNA 1958 FIT 1958 FOBT 1958 Sigmoidoscopy 1958 Diabetes: Foot Exam 1968 Diabetes: Retinopathy Screening 1968 DTaP/Tdap/Td Vaccines (1 - Tdap) 1977 Zoster Vaccines (1 of 2) 2008 Pneumococcal Vaccine: 50+ Years (2 of 2 - PCV) 12/27/2014 12/27/2013 Respiratory Syncytial Virus (RSV) Adult Series (1 - Risk 60-74 years 1-dose series) 2018 Medicare Annual Wellness (AWV) 04/13/2024 03/14/2023 Influenza Vaccine (Season Ended) 2025 12/27/2013 Diabetes: Hemoglobin A1C 10/04/2025 025, 01/03/2025, 03/18/2024 Diabetes: Urine Protein Screening 04/03/2026 04/03/2025 Lipid Panel 04/03/2026 04/03/2025, 01/03/2025, 03/18/2024 HIB Vaccines Aged Out No longer eligi ble based on patient's age to complete this topic HPV Vaccines Aged Out No longer eligi ble based on patient's age to complete this topic Hepatitis A Vaccines Aged Out No long er eligible based on patient's age to complete this topic Hepatitis B Vaccines Aged Out No long er eligible based on patient's age to complete this topic IPV Vaccines Aged Out No longer eligi ble based on patient's age to complete this topic Meningococcal Vaccine Aged Out No [place] sandy eligible based on patient's age to complete this topic Rotavirus Vaccines Aged Out No longer eligible based on patient's age to complete this topic [id number] 09:31:58 Diagnosis Abnormal foot finding - Prim mireya [id number] 09:31:58 [place] [id number] 10:23:20* Sheeba Aviles, CAROLIN - 01/16/2025 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: EXOSTOSIS/BUNION, RIGHT RFC HYPERKERATOSIS, LEFT SUB 2ND METATARSAL HEAD - resolved 01/16/2025 HELOMA MOLLE HAMMERTOE, LEFT MEDIAL 2ND - resolved 12/19/2024 HISTORY OF PRESENT ILLNESS: Patient states hyperkeratosis has resolved and is very satisfied with treatment plan and results Patient states nails are thick yellow elongated, bilateral feet Patient denies pain, infection, injury, open wounds in the bilateral lower extremity --- Patient states new concern for hyperkeratosis, left sub 2nd metatarsal head Patient no further concerns at the heloma Molle, left medial 2nd digit Patient states previous debridement was successful at resolving the pain, however has since recurred and therefore requesting repeat debridement Patient currently denies infection, injury, other wounds in the bilateral lower extremity Patient states pain currently rated 2/10 on palpation, left sub 2nd metatarsal head --- Patient states he may have stepped on a nail causing a change in the gait and exacerbating the pain at the medial left 2nd digit Patient denies infection, injury, open wounds in the bilateral lower extremity Patient states pain currently rated 2/10, left medial 2nd digit --- Patient returns for right foot bunion eval, s/p BILATERAL surgical correction (Dr Nick), approximately 2014 Patient states pain during ambulation due to irritation within the shoe gear from the large exostosis at the RIGHT dorsal medial 1st metatarsophalangeal joint Patient currently denies infection, injury, open wounds Patient states pain currently rated 2/10 on palpation, right dorsal medial 1st metatarsal head --- Patient returns for routine pedal evaluation in hopes to avoid complications in the lower extremity due to multiple high risk comorbidities Patient also requesting of x-rays at previous bunion surgery, right foot 1st metatarsophalangeal joint Patient states nails are painful, thick, and elongated. Patient denies infection, injury, wounds Patient states periodic pain with prolonged ambulation at work, right foot 1st metatarsophalangeal joint Patient states most recent fasting blood sugar was tested this morning with a value of 128 mg/dl. PHYSICAL EXAM OF THE LOWER EXTREMITY: Vascular: (-) edema symmetrical to bilateral lower extremity, (-) ecchymosis, (-) erythema 2/4 Dorsal pedis pulse, bilateral 2/4 Posterior tibial pulse, bilateral (+) normal Capillary Refill time (+) varicosities, (-) pedal hair growth Neurological: (+) mixed sensation with 5.07 Bancroft Danika monofilament examination to the most distal lower extremity (+) normal response to hot, cold, sharp, blunted and vibratory sensations. (-) clonus present. Dermatological: (-) hyperkeratosis, left sub 2nd metatarsal head (-) hyperkeratosis, left medial 2nd digit abutting the 1st digit nail (+) scar, dorsal medial RIGHT 1st metatarsophalangeal joint (+) Nails are thick, yellow, elongated. Debrided without complications (+) resolved nail biopsy site, left 2nd digit (-) signs of soft tissue infection, (-) open wounds, (-) macerations (-) abscess (-) ischemic tissue (+) normal temperature when compared to contralateral limb (+) normal color, tugor, and elasticity. Musculoskeletal: (-) pain on palpation, left sub 2nd metatarsal head (+) hammertoe with medial angulation, left 2nd (-) pain on palpation, left medial 2nd digit, (-) pain on palpation at large exostosis, RIGHT dorsal medial 1st metatarsal head (-) pain on palpation through the lower extremity (+) Semi-rigid hammertoe deformities, BILATERAL (-) other gross osseous abnormalities 5/5 muscle strength to extrinsic pedal muscle groups (-) evidence of compartment syndrome, (-) evidence of deep vein thrombosis X-rays bilateral feet 07/20/2024: (+) Large exostosis, right dorsal medial 1st metatarsal head (+) well aligned/corrected bunion deformity (+) hardware intact at the BILATERAL midshaft 1st proximal phalanx X-RAYS BILATERAL FEET 09/03/2024: (+) Hypertrophic exostosis, left medial 2nd proximal interphalangeal joint secondary to arthritis Pathology left 2nd digit nail biopsy 03/28/2023: (+) cladosporium species. ASSESSMENT: EXOSTOSIS/BUNION, RIGHT Onychomycosis, bilateral feet HYPERKERATOSIS, LEFT SUB 2ND METATARSAL HEAD - resolved 01/16/2025 HELOMA MOLLE HAMMERTOE, LEFT MEDIAL 2ND - resolved 12/19/2024 --- Diabetes type 2 with neuropathy. TREATMENT PLAN: - Extensive office visit WITH discussing possible pedal complications associated prolonged and enlarged exostosis - hammertoe - offload with toe spacer - HYPERKERATOSIS - no further debridement indicated, use topical moisturizing cream/ lotion, no bandage indicated - heloma Molle - no further debridement indicated - Nails - debrided without complications - nail biopsy - biopsy site is resolved therefore no bandage indicated, use topical antifungal - Medication - moisturize feet daily to help prevent ulcerations and xerosis - [id number] - Vascular - no further intervention indicated palpable pedal pulses, no open wounds, no ischemic tissue. - Edema - compression stockings advised - Shoes - patient educated to obtain diabetic shoes, custom molded inserts - Diabetic management - spent significant time discussing and educating patient about appropriate diabetic management and care for the lower extremity. Patient also advised to follow-up with detailed regimen with PCP - orthotics - patient defers custom and understands risks, patient advised to obtain [id number] -weight bearing - as tolerated in well protective shoes with wide toe box to reduce pressure from painful exostosis - oncology - patient states no acute concerns and patient was cleared for shoulder surgery after abnormal blood values found in preparation for shoulder surgery - RIGHT dorsal medial 1st metatarsal head exostosis, patient defers further surgical intervention since no further concerns - LEFT medial 2nd digit heloma molle - USE TOE SPACERS, secondary to hypertrophic exostosis, may benefit from surgical excision in the future if pain recurs - Return 12 weeks repeat debridement (may consider surgery with needing ankle recon at [facility] in [place]) Patient advised to report to my clinic or the emergency room immediately with any questions or concerns. Patient Instructions: Discussion: A detailed discussion was provided to the patient with specific reference to etiology, pathology, alternate treatment options, and prognosis. All risks and complications (including side effects) with each treatment/medication alternative were outlined in detail including but not limited to: Pain, swelling, numbness, loss of function, loss of limb, bleeding, hematoma, scarring, failure to relieve condition, surgery, additional/revisional surgery, reflex sympathetic dystrophy, complex regional pain syndrome, reoccurrence of deformity, joint stiffness, flail toe, bone and/or soft tissue infection, blood clots, pulmonary embolism, possible , delayed or non-healing. X-rays, graphs and drawings were all used to assist with patient comprehension when appropriate. All patients questions were answered and stated they fully understood. No guarantee as to results or outcome of treatment was made. I have discussed with the patient or legally responsible person prior to obtaining consent: the risks, potential benefits and drawbacks, significant alternatives, potential for problems related to recuperation, likelihood of success, and possible results of non-treatment, and the patient or the legally responsible person has agreed to proceed. [place] [id number] 10:23:20Upcoming Encounters Health Maintenance Due Date Last Done Comments CT Colonography 1958 Colonoscopy 1958 Colorectal Cancer Screening 1958 FIT-DNA 1958 FIT 1958 FOBT 1958 Sigmoidoscopy 1958 Diabetes: Foot Exam 1968 Diabetes: Retinopathy Screening 1968 DTaP/Tdap/Td Vaccines (1 - Tdap) 1977 Diabetes: Urine Protein Screening 1977 Zoster Vaccines (1 of 2) 2008 Pneumococcal Vaccine: 65+ Years (2 of 2 - PCV) 12/27/2014 12/27/2013 Respiratory Syncytial Virus (RSV) or >=60 (1 - Risk 60-74 years 1-dose series) 2018 Annual Physical 12/07/2023 12/07/2022 Medicare Annual Wellness (AWV) 04/13/2024 03/14/2023 Influenza Vaccine (#1) 2024 12/27/2013 Diabetes: Hemoglobin A1C 07/03/2025 025, 03/18/2024 Lipid Panel 01/03/2026 01/03/2025, 03/18/2024 HIB Vaccines Aged Out No longer eligi ble based on patient's age to complete this topic HPV Vaccines Aged Out No longer eligi ble based on patient's age to complete this topic Hepatitis A Vaccines Aged Out No long er eligible based on patient's age to complete this topic Hepatitis B Vaccines Aged Out No long er eligible based on patient's age to complete this topic IPV Vaccines Aged Out No longer eligi ble based on patient's age to complete this topic Meningococcal Vaccine Aged Out No [place] sandy eligible based on patient's age to complete this topic Rotavirus Vaccines Aged Out No longer eligible based on patient's age to complete this topic [id number] 10:23:20 Diagnosis Abnormal foot finding - Prim mireya [facility] [id number] 10:23:20 [facility] [id number] 10:23:20* Sheeba Aviles, DPM - 01/16/2025 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: EXOSTOSIS/BUNION, RIGHT RFC HYPERKERATOSIS, LEFT SUB 2ND METATARSAL HEAD - resolved 01/16/2025 HELOMA MOLLE HAMMERTOE, LEFT MEDIAL 2ND - resolved 12/19/2024 HISTORY OF PRESENT ILLNESS: Patient states hyperkeratosis has resolved and is very satisfied with treatment plan and results Patient states nails are thick yellow elongated, bilateral feet Patient denies pain, infection, injury, open wounds in the bilateral lower extremity --- Patient states new concern for hyperkeratosis, left sub 2nd metatarsal head Patient no further concerns at the heloma Molle, left medial 2nd digit Patient states previous debridement was successful at resolving the pain, however has since recurred and therefore requesting repeat debridement Patient currently denies infection, injury, other wounds in the bilateral lower extremity Patient states pain currently rated 2/10 on palpation, left sub 2nd metatarsal head --- Patient states he may have stepped on a nail causing a change in the gait and exacerbating the pain at the medial left 2nd digit Patient denies infection, injury, open wounds in the bilateral lower extremity Patient states pain currently rated 2/10, left medial 2nd digit --- Patient returns for right foot bunion eval, s/p BILATERAL surgical correction (Dr Nick), approximately 2014 Patient states pain during ambulation due to irritation within the shoe gear from the large exostosis at the RIGHT dorsal medial 1st metatarsophalangeal joint Patient currently denies infection, injury, open wounds Patient states pain currently rated 2/10 on palpation, right dorsal medial 1st metatarsal head --- Patient returns for routine pedal evaluation in hopes to avoid complications in the lower extremity due to multiple high risk comorbidities Patient also requesting of x-rays at previous bunion surgery, right foot 1st metatarsophalangeal joint Patient states nails are painful, thick, and elongated. Patient denies infection, injury, wounds Patient states periodic pain with prolonged ambulation at work, right foot 1st metatarsophalangeal joint Patient states most recent fasting blood sugar was tested this morning with a value of 128 mg/dl. PHYSICAL EXAM OF THE LOWER EXTREMITY: Vascular: (-) edema symmetrical to bilateral lower extremity, (-) ecchymosis, (-) erythema 2/4 Dorsal pedis pulse, bilateral 2/4 Posterior tibial pulse, bilateral (+) normal Capillary Refill time (+) varicosities, (-) pedal hair growth Neurological: (+) mixed sensation with 5.07 Bancroft Danika monofilament examination to the most distal lower extremity (+) normal response to hot, cold, sharp, blunted and vibratory sensations. (-) clonus present. Dermatological: (-) hyperkeratosis, left sub 2nd metatarsal head (-) hyperkeratosis, left medial 2nd digit abutting the 1st digit nail (+) scar, dorsal medial RIGHT 1st metatarsophalangeal joint (+) Nails are thick, yellow, elongated. Debrided without complications (+) resolved nail biopsy site, left 2nd digit (-) signs of soft tissue infection, (-) open wounds, (-) macerations (-) abscess (-) ischemic tissue (+) normal temperature when compared to contralateral limb (+) normal color, tugor, and elasticity. Musculoskeletal: (-) pain on palpation, left sub 2nd metatarsal head (+) hammertoe with medial angulation, left 2nd (-) pain on palpation, left medial 2nd digit, (-) pain on palpation at large exostosis, RIGHT dorsal medial 1st metatarsal head (-) pain on palpation through the lower extremity (+) Semi-rigid hammertoe deformities, BILATERAL (-) other gross osseous abnormalities 5/5 muscle strength to extrinsic pedal muscle groups (-) evidence of compartment syndrome, (-) evidence of deep vein thrombosis X-rays bilateral feet 07/20/2024: (+) Large exostosis, right dorsal medial 1st metatarsal head (+) well aligned/corrected bunion deformity (+) hardware intact at the BILATERAL midshaft 1st proximal phalanx X-RAYS BILATERAL FEET 09/03/2024: (+) Hypertrophic exostosis, left medial 2nd proximal interphalangeal joint secondary to arthritis Pathology left 2nd digit nail biopsy 03/28/2023: (+) cladosporium species. ASSESSMENT: EXOSTOSIS/BUNION, RIGHT Onychomycosis, bilateral feet HYPERKERATOSIS, LEFT SUB 2ND METATARSAL HEAD - resolved 01/16/2025 HELOMA MOLLE HAMMERTOE, LEFT MEDIAL 2ND - resolved 12/19/2024 --- Diabetes type 2 with neuropathy. TREATMENT PLAN: - Extensive office visit WITH discussing possible pedal complications associated prolonged and enlarged exostosis - hammertoe - offload with toe spacer - HYPERKERATOSIS - no further debridement indicated, use topical moisturizing cream/ lotion, no bandage indicated - heloma Molle - no further debridement indicated - Nails - debrided without complications - nail biopsy - biopsy site is resolved therefore no bandage indicated, use topical antifungal - Medication - moisturize feet daily to help prevent ulcerations and xerosis - [id number] - Vascular - no further intervention indicated palpable pedal pulses, no open wounds, no ischemic tissue. - Edema - compression stockings advised - Shoes - patient educated to obtain diabetic shoes, custom molded inserts - Diabetic management - spent significant time discussing and educating patient about appropriate diabetic management and care for the lower extremity. Patient also advised to follow-up with detailed regimen with PCP - orthotics - patient defers custom and understands risks, patient advised to obtain [id number] -weight bearing - as tolerated in well protective shoes with wide toe box to reduce pressure from painful exostosis - oncology - patient states no acute concerns and patient was cleared for shoulder surgery after abnormal blood values found in preparation for shoulder surgery - RIGHT dorsal medial 1st metatarsal head exostosis, patient defers further surgical intervention since no further concerns - LEFT medial 2nd digit heloma molle - USE TOE SPACERS, secondary to hypertrophic exostosis, may benefit from surgical excision in the future if pain recurs - Return 12 weeks repeat debridement (may consider surgery with needing ankle recon at [facility] in [place]) Patient advised to report to my clinic or the emergency room immediately with any questions or concerns. Patient Instructions: Discussion: A detailed discussion was provided to the patient with specific reference to etiology, pathology, alternate treatment options, and prognosis. All risks and complications (including side effects) with each treatment/medication alternative were outlined in detail including but not limited to: Pain, swelling, numbness, loss of function, loss of limb, bleeding, hematoma, scarring, failure to relieve condition, surgery, additional/revisional surgery, reflex sympathetic dystrophy, complex regional pain syndrome, reoccurrence of deformity, joint stiffness, flail toe, bone and/or soft tissue infection, blood clots, pulmonary embolism, possible , delayed or non-healing. X-rays, graphs and drawings were all used to assist with patient comprehension when appropriate. All patients questions were answered and stated they fully understood. No guarantee as to results or outcome of treatment was made. I have discussed with the patient or legally responsible person prior to obtaining consent: the risks, potential benefits and drawbacks, significant alternatives, potential for problems related to recuperation, likelihood of success, and possible results of non-treatment, and the patient or the legally responsible person has agreed to proceed. [facility]2025-03-05 10:23:20Upcoming Encounters Health Maintenance Due Date Last Done Comments CT Colonography 1958 Colonoscopy 1958 Colorectal Cancer Screening 1958 FIT-DNA 1958 FIT 1958 FOBT 1958 Sigmoidoscopy 1958 Diabetes: Foot Exam 1968 Diabetes: Retinopathy Screening 1968 DTaP/Tdap/Td Vaccines (1 - Tdap) 1977 Diabetes: Urine Protein Screening 1977 Zoster Vaccines (1 of 2) 2008 Pneumococcal Vaccine: 65+ Years (2 of 2 - PCV) 12/27/2014 12/27/2013 Respiratory Syncytial Virus (RSV) or >=60 (1 - Risk 60-74 years 1-dose series) 2018 Annual Physical 12/07/2023 12/07/2022 Medicare Annual Wellness (AWV) 04/13/2024 03/14/2023 Influenza Vaccine (#1) 2024 12/27/2013 Diabetes: Hemoglobin A1C 07/03/2025 025, 03/18/2024 Lipid Panel 01/03/2026 01/03/2025, 03/18/2024 HIB Vaccines Aged Out No longer eligi ble based on patient's age to complete this topic HPV Vaccines Aged Out No longer eligi ble based on patient's age to complete this topic Hepatitis A Vaccines Aged Out No long er eligible based on patient's age to complete this topic Hepatitis B Vaccines Aged Out No long er eligible based on patient's age to complete this topic IPV Vaccines Aged Out No longer eligi ble based on patient's age to complete this topic Meningococcal Vaccine Aged Out No [place] sandy eligible based on patient's age to complete this topic Rotavirus Vaccines Aged Out No longer eligible based on patient's age to complete this topic [place] [id number] 10:23:20 Diagnosis Abnormal foot finding - [facility]2025-03-05 10:23:20 [place] [id number] 10:38:24 Diagnosis Abnormal foot finding - [facility]2025-02-05 10:38:24 [place] [id number] 10:38:24* Sheeba Aviles, CAROLIN - 12/19/2024 9:00 AM ACCOUNT COLLECTOR CHIEF COMPLAINT: HYPERKERATOSIS, LEFT SUB 2ND METATARSAL HEAD HELOMA MOLLE HAMMERTOE, LEFT MEDIAL 2ND - resolved 12/19/2024 EXOSTOSIS/BUNION, RIGHT RFC HISTORY OF PRESENT ILLNESS: Patient states new concern for hyperkeratosis, left sub 2nd metatarsal head Patient no further concerns at the heloma Molle, left medial 2nd digit Patient states previous debridement was successful at resolving the pain, however has since recurred and therefore requesting repeat debridement Patient currently denies infection, injury, other wounds in the bilateral lower extremity Patient states pain currently rated 2/10 on palpation, left sub 2nd metatarsal head --- Patient states he may have stepped on a nail causing a change in the gait and exacerbating the pain at the medial left 2nd digit Patient denies infection, injury, open wounds in the bilateral lower extremity Patient states pain currently rated 2/10, left medial 2nd digit --- Patient returns for right foot bunion eval, s/p BILATERAL surgical correction (Dr Nick), approximately 2014 Patient states pain during ambulation due to irritation within the shoe gear from the large exostosis at the RIGHT dorsal medial 1st metatarsophalangeal joint Patient currently denies infection, injury, open wounds Patient states pain currently rated 2/10 on palpation, right dorsal medial 1st metatarsal head --- Patient returns for routine pedal evaluation in hopes to avoid complications in the lower extremity due to multiple high risk comorbidities Patient also requesting of x-rays at previous bunion surgery, right foot 1st metatarsophalangeal joint Patient states nails are painful, thick, and elongated. Patient denies infection, injury, wounds Patient states periodic pain with prolonged ambulation at work, right foot 1st metatarsophalangeal joint Patient states most recent fasting blood sugar was tested this morning with a value of 128 mg/dl. PHYSICAL EXAM OF THE LOWER EXTREMITY: Vascular: (-) edema symmetrical to bilateral lower extremity, (-) ecchymosis, (-) erythema 2/4 Dorsal pedis pulse, bilateral 2/4 Posterior tibial pulse, bilateral (+) normal Capillary Refill time (+) varicosities, (-) pedal hair growth Neurological: (+) mixed sensation with 5.07 Bancroft Danika monofilament examination to the most distal lower extremity (+) normal response to hot, cold, sharp, blunted and vibratory sensations. (-) clonus present. Dermatological: (+) hyperkeratosis, left sub 2nd metatarsal head (-) hyperkeratosis, left medial 2nd digit abutting the 1st digit nail (+) scar, dorsal medial RIGHT 1st metatarsophalangeal joint (+) Nails are thick, yellow, elongated. Debrided without complications (+) resolved nail biopsy site, left 2nd digit (-) signs of soft tissue infection, (-) open wounds, (-) macerations (-) abscess (-) ischemic tissue (+) normal temperature when compared to contralateral limb (+) normal color, tugor, and elasticity. Musculoskeletal: (+) pain on palpation, much improved after reviewing, left sub 2nd metatarsal head (+) hammertoe with medial angulation, left 2nd (+) pain on palpation, left medial 2nd digit, resolved after debridement (-) pain on palpation at large exostosis, RIGHT dorsal medial 1st metatarsal head (-) pain on palpation through the lower extremity (+) Semi-rigid hammertoe deformities, BILATERAL (-) other gross osseous abnormalities 5/5 muscle strength to extrinsic pedal muscle groups (-) evidence of compartment syndrome, (-) evidence of deep vein thrombosis X-rays bilateral feet 07/20/2024: (+) Large exostosis, right dorsal medial 1st metatarsal head (+) well aligned/corrected bunion deformity (+) hardware intact at the BILATERAL midshaft 1st proximal phalanx X-RAYS BILATERAL FEET 09/03/2024: (+) Hypertrophic exostosis, left medial 2nd proximal interphalangeal joint secondary to arthritis Pathology left 2nd digit nail biopsy 03/28/2023: (+) cladosporium species. ASSESSMENT: HYPERKERATOSIS, LEFT SUB 2ND METATARSAL HEAD HELOMA MOLLE HAMMERTOE, LEFT MEDIAL 2ND - resolved 12/19/2024 EXOSTOSIS/BUNION, RIGHT Onychomycosis, bilateral feet --- Diabetes type 2 with neuropathy. TREATMENT PLAN: - Extensive office visit WITH discussing possible pedal complications associated prolonged and enlarged exostosis - hammertoe - offload with toe spacer - HYPERKERATOSIS - debrided without complications, provided immediate relief of pain, no bandage indicated - heloma Molle - no further debridement indicated - Nails - debrided without complications - nail biopsy - biopsy site is resolved therefore no bandage indicated, use topical antifungal - Medication - moisturize feet daily to help prevent ulcerations and xerosis - [id number] - Vascular - no further intervention indicated palpable pedal pulses, no open wounds, no ischemic tissue. - Edema - compression stockings advised - Shoes - patient educated to obtain diabetic shoes, custom molded inserts - Diabetic management - spent significant time discussing and educating patient about appropriate diabetic management and care for the lower extremity. Patient also advised to follow-up with detailed regimen with PCP - orthotics - patient defers custom and understands risks, patient advised to obtain [id number] -weight bearing - as tolerated in well protective shoes with wide toe box to reduce pressure from painful exostosis - oncology - patient states no acute concerns and patient was cleared for shoulder surgery after abnormal blood values found in preparation for shoulder surgery - RIGHT dorsal medial 1st metatarsal head exostosis, patient defers further surgical intervention since no further concerns - LEFT medial 2nd digit heloma molle - USE TOE SPACERS, secondary to hypertrophic exostosis, may benefit from surgical excision in the future if pain recurs - Return 8 weeks repeat debridement (may consider surgery with needing ankle recon at [facility] in [place]) Patient advised to report to my clinic or the emergency room immediately with any questions or concerns. Patient Instructions: Discussion: A detailed discussion was provided to the patient with specific reference to etiology, pathology, alternate treatment options, and prognosis. All risks and complications (including side effects) with each treatment/medication alternative were outlined in detail including but not limited to: Pain, swelling, numbness, loss of function, loss of limb, bleeding, hematoma, scarring, failure to relieve condition, surgery, additional/revisional surgery, reflex sympathetic dystrophy, complex regional pain syndrome, reoccurrence of deformity, joint stiffness, flail toe, bone and/or soft tissue infection, blood clots, pulmonary embolism, possible , delayed or non-healing. X-rays, graphs and drawings were all used to assist with patient comprehension when appropriate. All patients questions were answered and stated they fully understood. No guarantee as to results or outcome of treatment was made. I have discussed with the patient or legally responsible person prior to obtaining consent: the risks, potential benefits and drawbacks, significant alternatives, potential for problems related to recuperation, likelihood of success, and possible results of non-treatment, and the patient or the legally responsible person has agreed to proceed. [id number] 10:38:24 [id number] 10:38:24 Diagnosis Abnormal foot finding - Prim mireya [id number] 10:38:24 [facility] [id number] 10:38:24* Sheeba Aviles DPM - 12/19/2024 9:00 AM ACCOUNT COLLECTOR CHIEF COMPLAINT: HYPERKERATOSIS, LEFT SUB 2ND METATARSAL HEAD HELOMA MOLLE HAMMERTOE, LEFT MEDIAL 2ND - resolved 12/19/2024 EXOSTOSIS/BUNION, RIGHT [facility] HISTORY OF PRESENT ILLNESS: Patient states new concern for hyperkeratosis, left sub 2nd metatarsal head Patient no further concerns at the heloma Molle, left medial 2nd digit Patient states previous debridement was successful at resolving the pain, however has since recurred and therefore requesting repeat debridement Patient currently denies infection, injury, other wounds in the bilateral lower extremity Patient states pain currently rated 2/10 on palpation, left sub 2nd metatarsal head --- Patient states he may have stepped on a nail causing a change in the gait and exacerbating the pain at the medial left 2nd digit Patient denies infection, injury, open wounds in the bilateral lower extremity Patient states pain currently rated 2/10, left medial 2nd digit --- Patient returns for right foot bunion eval, s/p BILATERAL surgical correction (Dr Nick), approximately 2014 Patient states pain during ambulation due to irritation within the shoe gear from the large exostosis at the RIGHT dorsal medial 1st metatarsophalangeal joint Patient currently denies infection, injury, open wounds Patient states pain currently rated 2/10 on palpation, right dorsal medial 1st metatarsal head --- Patient returns for routine pedal evaluation in hopes to avoid complications in the lower extremity due to multiple high risk comorbidities Patient also requesting of x-rays at previous bunion surgery, right foot 1st metatarsophalangeal joint Patient states nails are painful, thick, and elongated. Patient denies infection, injury, wounds Patient states periodic pain with prolonged ambulation at work, right foot 1st metatarsophalangeal joint Patient states most recent fasting blood sugar was tested this morning with a value of 128 mg/dl. PHYSICAL EXAM OF THE LOWER EXTREMITY: Vascular: (-) edema symmetrical to bilateral lower extremity, (-) ecchymosis, (-) erythema 2/4 Dorsal pedis pulse, bilateral 2/4 Posterior tibial pulse, bilateral (+) normal Capillary Refill time (+) varicosities, (-) pedal hair growth Neurological: (+) mixed sensation with 5.07 Bancroft Danika monofilament examination to the most distal lower extremity (+) normal response to hot, cold, sharp, blunted and vibratory sensations. (-) clonus present. Dermatological: (+) hyperkeratosis, left sub 2nd metatarsal head (-) hyperkeratosis, left medial 2nd digit abutting the 1st digit nail (+) scar, dorsal medial RIGHT 1st metatarsophalangeal joint (+) Nails are thick, yellow, elongated. Debrided without complications (+) resolved nail biopsy site, left 2nd digit (-) signs of soft tissue infection, (-) open wounds, (-) macerations (-) abscess (-) ischemic tissue (+) normal temperature when compared to contralateral limb (+) normal color, tugor, and elasticity. Musculoskeletal: (+) pain on palpation, much improved after reviewing, left sub 2nd metatarsal head (+) hammertoe with medial angulation, left 2nd (+) pain on palpation, left medial 2nd digit, resolved after debridement (-) pain on palpation at large exostosis, RIGHT dorsal medial 1st metatarsal head (-) pain on palpation through the lower extremity (+) Semi-rigid hammertoe deformities, BILATERAL (-) other gross osseous abnormalities 5/5 muscle strength to extrinsic pedal muscle groups (-) evidence of compartment syndrome, (-) evidence of deep vein thrombosis X-rays bilateral feet 07/20/2024: (+) Large exostosis, right dorsal medial 1st metatarsal head (+) well aligned/corrected bunion deformity (+) hardware intact at the BILATERAL midshaft 1st proximal phalanx X-RAYS BILATERAL FEET 09/03/2024: (+) Hypertrophic exostosis, left medial 2nd proximal interphalangeal joint secondary to arthritis Pathology left 2nd digit nail biopsy 03/28/2023: (+) cladosporium species. ASSESSMENT: HYPERKERATOSIS, LEFT SUB 2ND METATARSAL HEAD HELOMA MOLLE HAMMERTOE, LEFT MEDIAL 2ND - resolved 12/19/2024 EXOSTOSIS/BUNION, RIGHT Onychomycosis, bilateral feet --- Diabetes type 2 with neuropathy. TREATMENT PLAN: - Extensive office visit WITH discussing possible pedal complications associated prolonged and enlarged exostosis - hammertoe - offload with toe spacer - HYPERKERATOSIS - debrided without complications, provided immediate relief of pain, no bandage indicated - heloma Molle - no further debridement indicated - Nails - debrided without complications - nail biopsy - biopsy site is resolved therefore no bandage indicated, use topical antifungal - Medication - moisturize feet daily to help prevent ulcerations and xerosis - [id number] - Vascular - no further intervention indicated palpable pedal pulses, no open wounds, no ischemic tissue. - Edema - compression stockings advised - Shoes - patient educated to obtain diabetic shoes, custom molded inserts - Diabetic management - spent significant time discussing and educating patient about appropriate diabetic management and care for the lower extremity. Patient also advised to follow-up with detailed regimen with PCP - orthotics - patient defers custom and understands risks, patient advised to obtain [id number] -weight bearing - as tolerated in well protective shoes with wide toe box to reduce pressure from painful exostosis - oncology - patient states no acute concerns and patient was cleared for shoulder surgery after abnormal blood values found in preparation for shoulder surgery - RIGHT dorsal medial 1st metatarsal head exostosis, patient defers further surgical intervention since no further concerns - LEFT medial 2nd digit heloma molle - USE TOE SPACERS, secondary to hypertrophic exostosis, may benefit from surgical excision in the future if pain recurs - Return 8 weeks repeat debridement (may consider surgery with needing ankle recon at [facility] in [place]) Patient advised to report to my clinic or the emergency room immediately with any questions or concerns. Patient Instructions: Discussion: A detailed discussion was provided to the patient with specific reference to etiology, pathology, alternate treatment options, and prognosis. All risks and complications (including side effects) with each treatment/medication alternative were outlined in detail including but not limited to: Pain, swelling, numbness, loss of function, loss of limb, bleeding, hematoma, scarring, failure to relieve condition, surgery, additional/revisional surgery, reflex sympathetic dystrophy, complex regional pain syndrome, reoccurrence of deformity, joint stiffness, flail toe, bone and/or soft tissue infection, blood clots, pulmonary embolism, possible , delayed or non-healing. X-rays, graphs and drawings were all used to assist with patient comprehension when appropriate. All patients questions were answered and stated they fully understood. No guarantee as to results or outcome of treatment was made. I have discussed with the patient or legally responsible person prior to obtaining consent: the risks, potential benefits and drawbacks, significant alternatives, potential for problems related to recuperation, likelihood of success, and possible results of non-treatment, and the patient or the legally responsible person has agreed to proceed. UNT COLLECTOR [facility] [id number] 10:38:24 [facility] [id number] 09:45:16* Sheeba Aviles DPM - 10/08/2024 9:00 AM ACCOUNT COLLECTOR CHIEF COMPLAINT: RACHELOMA KYLE HAMMERTOE, LEFT MEDIAL 2ND EXOSTOSIS/BUNION, RIGHT C HISTORY OF PRESENT ILLNESS: Patient requesting further evaluation of painful racheloma Mollconnie, left medial 2nd digit Patient states previous debridement was successful at resolving the pain, however has since recurred and therefore requesting repeat debridement Patient currently denies infection, injury, other wounds in the bilateral lower extremity Patient states pain currently rated 2/10 on palpation, left medial 2nd digit --- Patient states he may have stepped on a nail causing a change in the gait and exacerbating the pain at the medial left 2nd digit Patient denies infection, injury, open wounds in the bilateral lower extremity Patient states pain currently rated 2/10, left medial 2nd digit --- Patient returns for right foot bunion eval, s/p BILATERAL surgical correction (Dr Nick), approximately 2014 Patient states pain during ambulation due to irritation within the shoe gear from the large exostosis at the RIGHT dorsal medial 1st metatarsophalangeal joint Patient currently denies infection, injury, open wounds Patient states pain currently rated 2/10 on palpation, right dorsal medial 1st metatarsal head --- Patient returns for routine pedal evaluation in hopes to avoid complications in the lower extremity due to multiple high risk comorbidities Patient also requesting of x-rays at previous bunion surgery, right foot 1st metatarsophalangeal joint Patient states nails are painful, thick, and elongated. Patient denies infection, injury, wounds Patient states periodic pain with prolonged ambulation at work, right foot 1st metatarsophalangeal joint Patient states most recent fasting blood sugar was tested this morning with a value of 128 mg/dl. PHYSICAL EXAM OF THE LOWER EXTREMITY: Vascular: (-) edema symmetrical to bilateral lower extremity, (-) ecchymosis, (-) erythema 2/4 Dorsal pedis pulse, bilateral 2/4 Posterior tibial pulse, bilateral (+) normal Capillary Refill time (+) varicosities, (-) pedal hair growth Neurological: (+) mixed sensation with 5.07 Bancroft Danika monofilament examination to the most distal lower extremity (+) normal response to hot, cold, sharp, blunted and vibratory sensations. (-) clonus present. Dermatological: (+) hyperkeratosis, left medial 2nd digit abutting the 1st digit nail (+) scar, dorsal medial RIGHT 1st metatarsophalangeal joint (+) Nails are thick, yellow, elongated. Debrided without complications (+) resolved nail biopsy site, left 2nd digit (-) signs of soft tissue infection, (-) open wounds, (-) macerations (-) abscess (-) ischemic tissue (+) normal temperature when compared to contralateral limb (+) normal color, tugor, and elasticity. Musculoskeletal: (+) hammertoe with medial angulation, left 2nd (+) pain on palpation, left medial 2nd digit, resolved after debridement (-) pain on palpation at large exostosis, RIGHT dorsal medial 1st metatarsal head (-) pain on palpation through the lower extremity (+) Semi-rigid hammertoe deformities, BILATERAL (-) other gross osseous abnormalities 5/5 muscle strength to extrinsic pedal muscle groups (-) evidence of compartment syndrome, (-) evidence of deep vein thrombosis X-rays bilateral feet 07/20/2024: (+) Large exostosis, right dorsal medial 1st metatarsal head (+) well aligned/corrected bunion deformity (+) hardware intact at the BILATERAL midshaft 1st proximal phalanx X-RAYS BILATERAL FEET 09/03/2024: (+) Hypertrophic exostosis, left medial 2nd proximal interphalangeal joint secondary to arthritis Pathology left 2nd digit nail biopsy 03/28/2023: (+) cladosporium species. ASSESSMENT: Hammertoe with heloma Molle, left medial 2nd digit Exostosis /Bunion, right Onychomycosis, bilateral feet --- Diabetes type 2 with neuropathy. TREATMENT PLAN: - Extensive office visit discussing possible pedal complications associated prolonged and enlarged exostosis - hammertoe - offload with toe spacer - heloma Molle - debrided without complications, provided immediate relief of pain, no bandage indicated - Nails - debrided without complications - nail biopsy - biopsy site is resolved therefore no bandage indicated, use topical antifungal - Medication - moisturize feet daily to help prevent ulcerations and xerosis - [id number] - Vascular - no further intervention indicated palpable pedal pulses, no open wounds, no ischemic tissue. - Edema - compression stockings advised - Shoes - patient educated to obtain diabetic shoes, custom molded inserts - Diabetic management - spent significant time discussing and educating patient about appropriate diabetic management and care for the lower extremity. Patient also advised to follow-up with detailed regimen with PCP - orthotics - patient defers custom and understands risks, patient advised to obtain [id number] -weight bearing - as tolerated in well protective shoes with wide toe box to reduce pressure from painful exostosis - oncology - patient states no acute concerns and patient was cleared for shoulder surgery after abnormal blood values found in preparation for shoulder surgery - RIGHT dorsal medial 1st metatarsal head exostosis, patient defers further surgical intervention since no further concerns - LEFT medial 2nd digit heloma molle - USE TOE SPACERS, secondary to hypertrophic exostosis, may benefit from surgical excision in the future if pain recurs - Return 4 weeks repeat debridement (may consider surgery with needing ankle recon at [facility] in [place]) Patient advised to report to my clinic or the emergency room immediately with any questions or concerns. Patient Instructions: Discussion: A detailed discussion was provided to the patient with specific reference to etiology, pathology, alternate treatment options, and prognosis. All risks and complications (including side effects) with each treatment/medication alternative were outlined in detail including but not limited to: Pain, swelling, numbness, loss of function, loss of limb, bleeding, hematoma, scarring, failure to relieve condition, surgery, additional/revisional surgery, reflex sympathetic dystrophy, complex regional pain syndrome, reoccurrence of deformity, joint stiffness, flail toe, bone and/or soft tissue infection, blood clots, pulmonary embolism, possible , delayed or non-healing. X-rays, graphs and drawings were all used to assist with patient comprehension when appropriate. All patients questions were answered and stated they fully understood. No guarantee as to results or outcome of treatment was made. I have discussed with the patient or legally responsible person prior to obtaining consent: the risks, potential benefits and drawbacks, significant alternatives, potential for problems related to recuperation, likelihood of success, and possible results of non-treatment, and the patient or the legally responsible person has agreed to proceed. [place] [id number] 09:45:16Upcoming Encounters Health Maintenance Due Date Last Done Comments CT Colonography 1958 Colonoscopy 1958 Colorectal Cancer Screening 1958 FIT-DNA 1958 FIT 1958 FOBT 1958 Sigmoidoscopy 1958 Diabetes: Foot Exam 1968 Diabetes: Retinopathy Screening 1968 DTaP/Tdap/Td Vaccines (1 - Tdap) 1977 Diabetes: Urine Protein Screening 1977 Zoster Vaccines (1 of 2) 2008 Pneumococcal Vaccine: 65+ Ye ars (2 of 2 - PCV) 12/27/2014 12/27/2013 Respiratory Syncytial Virus (RSV) or >=60 (1 - Risk 60-74 years 1-dose series) 2018 Annual Physical 12/07/2023 12/07/2022 Medicare Annual Wellness (AWV) 04/13/2024 03/14/2023 Influenza Vaccine (#1) 2024 12/27/2013 Diabetes: Hemoglobin A1C 09/18/2024 03/18/2024 Lipid Panel 03/18/2025 03/18/2024 HIB Vaccines Aged Out No longer eligi ble based on patient's age to complete this topic HPV Vaccines Aged Out No longer eligi ble based on patient's age to complete this topic Hepatitis A Vaccines Aged Out No long er eligible based on patient's age to complete this topic Hepatitis B Vaccines Aged Out No long er eligible based on patient's age to complete this topic IPV Vaccines Aged Out No longer eligi ble based on patient's age to complete this topic Meningococcal Vaccine Aged Out No [place] eligible based on patient's age to complete this topic Rotavirus Vaccines Aged Out No longer eligible based on patient's age to complete this topic [facility] [id number] 09:45:16 Diagnosis Abnormal foot finding - Prim mireya [facility] [id number] 09:45:16 [facility] [id number] 09:45:16* Sheeba Aviles, CAROLIN - 10/08/2024 9:00 AM ACCOUNT COLLECTOR CHIEF COMPLAINT: HELOMA KEVANE HAMMERTOE, LEFT MEDIAL 2ND EXOSTOSIS/BUNION, RIGHT RFC HISTORY OF PRESENT ILLNESS: Patient requesting further evaluation of painful heloma Molle, left medial 2nd digit Patient states previous debridement was successful at resolving the pain, however has since recurred and therefore requesting repeat debridement Patient currently denies infection, injury, other wounds in the bilateral lower extremity Patient states pain currently rated 2/10 on palpation, left medial 2nd digit --- Patient states he may have stepped on a nail causing a change in the gait and exacerbating the pain at the medial left 2nd digit Patient denies infection, injury, open wounds in the bilateral lower extremity Patient states pain currently rated 2/10, left medial 2nd digit --- Patient returns for right foot bunion eval, s/p BILATERAL surgical correction (Dr Nick), approximately 2014 Patient states pain during ambulation due to irritation within the shoe gear from the large exostosis at the RIGHT dorsal medial 1st metatarsophalangeal joint Patient currently denies infection, injury, open wounds Patient states pain currently rated 2/10 on palpation, right dorsal medial 1st metatarsal head --- Patient returns for routine pedal evaluation in hopes to avoid complications in the lower extremity due to multiple high risk comorbidities Patient also requesting of x-rays at previous bunion surgery, right foot 1st metatarsophalangeal joint Patient states nails are painful, thick, and elongated. Patient denies infection, injury, wounds Patient states periodic pain with prolonged ambulation at work, right foot 1st metatarsophalangeal joint Patient states most recent fasting blood sugar was tested this morning with a value of 128 mg/dl. PHYSICAL EXAM OF THE LOWER EXTREMITY: Vascular: (-) edema symmetrical to bilateral lower extremity, (-) ecchymosis, (-) erythema 2/4 Dorsal pedis pulse, bilateral 2/4 Posterior tibial pulse, bilateral (+) normal Capillary Refill time (+) varicosities, (-) pedal hair growth Neurological: (+) mixed sensation with 5.07 Bancroft Danika monofilament examination to the most distal lower extremity (+) normal response to hot, cold, sharp, blunted and vibratory sensations. (-) clonus present. Dermatological: (+) hyperkeratosis, left medial 2nd digit abutting the 1st digit nail (+) scar, dorsal medial RIGHT 1st metatarsophalangeal joint (+) Nails are thick, yellow, elongated. Debrided without complications (+) resolved nail biopsy site, left 2nd digit (-) signs of soft tissue infection, (-) open wounds, (-) macerations (-) abscess (-) ischemic tissue (+) normal temperature when compared to contralateral limb (+) normal color, tugor, and elasticity. Musculoskeletal: (+) hammertoe with medial angulation, left 2nd (+) pain on palpation, left medial 2nd digit, resolved after debridement (-) pain on palpation at large exostosis, RIGHT dorsal medial 1st metatarsal head (-) pain on palpation through the lower extremity (+) Semi-rigid hammertoe deformities, BILATERAL (-) other gross osseous abnormalities 5/5 muscle strength to extrinsic pedal muscle groups (-) evidence of compartment syndrome, (-) evidence of deep vein thrombosis X-rays bilateral feet 07/20/2024: (+) Large exostosis, right dorsal medial 1st metatarsal head (+) well aligned/corrected bunion deformity (+) hardware intact at the BILATERAL midshaft 1st proximal phalanx X-RAYS BILATERAL FEET 09/03/2024: (+) Hypertrophic exostosis, left medial 2nd proximal interphalangeal joint secondary to arthritis Pathology left 2nd digit nail biopsy 03/28/2023: (+) cladosporium species. ASSESSMENT: Hammertoe with heloma Molle, left medial 2nd digit Exostosis /Bunion, right Onychomycosis, bilateral feet --- Diabetes type 2 with neuropathy. TREATMENT PLAN: - Extensive office visit discussing possible pedal complications associated prolonged and enlarged exostosis - hammertoe - offload with toe spacer - heloma Molle - debrided without complications, provided immediate relief of pain, no bandage indicated - Nails - debrided without complications - nail biopsy - biopsy site is resolved therefore no bandage indicated, use topical antifungal - Medication - moisturize feet daily to help prevent ulcerations and xerosis - [id number] - Vascular - no further intervention indicated palpable pedal pulses, no open wounds, no ischemic tissue. - Edema - compression stockings advised - Shoes - patient educated to obtain diabetic shoes, custom molded inserts - Diabetic management - spent significant time discussing and educating patient about appropriate diabetic management and care for the lower extremity. Patient also advised to follow-up with detailed regimen with PCP - orthotics - patient defers custom and understands risks, patient advised to obtain [id number] -weight bearing - as tolerated in well protective shoes with wide toe box to reduce pressure from painful exostosis - oncology - patient states no acute concerns and patient was cleared for shoulder surgery after abnormal blood values found in preparation for shoulder surgery - RIGHT dorsal medial 1st metatarsal head exostosis, patient defers further surgical intervention since no further concerns - LEFT medial 2nd digit heloma molle - USE TOE SPACERS, secondary to hypertrophic exostosis, may benefit from surgical excision in the future if pain recurs - Return 4 weeks repeat debridement (may consider surgery with needing ankle recon at [facility] in [place]) Patient advised to report to my clinic or the emergency room immediately with any questions or concerns. Patient Instructions: Discussion: A detailed discussion was provided to the patient with specific reference to etiology, pathology, alternate treatment options, and prognosis. All risks and complications (including side effects) with each treatment/medication alternative were outlined in detail including but not limited to: Pain, swelling, numbness, loss of function, loss of limb, bleeding, hematoma, scarring, failure to relieve condition, surgery, additional/revisional surgery, reflex sympathetic dystrophy, complex regional pain syndrome, reoccurrence of deformity, joint stiffness, flail toe, bone and/or soft tissue infection, blood clots, pulmonary embolism, possible , delayed or non-healing. X-rays, graphs and drawings were all used to assist with patient comprehension when appropriate. All patients questions were answered and stated they fully understood. No guarantee as to results or outcome of treatment was made. I have discussed with the patient or legally responsible person prior to obtaining consent: the risks, potential benefits and drawbacks, significant alternatives, potential for problems related to recuperation, likelihood of success, and possible results of non-treatment, and the patient or the legally responsible person has agreed to proceed. [place] [id number] 09:45:16Upcoming Encounters Health Maintenance Due Date Last Done Comments CT Colonography 1958 Colonoscopy 1958 Colorectal Cancer Screening 1958 FIT-DNA 1958 FIT 1958 FOBT 1958 Sigmoidoscopy 1958 Diabetes: Foot Exam 1968 Diabetes: Retinopathy Screening 1968 DTaP/Tdap/Td Vaccines (1 - Tdap) 1977 Diabetes: Urine Protein Screening 1977 Zoster Vaccines (1 of 2) 2008 Pneumococcal Vaccine: 65+ Ye ars (2 of 2 - PCV) 12/27/2014 12/27/2013 Respiratory Syncytial Virus (RSV) or >=60 (1 - Risk 60-74 years 1-dose series) 2018 Annual Physical 12/07/2023 12/07/2022 Medicare Annual Wellness (AWV) 04/13/2024 03/14/2023 Influenza Vaccine (#1) 2024 12/27/2013 Diabetes: Hemoglobin A1C 09/18/2024 03/18/2024 Lipid Panel 03/18/2025 03/18/2024 HIB Vaccines Aged Out No longer eligi ble based on patient's age to complete this topic HPV Vaccines Aged Out No longer eligi ble based on patient's age to complete this topic Hepatitis A Vaccines Aged Out No long er eligible based on patient's age to complete this topic Hepatitis B Vaccines Aged Out No long er eligible based on patient's age to complete this topic IPV Vaccines Aged Out No longer eligi ble based on patient's age to complete this topic Meningococcal Vaccine Aged Out No [place] sandy eligible based on patient's age to complete this topic Rotavirus Vaccines Aged Out No longer eligible based on patient's age to complete this topic [id number] 09:45:16 Diagnosis Abnormal foot finding - Prim mireya [id number] 09:45:16 [place] [id number] 12:27:05* Sheeba Aviles, CAROLIN - 09/24/2024 12:00 PM ACCOUNT COLLECTOR CHIEF COMPLAINT: HELOMA KEVANE HAMMERTOE, LEFT MEDIAL 2ND EXOSTOSIS/BUNION, RIGHT RFC HISTORY OF PRESENT ILLNESS: Patient requesting further evaluation of painful heloma Molle, left medial 2nd digit Patient states previous debridement was successful at resolving the pain, however has since recurred and therefore requesting repeat debridement Patient currently denies infection, injury, other wounds in the bilateral lower extremity Patient states pain currently rated 2/10 on palpation, left medial 2nd digit --- Patient states he may have stepped on a nail causing a change in the gait and exacerbating the pain at the medial left 2nd digit Patient denies infection, injury, open wounds in the bilateral lower extremity Patient states pain currently rated 2/10, left medial 2nd digit --- Patient returns for right foot bunion eval, s/p BILATERAL surgical correction (Dr Nick), approximately 2014 Patient states pain during ambulation due to irritation within the shoe gear from the large exostosis at the RIGHT dorsal medial 1st metatarsophalangeal joint Patient currently denies infection, injury, open wounds Patient states pain currently rated 2/10 on palpation, right dorsal medial 1st metatarsal head --- Patient returns for routine pedal evaluation in hopes to avoid complications in the lower extremity due to multiple high risk comorbidities Patient also requesting of x-rays at previous bunion surgery, right foot 1st metatarsophalangeal joint Patient states nails are painful, thick, and elongated. Patient denies infection, injury, wounds Patient states periodic pain with prolonged ambulation at work, right foot 1st metatarsophalangeal joint Patient states most recent fasting blood sugar was tested this morning with a value of 128 mg/dl. PHYSICAL EXAM OF THE LOWER EXTREMITY: Vascular: (-) edema symmetrical to bilateral lower extremity, (-) ecchymosis, (-) erythema 2/4 Dorsal pedis pulse, bilateral 2/4 Posterior tibial pulse, bilateral (+) normal Capillary Refill time (+) varicosities, (-) pedal hair growth Neurological: (+) mixed sensation with 5.07 Bancroft Danika monofilament examination to the most distal lower extremity (+) normal response to hot, cold, sharp, blunted and vibratory sensations. (-) clonus present. Dermatological: (+) hyperkeratosis, left medial 2nd digit abutting the 1st digit nail (+) scar, dorsal medial RIGHT 1st metatarsophalangeal joint (+) Nails are thick, yellow, elongated. Debrided without complications (+) resolved nail biopsy site, left 2nd digit (-) signs of soft tissue infection, (-) open wounds, (-) macerations (-) abscess (-) ischemic tissue (+) normal temperature when compared to contralateral limb (+) normal color, tugor, and elasticity. Musculoskeletal: (+) hammertoe with medial angulation, left 2nd (+) pain on palpation, left medial 2nd digit, resolved after debridement (-) pain on palpation at large exostosis, RIGHT dorsal medial 1st metatarsal head (-) pain on palpation through the lower extremity (+) Semi-rigid hammertoe deformities, BILATERAL (-) other gross osseous abnormalities 5/5 muscle strength to extrinsic pedal muscle groups (-) evidence of compartment syndrome, (-) evidence of deep vein thrombosis X-rays bilateral feet 07/20/2024: (+) Large exostosis, right dorsal medial 1st metatarsal head (+) well aligned/corrected bunion deformity (+) hardware intact at the BILATERAL midshaft 1st proximal phalanx X-RAYS BILATERAL FEET 09/03/2024: (+) Hypertrophic exostosis, left medial 2nd proximal interphalangeal joint secondary to arthritis Pathology left 2nd digit nail biopsy 03/28/2023: (+) cladosporium species. ASSESSMENT: Hammertoe with heloma Molle, left medial 2nd digit Exostosis /Bunion, right Onychomycosis, bilateral feet --- Diabetes type 2 with neuropathy. TREATMENT PLAN: - Extensive office visit discussing possible pedal complications associated prolonged and enlarged exostosis - hammertoe - offload with toe spacer - heloma Molle - debrided without complications, provided immediate relief of pain, no bandage indicated - Nails - debrided without complications - nail biopsy - biopsy site is resolved therefore no bandage indicated, use topical antifungal - Medication - moisturize feet daily to help prevent ulcerations and xerosis - [id number] - Vascular - no further intervention indicated palpable pedal pulses, no open wounds, no ischemic tissue. - Edema - compression stockings advised - Shoes - patient educated to obtain diabetic shoes, custom molded inserts - Diabetic management - spent significant time discussing and educating patient about appropriate diabetic management and care for the lower extremity. Patient also advised to follow-up with detailed regimen with PCP - orthotics - patient defers custom and understands risks, patient advised to obtain [id number] -weight bearing - as tolerated in well protective shoes with wide toe box to reduce pressure from painful exostosis - oncology - patient states no acute concerns and patient was cleared for shoulder surgery after abnormal blood values found in preparation for shoulder surgery - RIGHT dorsal medial 1st metatarsal head exostosis, patient defers further surgical intervention since no further concerns - LEFT medial 2nd digit heloma molle - USE TOE SPACERS, secondary to hypertrophic exostosis, may benefit from surgical excision in the future if pain recurs - Return 4 weeks repeat debridement (may consider surgery with needing ankle recon at [facility] in [place]) Patient advised to report to my clinic or the emergency room immediately with any questions or concerns. Patient Instructions: Discussion: A detailed discussion was provided to the patient with specific reference to etiology, pathology, alternate treatment options, and prognosis. All risks and complications (including side effects) with each treatment/medication alternative were outlined in detail including but not limited to: Pain, swelling, numbness, loss of function, loss of limb, bleeding, hematoma, scarring, failure to relieve condition, surgery, additional/revisional surgery, reflex sympathetic dystrophy, complex regional pain syndrome, reoccurrence of deformity, joint stiffness, flail toe, bone and/or soft tissue infection, blood clots, pulmonary embolism, possible , delayed or non-healing. X-rays, graphs and drawings were all used to assist with patient comprehension when appropriate. All patients questions were answered and stated they fully understood. No guarantee as to results or outcome of treatment was made. I have discussed with the patient or legally responsible person prior to obtaining consent: the risks, potential benefits and drawbacks, significant alternatives, potential for problems related to recuperation, likelihood of success, and possible results of non-treatment, and the patient or the legally responsible person has agreed to proceed. [facility]2024-11-11 12:27:05Upcoming Encounters Health Maintenance Due Date Last Done Comments Bone Density Scan 1958 CT Colonography 1958 Colonoscopy 1958 Colorectal Cancer Screening 1958 FIT-DNA 1958 FIT 1958 FOBT 1958 Sigmoidoscopy 1958 Diabetes: Foot Exam 1968 Diabetes: Retinopathy Screening 1968 DTaP/Tdap/Td Vaccines (1 - Tdap) 1977 Diabetes: Urine Protein Screening 1977 Mammogram 1998 Zoster Vaccines (1 of 2) 2008 Pneumococcal Vaccine: 65+ Ye ars (2 of 2 - PCV) 12/27/2014 12/27/2013 Respiratory Syncytial Virus (RSV) or >=60 (1 - 1-dose 60+ series) 2018 Annual Physical 12/07/2023 12/07/2022 Medicare Annual Wellness (AWV) 04/13/2024 03/14/2023 Influenza Vaccine (#1) 2024 12/27/2013 Diabetes: Hemoglobin A1C 09/18/2024 03/18/2024 Lipid Panel 03/18/2025 03/18/2024 HIB Vaccines Aged Out No longer eligi ble based on patient's age to complete this topic HPV Vaccines Aged Out No longer eligi ble based on patient's age to complete this topic Hepatitis A Vaccines Aged Out No long er eligible based on patient's age to complete this topic Hepatitis B Vaccines Aged Out No long er eligible based on patient's age to complete this topic IPV Vaccines Aged Out No longer eligi ble based on patient's age to complete this topic Meningococcal Vaccine Aged Out No [place] eligible based on patient's age to complete this topic Rotavirus Vaccines Aged Out No longer eligible based on patient's age to complete this topic [facility] [id number] 12:27:05 Diagnosis Abnormal foot finding - Michael gomes [facility] [id number] 12:27:05 [facility] [id number] 12:27:04* Sheeba Aviles, CAROLIN - 09/24/2024 12:00 PM ACCOUNT COLLECTOR CHIEF COMPLAINT: HELOMA MOLLE HAMMERTOE, LEFT MEDIAL 2ND EXOSTOSIS/BUNION, RIGHT RFC HISTORY OF PRESENT ILLNESS: Patient requesting further evaluation of painful heloma Molle, left medial 2nd digit Patient states previous debridement was successful at resolving the pain, however has since recurred and therefore requesting repeat debridement Patient currently denies infection, injury, other wounds in the bilateral lower extremity Patient states pain currently rated 2/10 on palpation, left medial 2nd digit --- Patient states he may have stepped on a nail causing a change in the gait and exacerbating the pain at the medial left 2nd digit Patient denies infection, injury, open wounds in the bilateral lower extremity Patient states pain currently rated 2/10, left medial 2nd digit --- Patient returns for right foot bunion eval, s/p BILATERAL surgical correction (Dr Nick), approximately 2014 Patient states pain during ambulation due to irritation within the shoe gear from the large exostosis at the RIGHT dorsal medial 1st metatarsophalangeal joint Patient currently denies infection, injury, open wounds Patient states pain currently rated 2/10 on palpation, right dorsal medial 1st metatarsal head --- Patient returns for routine pedal evaluation in hopes to avoid complications in the lower extremity due to multiple high risk comorbidities Patient also requesting of x-rays at previous bunion surgery, right foot 1st metatarsophalangeal joint Patient states nails are painful, thick, and elongated. Patient denies infection, injury, wounds Patient states periodic pain with prolonged ambulation at work, right foot 1st metatarsophalangeal joint Patient states most recent fasting blood sugar was tested this morning with a value of 128 mg/dl. PHYSICAL EXAM OF THE LOWER EXTREMITY: Vascular: (-) edema symmetrical to bilateral lower extremity, (-) ecchymosis, (-) erythema 2/4 Dorsal pedis pulse, bilateral 2/4 Posterior tibial pulse, bilateral (+) normal Capillary Refill time (+) varicosities, (-) pedal hair growth Neurological: (+) mixed sensation with 5.07 Bancroft Danika monofilament examination to the most distal lower extremity (+) normal response to hot, cold, sharp, blunted and vibratory sensations. (-) clonus present. Dermatological: (+) hyperkeratosis, left medial 2nd digit abutting the 1st digit nail (+) scar, dorsal medial RIGHT 1st metatarsophalangeal joint (+) Nails are thick, yellow, elongated. Debrided without complications (+) resolved nail biopsy site, left 2nd digit (-) signs of soft tissue infection, (-) open wounds, (-) macerations (-) abscess (-) ischemic tissue (+) normal temperature when compared to contralateral limb (+) normal color, tugor, and elasticity. Musculoskeletal: (+) hammertoe with medial angulation, left 2nd (+) pain on palpation, left medial 2nd digit, resolved after debridement (-) pain on palpation at large exostosis, RIGHT dorsal medial 1st metatarsal head (-) pain on palpation through the lower extremity (+) Semi-rigid hammertoe deformities, BILATERAL (-) other gross osseous abnormalities 5/5 muscle strength to extrinsic pedal muscle groups (-) evidence of compartment syndrome, (-) evidence of deep vein thrombosis X-rays bilateral feet 07/20/2024: (+) Large exostosis, right dorsal medial 1st metatarsal head (+) well aligned/corrected bunion deformity (+) hardware intact at the BILATERAL midshaft 1st proximal phalanx X-RAYS BILATERAL FEET 09/03/2024: (+) Hypertrophic exostosis, left medial 2nd proximal interphalangeal joint secondary to arthritis Pathology left 2nd digit nail biopsy 03/28/2023: (+) cladosporium species. ASSESSMENT: Hammertoe with heloma Molle, left medial 2nd digit Exostosis /Bunion, right Onychomycosis, bilateral feet --- Diabetes type 2 with neuropathy. TREATMENT PLAN: - Extensive office visit discussing possible pedal complications associated prolonged and enlarged exostosis - hammertoe - offload with toe spacer - heloma Molle - debrided without complications, provided immediate relief of pain, no bandage indicated - Nails - debrided without complications - nail biopsy - biopsy site is resolved therefore no bandage indicated, use topical antifungal - Medication - moisturize feet daily to help prevent ulcerations and xerosis - [id number] - Vascular - no further intervention indicated palpable pedal pulses, no open wounds, no ischemic tissue. - Edema - compression stockings advised - Shoes - patient educated to obtain diabetic shoes, custom molded inserts - Diabetic management - spent significant time discussing and educating patient about appropriate diabetic management and care for the lower extremity. Patient also advised to follow-up with detailed regimen with PCP - orthotics - patient defers custom and understands risks, patient advised to obtain [id number] -weight bearing - as tolerated in well protective shoes with wide toe box to reduce pressure from painful exostosis - oncology - patient states no acute concerns and patient was cleared for shoulder surgery after abnormal blood values found in preparation for shoulder surgery - RIGHT dorsal medial 1st metatarsal head exostosis, patient defers further surgical intervention since no further concerns - LEFT medial 2nd digit heloma molle - USE TOE SPACERS, secondary to hypertrophic exostosis, may benefit from surgical excision in the future if pain recurs - Return 4 weeks repeat debridement (may consider surgery with needing ankle recon at [facility] in [place]) Patient advised to report to my clinic or the emergency room immediately with any questions or concerns. Patient Instructions: Discussion: A detailed discussion was provided to the patient with specific reference to etiology, pathology, alternate treatment options, and prognosis. All risks and complications (including side effects) with each treatment/medication alternative were outlined in detail including but not limited to: Pain, swelling, numbness, loss of function, loss of limb, bleeding, hematoma, scarring, failure to relieve condition, surgery, additional/revisional surgery, reflex sympathetic dystrophy, complex regional pain syndrome, reoccurrence of deformity, joint stiffness, flail toe, bone and/or soft tissue infection, blood clots, pulmonary embolism, possible , delayed or non-healing. X-rays, graphs and drawings were all used to assist with patient comprehension when appropriate. All patients questions were answered and stated they fully understood. No guarantee as to results or outcome of treatment was made. I have discussed with the patient or legally responsible person prior to obtaining consent: the risks, potential benefits and drawbacks, significant alternatives, potential for problems related to recuperation, likelihood of success, and possible results of non-treatment, and the patient or the legally responsible person has agreed to proceed. [facility]2024-11-11 12:27:04Upcoming Encounters Health Maintenance Due Date Last Done Comments Bone Density Scan 1958 CT Colonography 1958 Colonoscopy 1958 Colorectal Cancer Screening 1958 FIT-DNA 1958 FIT 1958 FOBT 1958 Sigmoidoscopy 1958 Diabetes: Foot Exam 1968 Diabetes: Retinopathy Screening 1968 DTaP/Tdap/Td Vaccines (1 - Tdap) 1977 Diabetes: Urine Protein Screening 1977 Mammogram 1998 Zoster Vaccines (1 of 2) 2008 Pneumococcal Vaccine: 65+ Ye ars (2 of 2 - PCV) 12/27/2014 12/27/2013 Respiratory Syncytial Virus (RSV) or >=60 (1 - 1-dose 60+ series) 2018 Annual Physical 12/07/2023 12/07/2022 Medicare Annual Wellness (AWV) 04/13/2024 03/14/2023 Influenza Vaccine (#1) 2024 12/27/2013 Diabetes: Hemoglobin A1C 09/18/2024 03/18/2024 Lipid Panel 03/18/2025 03/18/2024 HIB Vaccines Aged Out No longer eligi ble based on patient's age to complete this topic HPV Vaccines Aged Out No longer eligi ble based on patient's age to complete this topic Hepatitis A Vaccines Aged Out No long er eligible based on patient's age to complete this topic Hepatitis B Vaccines Aged Out No long er eligible based on patient's age to complete this topic IPV Vaccines Aged Out No longer eligi ble based on patient's age to complete this topic Meningococcal Vaccine Aged Out No [place] eligible based on patient's age to complete this topic Rotavirus Vaccines Aged Out No longer eligible based on patient's age to complete this topic [facility] [id number] 12:27:04 Diagnosis Abnormal foot finding - Michael gomes [facility] [id number] 12:27:04 [facility] [id number] 10:21:03* Sheeba Aviles, CAROLIN - 09/05/2024 9:40 AM CDT CHIEF COMPLAINT: HELOMA MOLLE HAMMERTOE, LEFT MEDIAL 2ND EXOSTOSIS/BUNION, RIGHT RFC HISTORY OF PRESENT ILLNESS: Patient requesting further evaluation of painful heloma Mollconnie, left medial 2nd digit Patient states he may have stepped on a nail causing a change in the gait and exacerbating the pain at the medial left 2nd digit Patient denies infection, injury, open wounds in the bilateral lower extremity Patient states pain currently rated 2/10, left medial 2nd digit --- Patient returns for right foot bunion eval, s/p BILATERAL surgical correction (Dr Nick), approximately 2014 Patient states pain during ambulation due to irritation within the shoe gear from the large exostosis at the RIGHT dorsal medial 1st metatarsophalangeal joint Patient currently denies infection, injury, open wounds Patient states pain currently rated 2/10 on palpation, right dorsal medial 1st metatarsal head --- Patient returns for routine pedal evaluation in hopes to avoid complications in the lower extremity due to multiple high risk comorbidities Patient also requesting of x-rays at previous bunion surgery, right foot 1st metatarsophalangeal joint Patient states nails are painful, thick, and elongated. Patient denies infection, injury, wounds Patient states periodic pain with prolonged ambulation at work, right foot 1st metatarsophalangeal joint Patient states most recent fasting blood sugar was tested this morning with a value of 128 mg/dl. PHYSICAL EXAM OF THE LOWER EXTREMITY: Vascular: (-) edema symmetrical to bilateral lower extremity, (-) ecchymosis, (-) erythema 2/4 Dorsal pedis pulse, bilateral 2/4 Posterior tibial pulse, bilateral (+) normal Capillary Refill time (+) varicosities, (-) pedal hair growth Neurological: (+) mixed sensation with 5.07 Bancroft Danika monofilament examination to the most distal lower extremity (+) normal response to hot, cold, sharp, blunted and vibratory sensations. (-) clonus present. Dermatological: (+) hyperkeratosis, left medial 2nd digit abutting the 1st digit nail (+) scar, dorsal medial RIGHT 1st metatarsophalangeal joint (+) Nails are thick, yellow, elongated. Debrided without complications (+) resolved nail biopsy site, left 2nd digit (-) signs of soft tissue infection, (-) open wounds, (-) macerations (-) abscess (-) ischemic tissue (+) normal temperature when compared to contralateral limb (+) normal color, tugor, and elasticity. Musculoskeletal: (+) hammertoe with medial angulation, left 2nd (-) pain on palpation at large exostosis, RIGHT dorsal medial 1st metatarsal head (-) pain on palpation through the lower extremity (+) Semi-rigid hammertoe deformities, BILATERAL (-) other gross osseous abnormalities 5/5 muscle strength to extrinsic pedal muscle groups (-) evidence of compartment syndrome, (-) evidence of deep vein thrombosis X-rays bilateral feet 07/20/2024: (+) Large exostosis, right dorsal medial 1st metatarsal head (+) well aligned/corrected bunion deformity (+) hardware intact at the BILATERAL midshaft 1st proximal phalanx X-RAYS BILATERAL FEET 09/03/2024: (+) Hypertrophic exostosis, left medial 2nd proximal interphalangeal joint secondary to arthritis Pathology left 2nd digit nail biopsy 03/28/2023: (+) cladosporium species. ASSESSMENT: Hammertoe with heloma Molle, left medial 2nd digit Exostosis /Bunion, right Onychomycosis, bilateral feet --- Diabetes type 2 with neuropathy. TREATMENT PLAN: - Extensive office visit discussing possible pedal complications associated prolonged and enlarged exostosis - hammertoe- offload with toe spacer - Nails - debrided without complications - nail biopsy - biopsy site is resolved therefore no bandage indicated, use topical antifungal - Medication - moisturize feet daily to help prevent ulcerations and xerosis - X-RAYS - ORDERED 08/22 - Vascular - no further intervention indicated palpable pedal pulses, no open wounds, no ischemic tissue. - Edema - compression stockings advised - Shoes - patient educated to obtain diabetic shoes, custom molded inserts - Diabetic management - spent significant time discussing and educating patient about appropriate diabetic management and care for the lower extremity. Patient also advised to follow-up with detailed regimen with PCP - orthotics - patient defers custom and understands risks, patient advised to obtain [id number] -weight bearing - as tolerated in well protective shoes with wide toe box to reduce pressure from painful exostosis - ONCOLOGY- PLANNING visit with heme oncologist due to abnormal blood values found in preparation for shoulder surgery - RIGHT dorsal medial 1st metatarsal head exostosis, patient defers further surgical intervention since no further concerns - LEFT medial 2nd digit heloma molle - USE TOE SPACERS, secondary to hypertrophic exostosis, may benefit from surgical excision in the future if pain recurs - Return 2 weeks for imaging review, billing surgical plans (may consider surgery with needing ankle recon at [facility] in [place]) Patient advised to report to my clinic or the emergency room immediately with any questions or concerns. Patient Instructions: Discussion: A detailed discussion was provided to the patient with specific reference to etiology, pathology, alternate treatment options, and prognosis. All risks and complications (including side effects) with each treatment/medication alternative were outlined in detail including but not limited to: Pain, swelling, numbness, loss of function, loss of limb, bleeding, hematoma, scarring, failure to relieve condition, surgery, additional/revisional surgery, reflex sympathetic dystrophy, complex regional pain syndrome, reoccurrence of deformity, joint stiffness, flail toe, bone and/or soft tissue infection, blood clots, pulmonary embolism, possible , delayed or non-healing. X-rays, graphs and drawings were all used to assist with patient comprehension when appropriate. All patients questions were answered and stated they fully understood. No guarantee as to results or outcome of treatment was made. I have discussed with the patient or legally responsible person prior to obtaining consent: the risks, potential benefits and drawbacks, significant alternatives, potential for problems related to recuperation, likelihood of success, and possible results of non-treatment, and the patient or the legally responsible person has agreed to proceed. [id number] 10:21:03Upcoming Encounters Health Maintenance Due Date Last Done Comments Bone Density Scan 1958 CT Colonography 1958 Colonoscopy 1958 Colorectal Cancer Screening 1958 FIT-DNA 1958 FIT 1958 FOBT 1958 Sigmoidoscopy 1958 Diabetes: Foot Exam 1968 Diabetes: Retinopathy Screening 1968 DTaP/Tdap/Td Vaccines (1 - Tdap) 1977 Diabetes: Urine Protein Screening 1977 Mammogram 1998 Zoster Vaccines (1 of 2) 2008 Pneumococcal Vaccine: 65+ Ye ars (2 of 2 - PCV) 12/27/2014 12/27/2013 Respiratory Syncytial Virus (RSV) or >=60 (1 - 1-dose 60+ series) 2018 Medicare Annual Wellness (AWV) 04/13/2024 03/14/2023 Influenza Vaccine (#1) 2024 12/27/2013 Diabetes: Hemoglobin A1C 09/18/2024 03/18/2024 Lipid Panel 03/18/2025 03/18/2024 HIB Vaccines Aged Out No longer eligi ble based on patient's age to complete this topic HPV Vaccines Aged Out No longer eligi ble based on patient's age to complete this topic Hepatitis A Vaccines Aged Out No long er eligible based on patient's age to complete this topic Hepatitis B Vaccines Aged Out No long er eligible based on patient's age to complete this topic IPV Vaccines Aged Out No longer eligi ble based on patient's age to complete this topic Meningococcal Vaccine Aged Out No [place] sandy eligible based on patient's age to complete this topic Rotavirus Vaccines Aged Out No longer eligible based on patient's age to complete this topic [id number] 10:21:03 Diagnosis Abnormal foot finding - Prim mireya [id number] 10:21:03 [id number] 10:21:03* Sheeba Azevedo Stefan, DP - 09/05/2024 9:40 AM CDT CHIEF COMPLAINT: RACHELOMA KYLE HAMMERTOE, LEFT MEDIAL 2ND EXOSTOSIS/BUNION, RIGHT C HISTORY OF PRESENT ILLNESS: Patient requesting further evaluation of painful norm Draper, left medial 2nd digit Patient states he may have stepped on a nail causing a change in the gait and exacerbating the pain at the medial left 2nd digit Patient denies infection, injury, open wounds in the bilateral lower extremity Patient states pain currently rated 2/10, left medial 2nd digit --- Patient returns for right foot bunion eval, s/p BILATERAL surgical correction (Dr Nick), approximately 2014 Patient states pain during ambulation due to irritation within the shoe gear from the large exostosis at the RIGHT dorsal medial 1st metatarsophalangeal joint Patient currently denies infection, injury, open wounds Patient states pain currently rated 2/10 on palpation, right dorsal medial 1st metatarsal head --- Patient returns for routine pedal evaluation in hopes to avoid complications in the lower extremity due to multiple high risk comorbidities Patient also requesting of x-rays at previous bunion surgery, right foot 1st metatarsophalangeal joint Patient states nails are painful, thick, and elongated. Patient denies infection, injury, wounds Patient states periodic pain with prolonged ambulation at work, right foot 1st metatarsophalangeal joint Patient states most recent fasting blood sugar was tested this morning with a value of 128 mg/dl. PHYSICAL EXAM OF THE LOWER EXTREMITY: Vascular: (-) edema symmetrical to bilateral lower extremity, (-) ecchymosis, (-) erythema 2/4 Dorsal pedis pulse, bilateral 2/4 Posterior tibial pulse, bilateral (+) normal Capillary Refill time (+) varicosities, (-) pedal hair growth Neurological: (+) mixed sensation with 5.07 Bancroft Danika monofilament examination to the most distal lower extremity (+) normal response to hot, cold, sharp, blunted and vibratory sensations. (-) clonus present. Dermatological: (+) hyperkeratosis, left medial 2nd digit abutting the 1st digit nail (+) scar, dorsal medial RIGHT 1st metatarsophalangeal joint (+) Nails are thick, yellow, elongated. Debrided without complications (+) resolved nail biopsy site, left 2nd digit (-) signs of soft tissue infection, (-) open wounds, (-) macerations (-) abscess (-) ischemic tissue (+) normal temperature when compared to contralateral limb (+) normal color, tugor, and elasticity. Musculoskeletal: (+) hammertoe with medial angulation, left 2nd (-) pain on palpation at large exostosis, RIGHT dorsal medial 1st metatarsal head (-) pain on palpation through the lower extremity (+) Semi-rigid hammertoe deformities, BILATERAL (-) other gross osseous abnormalities 5/5 muscle strength to extrinsic pedal muscle groups (-) evidence of compartment syndrome, (-) evidence of deep vein thrombosis X-rays bilateral feet 07/20/2024: (+) Large exostosis, right dorsal medial 1st metatarsal head (+) well aligned/corrected bunion deformity (+) hardware intact at the BILATERAL midshaft 1st proximal phalanx X-RAYS BILATERAL FEET 09/03/2024: (+) Hypertrophic exostosis, left medial 2nd proximal interphalangeal joint secondary to arthritis Pathology left 2nd digit nail biopsy 03/28/2023: (+) cladosporium species. ASSESSMENT: Hammertoe with heloma Molle, left medial 2nd digit Exostosis /Bunion, right Onychomycosis, bilateral feet --- Diabetes type 2 with neuropathy. TREATMENT PLAN: - Extensive office visit discussing possible pedal complications associated prolonged and enlarged exostosis - hammertoe- offload with toe spacer - Nails - debrided without complications - nail biopsy - biopsy site is resolved therefore no bandage indicated, use topical antifungal - Medication - moisturize feet daily to help prevent ulcerations and xerosis - X-RAYS - ORDERED 08/22 - Vascular - no further intervention indicated palpable pedal pulses, no open wounds, no ischemic tissue. - Edema - compression stockings advised - Shoes - patient educated to obtain diabetic shoes, custom molded inserts - Diabetic management - spent significant time discussing and educating patient about appropriate diabetic management and care for the lower extremity. Patient also advised to follow-up with detailed regimen with PCP - orthotics - patient defers custom and understands risks, patient advised to obtain [id number] -weight bearing - as tolerated in well protective shoes with wide toe box to reduce pressure from painful exostosis - ONCOLOGY- PLANNING visit with heme oncologist due to abnormal blood values found in preparation for shoulder surgery - RIGHT dorsal medial 1st metatarsal head exostosis, patient defers further surgical intervention since no further concerns - LEFT medial 2nd digit heloma molle - USE TOE SPACERS, secondary to hypertrophic exostosis, may benefit from surgical excision in the future if pain recurs - Return 2 weeks for imaging review, billing surgical plans (may consider surgery with needing ankle recon at [facility] in [place]) Patient advised to report to my clinic or the emergency room immediately with any questions or concerns. Patient Instructions: Discussion: A detailed discussion was provided to the patient with specific reference to etiology, pathology, alternate treatment options, and prognosis. All risks and complications (including side effects) with each treatment/medication alternative were outlined in detail including but not limited to: Pain, swelling, numbness, loss of function, loss of limb, bleeding, hematoma, scarring, failure to relieve condition, surgery, additional/revisional surgery, reflex sympathetic dystrophy, complex regional pain syndrome, reoccurrence of deformity, joint stiffness, flail toe, bone and/or soft tissue infection, blood clots, pulmonary embolism, possible , delayed or non-healing. X-rays, graphs and drawings were all used to assist with patient comprehension when appropriate. All patients questions were answered and stated they fully understood. No guarantee as to results or outcome of treatment was made. I have discussed with the patient or legally responsible person prior to obtaining consent: the risks, potential benefits and drawbacks, significant alternatives, potential for problems related to recuperation, likelihood of success, and possible results of non-treatment, and the patient or the legally responsible person has agreed to proceed. [facility] [id number] 10:21:03Upcoming Encounters Health Maintenance Due Date Last Done Comments Bone Density Scan 1958 CT Colonography 1958 Colonoscopy 1958 Colorectal Cancer Screening 1958 FIT-DNA 1958 FIT 1958 FOBT 1958 Sigmoidoscopy 1958 Diabetes: Foot Exam 1968 Diabetes: Retinopathy Screening 1968 DTaP/Tdap/Td Vaccines (1 - Tdap) 1977 Diabetes: Urine Protein Screening 1977 Mammogram 1998 Zoster Vaccines (1 of 2) 2008 Pneumococcal Vaccine: 65+ Ye ars (2 of 2 - PCV) 12/27/2014 12/27/2013 Respiratory Syncytial Virus (RSV) or >=60 (1 - 1-dose 60+ series) 2018 Medicare Annual Wellness (AWV) 04/13/2024 03/14/2023 Influenza Vaccine (#1) 2024 12/27/2013 Diabetes: Hemoglobin A1C 09/18/2024 03/18/2024 Lipid Panel 03/18/2025 03/18/2024 HIB Vaccines Aged Out No longer eligi ble based on patient's age to complete this topic HPV Vaccines Aged Out No longer eligi ble based on patient's age to complete this topic Hepatitis A Vaccines Aged Out No long er eligible based on patient's age to complete this topic Hepatitis B Vaccines Aged Out No long er eligible based on patient's age to complete this topic IPV Vaccines Aged Out No longer eligi ble based on patient's age to complete this topic Meningococcal Vaccine Aged Out No [place] eligible based on patient's age to complete this topic Rotavirus Vaccines Aged Out No longer eligible based on patient's age to complete this topic [facility] [id number] 10:21:03 Diagnosis Abnormal foot finding - Prim mireya [facility] [id number] 10:21:03 [facility] [id number] 10:09:39* Sheeba Aviles, CAROLIN - 08/22/2024 9:50 AM CDT CHIEF COMPLAINT: HELOMA MOLLE HAMMERTOE, LEFT MEDIAL 2ND RFC EXOSTOSIS/BUNION, RIGHT HISTORY OF PRESENT ILLNESS: Patient requesting further evaluation of painful heloma Molle, left medial 2nd digit Patient states he may have stepped on a nail causing a change in the gait and exacerbating the pain at the medial left 2nd digit Patient denies infection, injury, open wounds in the bilateral lower extremity Patient states pain currently rated 2/10, left medial 2nd digit --- Patient returns for right foot bunion eval, s/p BILATERAL surgical correction (Dr Nick), approximately 2015 Patient states pain during ambulation due to irritation within the shoe gear from the large exostosis at the RIGHT dorsal medial 1st metatarsophalangeal joint Patient currently denies infection, injury, open wounds Patient states pain currently rated 2/10 on palpation, right dorsal medial 1st metatarsal head --- Patient returns for routine pedal evaluation in hopes to avoid complications in the lower extremity due to multiple high risk comorbidities Patient also requesting of x-rays at previous bunion surgery, right foot 1st metatarsophalangeal joint Patient states nails are painful, thick, and elongated. Patient denies infection, injury, wounds Patient states periodic pain with prolonged ambulation at work, right foot 1st metatarsophalangeal joint Patient states most recent fasting blood sugar was tested this morning with a value of 128 mg/dl. PHYSICAL EXAM OF THE LOWER EXTREMITY: Vascular: (-) edema symmetrical to bilateral lower extremity, (-) ecchymosis, (-) erythema 2/4 Dorsal pedis pulse, bilateral 2/4 Posterior tibial pulse, bilateral (+) normal Capillary Refill time (+) varicosities, (-) pedal hair growth Neurological: (+) mixed sensation with 5.07 Bancroft Danika monofilament examination to the most distal lower extremity (+) normal response to hot, cold, sharp, blunted and vibratory sensations. (-) clonus present. Dermatological: (+) hyperkeratosis, left medial 2nd digit abutting the 1st digit nail (+) scar, dorsal medial RIGHT 1st metatarsophalangeal joint (+) Nails are thick, yellow, elongated. Debrided without complications (+) resolved nail biopsy site, left 2nd digit (-) signs of soft tissue infection, (-) open wounds, (-) macerations (-) abscess (-) ischemic tissue (+) normal temperature when compared to contralateral limb (+) normal color, tugor, and elasticity. Musculoskeletal: (+) hammertoe with medial angulation, left 2nd (+) Mild pain on palpation at large exostosis, RIGHT dorsal medial 1st metatarsal head (-) pain on palpation through the lower extremity (+) Semi-rigid hammertoe deformities, BILATERAL (-) other gross osseous abnormalities 5/5 muscle strength to extrinsic pedal muscle groups (-) evidence of compartment syndrome, (-) evidence of deep vein thrombosis X-rays bilateral feet 07/20/2024: (+) Large exostosis, right dorsal medial 1st metatarsal head (+) well aligned/corrected bunion deformity (+) hardware intact at the BILATERAL midshaft 1st proximal phalanx Pathology left 2nd digit nail biopsy 03/28/2023: (+) cladosporium species. ASSESSMENT: Hammertoe with heloma Molle, left medial 2nd digit Exostosis /Bunion, right Onychomycosis, bilateral feet --- Diabetes type 2 with neuropathy. TREATMENT PLAN: - Extensive office visit discussing possible pedal complications associated prolonged and enlarged exostosis - hammertoe- offload with toe spacer - Nails - debrided without complications - nail biopsy - biopsy site is resolved therefore no bandage indicated, use topical antifungal - Medication - moisturize feet daily to help prevent ulcerations and xerosis - X-RAYS - ORDERED 08/22 - Vascular - no further intervention indicated palpable pedal pulses, no open wounds, no ischemic tissue. - Edema - compression stockings advised - Shoes - patient educated to obtain diabetic shoes, custom molded inserts - Diabetic management - spent significant time discussing and educating patient about appropriate diabetic management and care for the lower extremity. Patient also advised to follow-up with detailed regimen with PCP - orthotics - patient defers custom and understands risks, patient advised to obtain [id number] -weight bearing - as tolerated in well protective shoes with wide toe box to reduce pressure from painful exostosis - ONCOLOGY- PLANNING visit with heme oncologist due to abnormal blood values found in preparation for shoulder surgery - surgery - exostectomy, RIGHT dorsal medial 1st metatarsal head (delayed until after RIGHT shoulder surgery) - Return 2 weeks for imaging review, billing surgical plans (may consider surgery with needing ankle recon at [facility] in [place]) Patient advised to report to my clinic or the emergency room immediately with any questions or concerns. Patient Instructions: Discussion: A detailed discussion was provided to the patient with specific reference to etiology, pathology, alternate treatment options, and prognosis. All risks and complications (including side effects) with each treatment/medication alternative were outlined in detail including but not limited to: Pain, swelling, numbness, loss of function, loss of limb, bleeding, hematoma, scarring, failure to relieve condition, surgery, additional/revisional surgery, reflex sympathetic dystrophy, complex regional pain syndrome, reoccurrence of deformity, joint stiffness, flail toe, bone and/or soft tissue infection, blood clots, pulmonary embolism, possible , delayed or non-healing. X-rays, graphs and drawings were all used to assist with patient comprehension when appropriate. All patients questions were answered and stated they fully understood. No guarantee as to results or outcome of treatment was made. I have discussed with the patient or legally responsible person prior to obtaining consent: the risks, potential benefits and drawbacks, significant alternatives, potential for problems related to recuperation, likelihood of success, and possible results of non-treatment, and the patient or the legally responsible person has agreed to proceed. [facility] [id number] 10:09:39Upcoming Encounters Health Maintenance Due Date Last Done Comments Bone Density Scan 1958 CT Colonography 1958 Colonoscopy 1958 Colorectal Cancer Screening 1958 FIT-DNA 1958 FIT 1958 FOBT 1958 Sigmoidoscopy 1958 Diabetes: Foot Exam 1968 Diabetes: Retinopathy Screening 1968 DTaP/Tdap/Td Vaccines (1 - Tdap) 1977 Diabetes: Urine Protein Screening 1977 Mammogram 1998 Zoster Vaccines (1 of 2) 2008 Pneumococcal Vaccine: 65+ Ye ars (2 of 2 - PCV) 12/27/2014 12/27/2013 Respiratory Syncytial Virus (RSV) or >=60 (1 - 1-dose 60+ series) 2018 Medicare Annual Wellness (AWV) 04/13/2024 03/14/2023 Influenza Vaccine (#1) 2024 12/27/2013 Diabetes: Hemoglobin A1C 09/18/2024 03/18/2024 Lipid Panel 03/18/2025 03/18/2024 HIB Vaccines Aged Out No longer eligi ble based on patient's age to complete this topic HPV Vaccines Aged Out No longer eligi ble based on patient's age to complete this topic Hepatitis A Vaccines Aged Out No long er eligible based on patient's age to complete this topic Hepatitis B Vaccines Aged Out No long er eligible based on patient's age to complete this topic IPV Vaccines Aged Out No longer eligi ble based on patient's age to complete this topic Meningococcal Vaccine Aged Out No [place] eligible based on patient's age to complete this topic Rotavirus Vaccines Aged Out No longer eligible based on patient's age to complete this topic [facility] [id number] 10:09:39 Diagnosis Abnormal foot finding - Prim mireya [facility] [id number] 10:09:39 [facility] [id number] 10:09:39* Sheeba Aviles, [facility] - 08/22/2024 9:50 AM CDT CHIEF COMPLAINT: RACHELOMA KYLE HAMMERTOE, LEFT MEDIAL 2ND RFC EXOSTOSIS/BUNION, RIGHT HISTORY OF PRESENT ILLNESS: Patient requesting further evaluation of painful norm Draper, left medial 2nd digit Patient states he may have stepped on a nail causing a change in the gait and exacerbating the pain at the medial left 2nd digit Patient denies infection, injury, open wounds in the bilateral lower extremity Patient states pain currently rated 2/10, left medial 2nd digit --- Patient returns for right foot bunion eval, s/p BILATERAL surgical correction (Dr Nick), approximately 2014 Patient states pain during ambulation due to irritation within the shoe gear from the large exostosis at the RIGHT dorsal medial 1st metatarsophalangeal joint Patient currently denies infection, injury, open wounds Patient states pain currently rated 2/10 on palpation, right dorsal medial 1st metatarsal head --- Patient returns for routine pedal evaluation in hopes to avoid complications in the lower extremity due to multiple high risk comorbidities Patient also requesting of x-rays at previous bunion surgery, right foot 1st metatarsophalangeal joint Patient states nails are painful, thick, and elongated. Patient denies infection, injury, wounds Patient states periodic pain with prolonged ambulation at work, right foot 1st metatarsophalangeal joint Patient states most recent fasting blood sugar was tested this morning with a value of 128 mg/dl. PHYSICAL EXAM OF THE LOWER EXTREMITY: Vascular: (-) edema symmetrical to bilateral lower extremity, (-) ecchymosis, (-) erythema 2/4 Dorsal pedis pulse, bilateral 2/4 Posterior tibial pulse, bilateral (+) normal Capillary Refill time (+) varicosities, (-) pedal hair growth Neurological: (+) mixed sensation with 5.07 Bancroft Danika monofilament examination to the most distal lower extremity (+) normal response to hot, cold, sharp, blunted and vibratory sensations. (-) clonus present. Dermatological: (+) hyperkeratosis, left medial 2nd digit abutting the 1st digit nail (+) scar, dorsal medial RIGHT 1st metatarsophalangeal joint (+) Nails are thick, yellow, elongated. Debrided without complications (+) resolved nail biopsy site, left 2nd digit (-) signs of soft tissue infection, (-) open wounds, (-) macerations (-) abscess (-) ischemic tissue (+) normal temperature when compared to contralateral limb (+) normal color, tugor, and elasticity. Musculoskeletal: (+) hammertoe with medial angulation, left 2nd (+) Mild pain on palpation at large exostosis, RIGHT dorsal medial 1st metatarsal head (-) pain on palpation through the lower extremity (+) Semi-rigid hammertoe deformities, BILATERAL (-) other gross osseous abnormalities 5/5 muscle strength to extrinsic pedal muscle groups (-) evidence of compartment syndrome, (-) evidence of deep vein thrombosis X-rays bilateral feet 07/20/2024: (+) Large exostosis, right dorsal medial 1st metatarsal head (+) well aligned/corrected bunion deformity (+) hardware intact at the BILATERAL midshaft 1st proximal phalanx Pathology left 2nd digit nail biopsy 03/28/2023: (+) cladosporium species. ASSESSMENT: Hammertoe with heloma Molle, left medial 2nd digit Exostosis /Bunion, right Onychomycosis, bilateral feet --- Diabetes type 2 with neuropathy. TREATMENT PLAN: - Extensive office visit discussing possible pedal complications associated prolonged and enlarged exostosis - hammertoe- offload with toe spacer - Nails - debrided without complications - nail biopsy - biopsy site is resolved therefore no bandage indicated, use topical antifungal - Medication - moisturize feet daily to help prevent ulcerations and xerosis - X-RAYS - ORDERED 08/22 - Vascular - no further intervention indicated palpable pedal pulses, no open wounds, no ischemic tissue. - Edema - compression stockings advised - Shoes - patient educated to obtain diabetic shoes, custom molded inserts - Diabetic management - spent significant time discussing and educating patient about appropriate diabetic management and care for the lower extremity. Patient also advised to follow-up with detailed regimen with PCP - orthotics - patient defers custom and understands risks, patient advised to obtain [id number] -weight bearing - as tolerated in well protective shoes with wide toe box to reduce pressure from painful exostosis - ONCOLOGY- PLANNING visit with heme oncologist due to abnormal blood values found in preparation for shoulder surgery - surgery - exostectomy, RIGHT dorsal medial 1st metatarsal head (delayed until after RIGHT shoulder surgery) - Return 2 weeks for imaging review, billing surgical plans (may consider surgery with needing ankle recon at [facility] in [place]) Patient advised to report to my clinic or the emergency room immediately with any questions or concerns. Patient Instructions: Discussion: A detailed discussion was provided to the patient with specific reference to etiology, pathology, alternate treatment options, and prognosis. All risks and complications (including side effects) with each treatment/medication alternative were outlined in detail including but not limited to: Pain, swelling, numbness, loss of function, loss of limb, bleeding, hematoma, scarring, failure to relieve condition, surgery, additional/revisional surgery, reflex sympathetic dystrophy, complex regional pain syndrome, reoccurrence of deformity, joint stiffness, flail toe, bone and/or soft tissue infection, blood clots, pulmonary embolism, possible , delayed or non-healing. X-rays, graphs and drawings were all used to assist with patient comprehension when appropriate. All patients questions were answered and stated they fully understood. No guarantee as to results or outcome of treatment was made. I have discussed with the patient or legally responsible person prior to obtaining consent: the risks, potential benefits and drawbacks, significant alternatives, potential for problems related to recuperation, likelihood of success, and possible results of non-treatment, and the patient or the legally responsible person has agreed to proceed. Rhea [facility] [id number] 10:09:39Upcoming Encounters Health Maintenance Due Date Last Done Comments Bone Density Scan 1958 CT Colonography 1958 Colonoscopy 1958 Colorectal Cancer Screening 1958 FIT-DNA 1958 FIT 1958 FOBT 1958 Sigmoidoscopy 1958 Diabetes: Foot Exam 1968 Diabetes: Retinopathy Screening 1968 DTaP/Tdap/Td Vaccines (1 - Tdap) 1977 Diabetes: Urine Protein Screening 1977 Mammogram 1998 Zoster Vaccines (1 of 2) 2008 Pneumococcal Vaccine: 65+ Ye ars (2 of 2 - PCV) 12/27/2014 12/27/2013 Respiratory Syncytial Virus (RSV) or >=60 (1 - 1-dose 60+ series) 2018 Medicare Annual Wellness (AWV) 04/13/2024 03/14/2023 Influenza Vaccine (#1) 2024 12/27/2013 Diabetes: Hemoglobin A1C 09/18/2024 03/18/2024 Lipid Panel 03/18/2025 03/18/2024 HIB Vaccines Aged Out No longer eligi ble based on patient's age to complete this topic HPV Vaccines Aged Out No longer eligi ble based on patient's age to complete this topic Hepatitis A Vaccines Aged Out No long er eligible based on patient's age to complete this topic Hepatitis B Vaccines Aged Out No long er eligible based on patient's age to complete this topic IPV Vaccines Aged Out No longer eligi ble based on patient's age to complete this topic Meningococcal Vaccine Aged Out No [place] sandy eligible based on patient's age to complete this topic Rotavirus Vaccines Aged Out No longer eligible based on patient's age to complete this topic [facility] [id number] 10:09:39 Diagnosis Abnormal foot finding - Prim mireya [facility] [id number] 10:09:39 [facility] [id number] 10:15:05* Sheeba Aviles, [facility] - 07/25/2024 9:20 AM CDT CHIEF COMPLAINT: RFC EXOSTOSIS/BUNION, RIGHT HISTORY OF PRESENT ILLNESS: Patient returns for right foot bunion eval, s/p BILATERAL surgical correction (Dr Nick), approximately 2014 Patient states pain during ambulation due to irritation within the shoe gear from the large exostosis at the RIGHT dorsal medial 1st metatarsophalangeal joint Patient currently denies infection, injury, open wounds Patient states pain currently rated 2/10 on palpation, right dorsal medial 1st metatarsal head --- Patient returns for routine pedal evaluation in hopes to avoid complications in the lower extremity due to multiple high risk comorbidities Patient also requesting of x-rays at previous bunion surgery, right foot 1st metatarsophalangeal joint Patient states nails are painful, thick, and elongated. Patient denies infection, injury, wounds Patient states periodic pain with prolonged ambulation at work, right foot 1st metatarsophalangeal joint Patient states most recent fasting blood sugar was tested this morning with a value of 128 mg/dl. PHYSICAL EXAM OF THE LOWER EXTREMITY: Vascular: (-) edema symmetrical to bilateral lower extremity, (-) ecchymosis, (-) erythema 2/4 Dorsal pedis pulse, bilateral 2/4 Posterior tibial pulse, bilateral (+) normal Capillary Refill time (+) varicosities, (-) pedal hair growth Neurological: (+) mixed sensation with 5.07 Bancroft Danika monofilament examination to the most distal lower extremity (+) normal response to hot, cold, sharp, blunted and vibratory sensations. (-) clonus present. Dermatological: (+) scar, dorsal medial RIGHT 1st metatarsophalangeal joint (+) Nails are thick, yellow, elongated. Debrided without complications (+) resolved nail biopsy site, left 2nd digit (-) signs of soft tissue infection, (-) open wounds, (-) macerations (-) abscess (-) ischemic tissue (+) normal temperature when compared to contralateral limb (+) normal color, tugor, and elasticity. Musculoskeletal: (+) Mild pain on palpation at large exostosis, RIGHT dorsal medial 1st metatarsal head (-) pain on palpation through the lower extremity (+) Semi-rigid hammertoe deformities, BILATERAL (-) other gross osseous abnormalities 5/5 muscle strength to extrinsic pedal muscle groups (-) evidence of compartment syndrome, (-) evidence of deep vein thrombosis X-rays bilateral feet 07/20/2024: (+) Large exostosis, right dorsal medial 1st metatarsal head (+) well aligned/corrected bunion deformity (+) hardware intact at the BILATERAL midshaft 1st proximal phalanx Pathology left 2nd digit nail biopsy 03/28/2023: (+) cladosporium species. ASSESSMENT: Exostosis /Bunion, right Onychomycosis, bilateral feet --- Diabetes type 2 with neuropathy. TREATMENT PLAN: - Extensive office visit discussing possible pedal complications associated prolonged and enlarged exostosis - Nails - debrided without complications - nail biopsy - biopsy site is resolved therefore no bandage indicated, use topical antifungal - Medication - moisturize feet daily to help prevent ulcerations and xerosis - X-RAYS - reviewed - Vascular - no further intervention indicated palpable pedal pulses, no open wounds, no ischemic tissue. - Edema - compression stockings advised - Shoes - patient educated to obtain diabetic shoes, custom molded inserts - Diabetic management - spent significant time discussing and educating patient about appropriate diabetic management and care for the lower extremity. Patient also advised to follow-up with detailed regimen with PCP - orthotics - patient defers custom and understands risks, patient advised to obtain [id number] -weight bearing - as tolerated in well protective shoes with wide toe box to reduce pressure from painful exostosis - ONCOLOGY- PLANNING visit with heme oncologist due to abnormal blood values found in preparation for shoulder surgery - surgery - exostectomy, RIGHT dorsal medial 1st metatarsal head (delayed until after RIGHT shoulder surgery) - Return 4 weeks for surgical discussion and possible custom orthotics imaging review (may consider surgery with needing ankle recon at [facility] in [place]) Patient advised to report to my clinic or the emergency room immediately with any questions or concerns. Patient Instructions: Discussion: A detailed discussion was provided to the patient with specific reference to etiology, pathology, alternate treatment options, and prognosis. All risks and complications (including side effects) with each treatment/medication alternative were outlined in detail including but not limited to: Pain, swelling, numbness, loss of function, loss of limb, bleeding, hematoma, scarring, failure to relieve condition, surgery, additional/revisional surgery, reflex sympathetic dystrophy, complex regional pain syndrome, reoccurrence of deformity, joint stiffness, flail toe, bone and/or soft tissue infection, blood clots, pulmonary embolism, possible , delayed or non-healing. X-rays, graphs and drawings were all used to assist with patient comprehension when appropriate. All patients questions were answered and stated they fully understood. No guarantee as to results or outcome of treatment was made. I have discussed with the patient or legally responsible person prior to obtaining consent: the risks, potential benefits and drawbacks, significant alternatives, potential for problems related to recuperation, likelihood of success, and possible results of non-treatment, and the patient or the legally responsible person has agreed to proceed. [place] [id number] 10:15:05Upcoming Encounters Health Maintenance Due Date Last Done Comments CT Colonography 1958 Colonoscopy 1958 Colorectal Cancer Screening 1958 FIT-DNA 1958 FIT 1958 FOBT 1958 Sigmoidoscopy 1958 Diabetes: Foot Exam 1968 Diabetes: Retinopathy Screening 1968 DTaP/Tdap/Td Vaccines (1 - Tdap) 1977 Diabetes: Urine Protein Screening 1977 Mammogram 1998 Zoster Vaccines (1 of 2) 2008 Pneumococcal Vaccine: 65+ Ye ars (2 of 2 - PCV) 12/27/2014 12/27/2013 Respiratory Syncytial Virus (RSV) or >=60 (1 - 1-dose 60+ series) 2018 Medicare Annual Wellness (AWV) 04/13/2024 03/14/2023 Diabetes: Hemoglobin A1C 06/18/2024 03/18/2024 Influenza Vaccine (#1) 2024 12/27/2013 Lipid Panel 03/18/2025 03/18/2024 HIB Vaccines Aged Out No longer eligi ble based on patient's age to complete this topic HPV Vaccines Aged Out No longer eligi ble based on patient's age to complete this topic Hepatitis A Vaccines Aged Out No long er eligible based on patient's age to complete this topic Hepatitis B Vaccines Aged Out No long er eligible based on patient's age to complete this topic IPV Vaccines Aged Out No longer eligi ble based on patient's age to complete this topic Meningococcal Vaccine Aged Out No [place] eligible based on patient's age to complete this topic Rotavirus Vaccines Aged Out No longer eligible based on patient's age to complete this topic [facility] [id number] 10:15:05 Diagnosis Abnormal foot finding - Prim mireya [facility] [id number] 10:15:05 [facility] [id number] 10:15:04* Sheeba Aviles, [facility] - 07/25/2024 9:20 AM CDT CHIEF COMPLAINT: RFC EXOSTOSIS/BUNION, RIGHT HISTORY OF PRESENT ILLNESS: Patient returns for right foot bunion eval, s/p BILATERAL surgical correction (Dr Nick), approximately 2014 Patient states pain during ambulation due to irritation within the shoe gear from the large exostosis at the RIGHT dorsal medial 1st metatarsophalangeal joint Patient currently denies infection, injury, open wounds Patient states pain currently rated 2/10 on palpation, right dorsal medial 1st metatarsal head --- Patient returns for routine pedal evaluation in hopes to avoid complications in the lower extremity due to multiple high risk comorbidities Patient also requesting of x-rays at previous bunion surgery, right foot 1st metatarsophalangeal joint Patient states nails are painful, thick, and elongated. Patient denies infection, injury, wounds Patient states periodic pain with prolonged ambulation at work, right foot 1st metatarsophalangeal joint Patient states most recent fasting blood sugar was tested this morning with a value of 128 mg/dl. PHYSICAL EXAM OF THE LOWER EXTREMITY: Vascular: (-) edema symmetrical to bilateral lower extremity, (-) ecchymosis, (-) erythema 2/4 Dorsal pedis pulse, bilateral 2/4 Posterior tibial pulse, bilateral (+) normal Capillary Refill time (+) varicosities, (-) pedal hair growth Neurological: (+) mixed sensation with 5.07 Bancroft Danika monofilament examination to the most distal lower extremity (+) normal response to hot, cold, sharp, blunted and vibratory sensations. (-) clonus present. Dermatological: (+) scar, dorsal medial RIGHT 1st metatarsophalangeal joint (+) Nails are thick, yellow, elongated. Debrided without complications (+) resolved nail biopsy site, left 2nd digit (-) signs of soft tissue infection, (-) open wounds, (-) macerations (-) abscess (-) ischemic tissue (+) normal temperature when compared to contralateral limb (+) normal color, tugor, and elasticity. Musculoskeletal: (+) Mild pain on palpation at large exostosis, RIGHT dorsal medial 1st metatarsal head (-) pain on palpation through the lower extremity (+) Semi-rigid hammertoe deformities, BILATERAL (-) other gross osseous abnormalities 5/5 muscle strength to extrinsic pedal muscle groups (-) evidence of compartment syndrome, (-) evidence of deep vein thrombosis X-rays bilateral feet 07/20/2024: (+) Large exostosis, right dorsal medial 1st metatarsal head (+) well aligned/corrected bunion deformity (+) hardware intact at the BILATERAL midshaft 1st proximal phalanx Pathology left 2nd digit nail biopsy 03/28/2023: (+) cladosporium species. ASSESSMENT: Exostosis /Bunion, right Onychomycosis, bilateral feet --- Diabetes type 2 with neuropathy. TREATMENT PLAN: - Extensive office visit discussing possible pedal complications associated prolonged and enlarged exostosis - Nails - debrided without complications - nail biopsy - biopsy site is resolved therefore no bandage indicated, use topical antifungal - Medication - moisturize feet daily to help prevent ulcerations and xerosis - X-RAYS - reviewed - Vascular - no further intervention indicated palpable pedal pulses, no open wounds, no ischemic tissue. - Edema - compression stockings advised - Shoes - patient educated to obtain diabetic shoes, custom molded inserts - Diabetic management - spent significant time discussing and educating patient about appropriate diabetic management and care for the lower extremity. Patient also advised to follow-up with detailed regimen with PCP - orthotics - patient defers custom and understands risks, patient advised to obtain [id number] -weight bearing - as tolerated in well protective shoes with wide toe box to reduce pressure from painful exostosis - ONCOLOGY- PLANNING visit with heme oncologist due to abnormal blood values found in preparation for shoulder surgery - surgery - exostectomy, RIGHT dorsal medial 1st metatarsal head (delayed until after RIGHT shoulder surgery) - Return 4 weeks for surgical discussion and possible custom orthotics imaging review (may consider surgery with needing ankle recon at [facility] in [place]) Patient advised to report to my clinic or the emergency room immediately with any questions or concerns. Patient Instructions: Discussion: A detailed discussion was provided to the patient with specific reference to etiology, pathology, alternate treatment options, and prognosis. All risks and complications (including side effects) with each treatment/medication alternative were outlined in detail including but not limited to: Pain, swelling, numbness, loss of function, loss of limb, bleeding, hematoma, scarring, failure to relieve condition, surgery, additional/revisional surgery, reflex sympathetic dystrophy, complex regional pain syndrome, reoccurrence of deformity, joint stiffness, flail toe, bone and/or soft tissue infection, blood clots, pulmonary embolism, possible , delayed or non-healing. X-rays, graphs and drawings were all used to assist with patient comprehension when appropriate. All patients questions were answered and stated they fully understood. No guarantee as to results or outcome of treatment was made. I have discussed with the patient or legally responsible person prior to obtaining consent: the risks, potential benefits and drawbacks, significant alternatives, potential for problems related to recuperation, likelihood of success, and possible results of non-treatment, and the patient or the legally responsible person has agreed to proceed. [facility] [id number] 10:15:04Upcoming Encounters Health Maintenance Due Date Last Done Comments CT Colonography 1958 Colonoscopy 1958 Colorectal Cancer Screening 1958 FIT-DNA 1958 FIT 1958 FOBT 1958 Sigmoidoscopy 1958 Diabetes: Foot Exam 1968 Diabetes: Retinopathy Screening 1968 DTaP/Tdap/Td Vaccines (1 - Tdap) 1977 Diabetes: Urine Protein Screening 1977 Mammogram 1998 Zoster Vaccines (1 of 2) 2008 Pneumococcal Vaccine: 65+ Ye ars (2 of 2 - PCV) 12/27/2014 12/27/2013 Respiratory Syncytial Virus (RSV) or >=60 (1 - 1-dose 60+ series) 2018 Medicare Annual Wellness (AWV) 04/13/2024 03/14/2023 Diabetes: Hemoglobin A1C 06/18/2024 03/18/2024 Influenza Vaccine (#1) 2024 12/27/2013 Lipid Panel 03/18/2025 03/18/2024 HIB Vaccines Aged Out No longer eligi ble based on patient's age to complete this topic HPV Vaccines Aged Out No longer eligi ble based on patient's age to complete this topic Hepatitis A Vaccines Aged Out No long er eligible based on patient's age to complete this topic Hepatitis B Vaccines Aged Out No long er eligible based on patient's age to complete this topic IPV Vaccines Aged Out No longer eligi ble based on patient's age to complete this topic Meningococcal Vaccine Aged Out No [place] eligible based on patient's age to complete this topic Rotavirus Vaccines Aged Out No longer eligible based on patient's age to complete this topic [facility] [id number] 10:15:04 Diagnosis Abnormal foot finding - Prim mireya [facility] [id number] 10:15:04 [facility] [id number] 11:10:40* Sheeba Aviles DPM - 07/09/2024 9:20 AM CDT CHIEF COMPLAINT: RFC BUNION, RIGHT HISTORY OF PRESENT ILLNESS: Patient returns for routine pedal evaluation in hopes to avoid complications in the lower extremity due to multiple high risk comorbidities Patient also requesting of x-rays at previous bunion surgery, right foot 1st metatarsophalangeal joint Patient states nails are painful, thick, and elongated. Patient denies infection, injury, wounds Patient states periodic pain with prolonged ambulation at work, right foot 1st metatarsophalangeal joint Patient states most recent fasting blood sugar was tested this morning with a value of 128 mg/dl. PHYSICAL EXAM OF THE LOWER EXTREMITY: Vascular: (-) edema symmetrical to bilateral lower extremity, (-) ecchymosis, (-) erythema 2/4 Dorsal pedis pulse, bilateral 2/4 Posterior tibial pulse, bilateral (+) normal Capillary Refill time (+) varicosities, (-) pedal hair growth Neurological: (+) mixed sensation with 5.07 Bancroft Danika monofilament examination to the most distal lower extremity (+) normal response to hot, cold, sharp, blunted and vibratory sensations. (-) clonus present. Dermatological: (+) scar, dorsal medial RIGHT 1st metatarsophalangeal joint (+) Nails are thick, yellow, elongated. Debrided without complications (+) resolved nail biopsy site, left 2nd digit (-) signs of soft tissue infection, (-) open wounds, (-) macerations (-) abscess (-) ischemic tissue (+) normal temperature when compared to contralateral limb (+) normal color, tugor, and elasticity. Musculoskeletal: (+)Mild pain on palpation and with range of motion, RIGHT 1st metatarsophalangeal joint (-) pain on palpation through the lower extremity (+) Semi-rigid hammertoe deformities, BILATERAL (-) other gross osseous abnormalities 5/5 muscle strength to extrinsic pedal muscle groups (-) evidence of compartment syndrome, (-) evidence of deep vein thrombosis Pathology left 2nd digit nail biopsy 03/28/2023: (+) cladosporium species. ASSESSMENT: Bunion, right Onychomycosis, bilateral feet --- Diabetes type 2 with neuropathy. TREATMENT PLAN: - Extensive office visit with grandson discussing possible pedal complications associated with co-morbidities - Nails - debrided without complications - nail biopsy - biopsy site is resolved therefore no bandage indicated, use topical antifungal - Medication - moisturize feet daily to help prevent ulcerations and xerosis - X-RAYS -ORDERED 07/09, bunion eval - Vascular - no further intervention indicated palpable pedal pulses, no open wounds, no ischemic tissue. - Edema - compression stockings advised - Shoes - patient educated to obtain diabetic shoes, custom molded inserts - Diabetic management - spent significant time discussing and educating patient about appropriate diabetic management and care for the lower extremity. Patient also advised to follow-up with detailed regimen with PCP - Return 2 weeks for imaging review ( may consider surgery with needing ankle recon at [facility] in [facility]) Patient advised to report to my clinic or the emergency room immediately with any questions or concerns. Patient Instructions: Discussion: A detailed discussion was provided to the patient with specific reference to etiology, pathology, alternate treatment options, and prognosis. All risks and complications (including side effects) with each treatment/medication alternative were outlined in detail including but not limited to: Pain, swelling, numbness, loss of function, loss of limb, bleeding, hematoma, scarring, failure to relieve condition, surgery, additional/revisional surgery, reflex sympathetic dystrophy, complex regional pain syndrome, reoccurrence of deformity, joint stiffness, flail toe, bone and/or soft tissue infection, blood clots, pulmonary embolism, possible , delayed or non-healing. X-rays, graphs and drawings were all used to assist with patient comprehension when appropriate. All patients questions were answered and stated they fully understood. No guarantee as to results or outcome of treatment was made. I have discussed with the patient or legally responsible person prior to obtaining consent: the risks, potential benefits and drawbacks, significant alternatives, potential for problems related to recuperation, likelihood of success, and possible results of non-treatment, and the patient or the legally responsible person has agreed to proceed. [facility] [id number] 11:10:40Upcoming Encounters Health Maintenance Due Date Last Done Comments CT Colonography 1958 Colonoscopy 1958 Colorectal Cancer Screening 1958 FIT-DNA 1958 FIT 1958 FOBT 1958 Sigmoidoscopy 1958 Diabetes: Foot Exam 1968 Diabetes: Retinopathy Screening 1968 DTaP/Tdap/Td Vaccines (1 - Tdap) 1977 Diabetes: Urine Protein Screening 1977 Mammogram 1998 Zoster Vaccines (1 of 2) 2008 Pneumococcal Vaccine: 65+ Ye ars (2 of 2 - PCV) 12/27/2014 12/27/2013 Respiratory Syncytial Virus (RSV) or >=60 (1 - 1-dose 60+ series) 2018 Medicare Annual Wellness (AWV) 04/13/2024 03/14/2023 Diabetes: Hemoglobin A1C 06/18/2024 03/18/2024 Influenza Vaccine (#1) 2024 12/27/2013 Lipid Panel 03/18/2025 03/18/2024 HIB Vaccines Aged Out No longer eligi ble based on patient's age to complete this topic HPV Vaccines Aged Out No longer eligi ble based on patient's age to complete this topic Hepatitis A Vaccines Aged Out No long er eligible based on patient's age to complete this topic Hepatitis B Vaccines Aged Out No long er eligible based on patient's age to complete this topic IPV Vaccines Aged Out No longer eligi ble based on patient's age to complete this topic Meningococcal Vaccine Aged Out No [place] eligible based on patient's age to complete this topic Rotavirus Vaccines Aged Out No longer eligible based on patient's age to complete this topic [facility] [id number] 11:10:40 Diagnosis Abnormal foot finding - Prim mireya [facility] [id number] 11:10:40 [facility] [id number] 11:10:40* Sheeba Aviles DPM - 07/09/2024 9:20 AM CDT CHIEF COMPLAINT: RFC BUNION, RIGHT HISTORY OF PRESENT ILLNESS: Patient returns for routine pedal evaluation in hopes to avoid complications in the lower extremity due to multiple high risk comorbidities Patient also requesting of x-rays at previous bunion surgery, right foot 1st metatarsophalangeal joint Patient states nails are painful, thick, and elongated. Patient denies infection, injury, wounds Patient states periodic pain with prolonged ambulation at work, right foot 1st metatarsophalangeal joint Patient states most recent fasting blood sugar was tested this morning with a value of 128 mg/dl. PHYSICAL EXAM OF THE LOWER EXTREMITY: Vascular: (-) edema symmetrical to bilateral lower extremity, (-) ecchymosis, (-) erythema 2/4 Dorsal pedis pulse, bilateral 2/4 Posterior tibial pulse, bilateral (+) normal Capillary Refill time (+) varicosities, (-) pedal hair growth Neurological: (+) mixed sensation with 5.07 Bancroft Danika monofilament examination to the most distal lower extremity (+) normal response to hot, cold, sharp, blunted and vibratory sensations. (-) clonus present. Dermatological: (+) scar, dorsal medial RIGHT 1st metatarsophalangeal joint (+) Nails are thick, yellow, elongated. Debrided without complications (+) resolved nail biopsy site, left 2nd digit (-) signs of soft tissue infection, (-) open wounds, (-) macerations (-) abscess (-) ischemic tissue (+) normal temperature when compared to contralateral limb (+) normal color, tugor, and elasticity. Musculoskeletal: (+)Mild pain on palpation and with range of motion, RIGHT 1st metatarsophalangeal joint (-) pain on palpation through the lower extremity (+) Semi-rigid hammertoe deformities, BILATERAL (-) other gross osseous abnormalities 5/5 muscle strength to extrinsic pedal muscle groups (-) evidence of compartment syndrome, (-) evidence of deep vein thrombosis Pathology left 2nd digit nail biopsy 03/28/2023: (+) cladosporium species. ASSESSMENT: Bunion, right Onychomycosis, bilateral feet --- Diabetes type 2 with neuropathy. TREATMENT PLAN: - Extensive office visit with grandson discussing possible pedal complications associated with co-morbidities - Nails - debrided without complications - nail biopsy - biopsy site is resolved therefore no bandage indicated, use topical antifungal - Medication - moisturize feet daily to help prevent ulcerations and xerosis - X-RAYS -ORDERED 07/09, mindy eval - Vascular - no further intervention indicated palpable pedal pulses, no open wounds, no ischemic tissue. - Edema - compression stockings advised - Shoes - patient educated to obtain diabetic shoes, custom molded inserts - Diabetic management - spent significant time discussing and educating patient about appropriate diabetic management and care for the lower extremity. Patient also advised to follow-up with detailed regimen with PCP - Return 2 weeks for imaging review ( may consider surgery with needing ankle recon at [facility] in [facility]) Patient advised to report to my clinic or the emergency room immediately with any questions or concerns. Patient Instructions: Discussion: A detailed discussion was provided to the patient with specific reference to etiology, pathology, alternate treatment options, and prognosis. All risks and complications (including side effects) with each treatment/medication alternative were outlined in detail including but not limited to: Pain, swelling, numbness, loss of function, loss of limb, bleeding, hematoma, scarring, failure to relieve condition, surgery, additional/revisional surgery, reflex sympathetic dystrophy, complex regional pain syndrome, reoccurrence of deformity, joint stiffness, flail toe, bone and/or soft tissue infection, blood clots, pulmonary embolism, possible , delayed or non-healing. X-rays, graphs and drawings were all used to assist with patient comprehension when appropriate. All patients questions were answered and stated they fully understood. No guarantee as to results or outcome of treatment was made. I have discussed with the patient or legally responsible person prior to obtaining consent: the risks, potential benefits and drawbacks, significant alternatives, potential for problems related to recuperation, likelihood of success, and possible results of non-treatment, and the patient or the legally responsible person has agreed to proceed. [place] [id number] 11:10:40Upcoming Encounters Health Maintenance Due Date Last Done Comments CT Colonography 1958 Colonoscopy 1958 Colorectal Cancer Screening 1958 FIT-DNA 1958 FIT 1958 FOBT 1958 Sigmoidoscopy 1958 Diabetes: Foot Exam 1968 Diabetes: Retinopathy Screening 1968 DTaP/Tdap/Td Vaccines (1 - Tdap) 1977 Diabetes: Urine Protein Screening 1977 Mammogram 1998 Zoster Vaccines (1 of 2) 2008 Pneumococcal Vaccine: 65+ Ye ars (2 of 2 - PCV) 12/27/2014 12/27/2013 Respiratory Syncytial Virus (RSV) or >=60 (1 - 1-dose 60+ series) 2018 Medicare Annual Wellness (AWV) 04/13/2024 03/14/2023 Diabetes: Hemoglobin A1C 06/18/2024 03/18/2024 Influenza Vaccine (#1) 2024 12/27/2013 Lipid Panel 03/18/2025 03/18/2024 HIB Vaccines Aged Out No longer eligi ble based on patient's age to complete this topic HPV Vaccines Aged Out No longer eligi ble based on patient's age to complete this topic Hepatitis A Vaccines Aged Out No long er eligible based on patient's age to complete this topic Hepatitis B Vaccines Aged Out No long er eligible based on patient's age to complete this topic IPV Vaccines Aged Out No longer eligi ble based on patient's age to complete this topic Meningococcal Vaccine Aged Out No [place] eligible based on patient's age to complete this topic Rotavirus Vaccines Aged Out No longer eligible based on patient's age to complete this topic [facility] [id number] 11:10:40 Diagnosis Abnormal foot finding - Prim mireya [facility] [id number] 11:10:40 [facility] [id number] 15:44:24* Sheeba Aviles, CAROLIN - 04/11/2024 10:10 AM CDT History of Present Illness RFC --- Patient returns for routine pedal evaluation in hopes to avoid complications in the lower extremity due to multiple high risk comorbidities Patient states nails are painful, thick, and elongated. Patient states nail biopsy site has resolved Patient denies other pain, infection, injury, wounds Patient states most recent fasting blood sugar was tested this morning with a value of 129 mg/dl. Physical Exam: Lower Extremity Exam: Vascular: (-) edema symmetrical to bilateral lower extremity, (-) ecchymosis, (-) erythema 2/4 Dorsal pedis pulse, bilateral 2/4 Posterior tibial pulse, bilateral (+) normal Capillary Refill time (+) varicosities, (-) pedal hair growth Neurological: (+) mixed sensation with 5.07 Bancroft Danika monofilament examination to the most distal lower extremity (+) normal response to hot, cold, sharp, blunted and vibratory sensations. (-) clonus present. Dermatological: (+) Nails are thick, yellow, elongated. Debrided without complications (+) resolved nail biopsy site, left 2nd digit (-) signs of soft tissue infection, (-) open wounds, (-) macerations (-) abscess (-) ischemic tissue (+) normal temperature when compared to contralateral limb (+) normal color, tugor, and elasticity. Musculoskeletal: (-) pain on palpation through the lower extremity (+) Semi-rigid hammertoe deformities, BILATERAL (-) other gross osseous abnormalities 5/5 muscle strength to extrinsic pedal muscle groups (-) evidence of compartment syndrome, (-) evidence of deep vein thrombosis Pathology left 2nd digit nail biopsy 03/28/2023: (+) cladosporium species. Assessments Onychomycosis - B35.1 Paronychia, nails 1-10 --- Diabetes type 2 with neuropathy. Treatment - Extensive office visit discussing possible pedal complications associated with co-morbidities - Nails - debrided without complications - NAIL BIOPSY - biopsy site is resolved therefore no bandage indicated, use topical antifungal - Medication - moisturize feet daily to help prevent ulcerations and xerosis - Vascular - no further intervention indicated palpable pedal pulses, no open wounds, no ischemic tissue. - Edema - compression stockings advised - Shoes - patient educated to obtain diabetic shoes, custom molded inserts - Diabetic management - spent significant time discussing and educating patient about appropriate diabetic management and care for the lower extremity. Patient also advised to follow-up with detailed regimen with PCP - Return in 12 weeks for routine pedal care. Patient advised to report to my clinic or the emergency room immediately with any questions or concerns. Patient Instructions: Discussion: A detailed discussion was provided to the patient with specific reference to etiology, pathology, alternate treatment options, and prognosis. All risks and complications (including side effects) with each treatment/medication alternative were outlined in detail including but not limited to: Pain, swelling, numbness,loss of function, loss of limb, bleeding, hematoma, scarring, failure to relieve condition, surgery, additional/revisional surgery, reflex sympathetic dystrophy, complex regional pain syndrome, reoccurrence of deformity, joint stiffness, flail toe, bone and/or soft tissue infection, blood clots, pulmonary embolism, possible ,delayed or non-healing. X-rays, graphs and drawings were all used to assist with patient comprehension when appropriate. All patients questions were answered and stated they fully understood. No guarantee as to results or outcome of treatment was made. I have discussed with the patient or legally responsible person prior to obtaining consent: the risks, potential benefits and drawbacks, significant alternatives, potential for problems related to recuperation, likelihood of success, and possible results of non-treatment, and the patient or the legally responsible person has agreed to proceed. [facility]2024-07-02 15:44:24Upcoming Encounters Health Maintenance Due Date Last Done Comments CT Colonography 1958 Colonoscopy 1958 Colorectal Cancer Screening 1958 FIT-DNA 1958 FIT 1958 FOBT 1958 Sigmoidoscopy 1958 Pneumococcal Vaccine: 65+ Ye ars (1 of 2 - PCV) 1964 Diabetes: Foot Exam 1968 Diabetes: Retinopathy Screening 1968 DTaP/Tdap/Td Vaccines (1 - Tdap) 1977 Diabetes: Urine Protein Screening 1977 Mammogram 1998 Zoster Vaccines (1 of 2) 2008 Respiratory Syncytial Virus (RSV) or >=60 (1 - 1-dose 60+ series) 2018 Medicare Annual Wellness (AWV) 04/13/2024 03/14/2023 Diabetes: Hemoglobin A1C 06/18/2024 03/18/2024 Influenza Vaccine (#1) 2024 Lipid Panel 03/18/2025 03/18/2024 HIB Vaccines Aged Out No longer eligi ble based on patient's age to complete this topic HPV Vaccines Aged Out No longer eligi ble based on patient's age to complete this topic Hepatitis A Vaccines Aged Out No long er eligible based on patient's age to complete this topic Hepatitis B Vaccines Aged Out No long er eligible based on patient's age to complete this topic IPV Vaccines Aged Out No longer eligi ble based on patient's age to complete this topic Meningococcal Vaccine Aged Out No [place] eligible based on patient's age to complete this topic Rotavirus Vaccines Aged Out No longer eligible based on patient's age to complete this topic [place] [id number] 15:44:24 Diagnosis Abnormal foot finding - Prim mireya [facility] [id number] 15:44:24 [place] [id number] 15:44:24* Sheeba Aviles, CAROLIN - 04/11/2024 10:10 AM CDT History of Present Illness [facility] --- Patient returns for routine pedal evaluation in hopes to avoid complications in the lower extremity due to multiple high risk comorbidities Patient states nails are painful, thick, and elongated. Patient states nail biopsy site has resolved Patient denies other pain, infection, injury, wounds Patient states most recent fasting blood sugar was tested this morning with a value of 129 mg/dl. Physical Exam: Lower Extremity Exam: Vascular: (-) edema symmetrical to bilateral lower extremity, (-) ecchymosis, (-) erythema 2/4 Dorsal pedis pulse, bilateral 2/4 Posterior tibial pulse, bilateral (+) normal Capillary Refill time (+) varicosities, (-) pedal hair growth Neurological: (+) mixed sensation with 5.07 Bancroft Danika monofilament examination to the most distal lower extremity (+) normal response to hot, cold, sharp, blunted and vibratory sensations. (-) clonus present. Dermatological: (+) Nails are thick, yellow, elongated. Debrided without complications (+) resolved nail biopsy site, left 2nd digit (-) signs of soft tissue infection, (-) open wounds, (-) macerations (-) abscess (-) ischemic tissue (+) normal temperature when compared to contralateral limb (+) normal color, tugor, and elasticity. Musculoskeletal: (-) pain on palpation through the lower extremity (+) Semi-rigid hammertoe deformities, BILATERAL (-) other gross osseous abnormalities 5/5 muscle strength to extrinsic pedal muscle groups (-) evidence of compartment syndrome, (-) evidence of deep vein thrombosis Pathology left 2nd digit nail biopsy 03/28/2023: (+) cladosporium species. Assessments Onychomycosis - B35.1 Paronychia, nails 1-10 --- Diabetes type 2 with neuropathy. Treatment - Extensive office visit discussing possible pedal complications associated with co-morbidities - Nails - debrided without complications - NAIL BIOPSY - biopsy site is resolved therefore no bandage indicated, use topical antifungal - Medication - moisturize feet daily to help prevent ulcerations and xerosis - Vascular - no further intervention indicated palpable pedal pulses, no open wounds, no ischemic tissue. - Edema - compression stockings advised - Shoes - patient educated to obtain diabetic shoes, custom molded inserts - Diabetic management - spent significant time discussing and educating patient about appropriate diabetic management and care for the lower extremity. Patient also advised to follow-up with detailed regimen with PCP - Return in 12 weeks for routine pedal care. Patient advised to report to my clinic or the emergency room immediately with any questions or concerns. Patient Instructions: Discussion: A detailed discussion was provided to the patient with specific reference to etiology, pathology, alternate treatment options, and prognosis. All risks and complications (including side effects) with each treatment/medication alternative were outlined in detail including but not limited to: Pain, swelling, numbness,loss of function, loss of limb, bleeding, hematoma, scarring, failure to relieve condition, surgery, additional/revisional surgery, reflex sympathetic dystrophy, complex regional pain syndrome, reoccurrence of deformity, joint stiffness, flail toe, bone and/or soft tissue infection, blood clots, pulmonary embolism, possible ,delayed or non-healing. X-rays, graphs and drawings were all used to assist with patient comprehension when appropriate. All patients questions were answered and stated they fully understood. No guarantee as to results or outcome of treatment was made. I have discussed with the patient or legally responsible person prior to obtaining consent: the risks, potential benefits and drawbacks, significant alternatives, potential for problems related to recuperation, likelihood of success, and possible results of non-treatment, and the patient or the legally responsible person has agreed to proceed. [facility] [id number] 15:44:24Upcoming Encounters Health Maintenance Due Date Last Done Comments CT Colonography 1958 Colonoscopy 1958 Colorectal Cancer Screening 1958 FIT-DNA 1958 FIT 1958 FOBT 1958 Sigmoidoscopy 1958 Pneumococcal Vaccine: 65+ Ye ars (1 of 2 - PCV) 1964 Diabetes: Foot Exam 1968 Diabetes: Retinopathy Screening 1968 DTaP/Tdap/Td Vaccines (1 - Tdap) 1977 Diabetes: Urine Protein Screening 1977 Mammogram 1998 Zoster Vaccines (1 of 2) 2008 Respiratory Syncytial Virus (RSV) or >=60 (1 - 1-dose 60+ series) 2018 Medicare Annual Wellness (AWV) 04/13/2024 03/14/2023 Diabetes: Hemoglobin A1C 06/18/2024 03/18/2024 Influenza Vaccine (#1) 2024 Lipid Panel 03/18/2025 03/18/2024 HIB Vaccines Aged Out No longer eligi ble based on patient's age to complete this topic HPV Vaccines Aged Out No longer eligi ble based on patient's age to complete this topic Hepatitis A Vaccines Aged Out No long er eligible based on patient's age to complete this topic Hepatitis B Vaccines Aged Out No long er eligible based on patient's age to complete this topic IPV Vaccines Aged Out No longer eligi ble based on patient's age to complete this topic Meningococcal Vaccine Aged Out No [place] eligible based on patient's age to complete this topic Rotavirus Vaccines Aged Out No longer eligible based on patient's age to complete this topic [facility] [id number] 15:44:24 Diagnosis Abnormal foot finding - Prim mireya [facility] [id number] 15:44:24 [facility]
[2025-06-29] MEDS ORDERED: HYDROCODONE/APAP 5/325 MG TAB ONE (15:19)
--- NOTE | 2025-06-29 15:37 | RAD REPORT ---
EXAMINATION: CT HEAD WITHOUT CONTRAST CT CERVICAL SPINE WITHOUT CONTRAST CLINICAL INDICATION: Head and neck injury status post fall. Head and neck pain TECHNIQUE: Axial CT images from the skull base to the vertex without intravenous contrast. Axial CT i mages through the cervical spine were obtained without intravenous contrast. Sagittal and coronal reformatted images were created from the data set. Coronal and sagittal reformatted images were creat ed from the data set. One or more of the following dose reduction techniques were used: Automated exposure control, adjustment of the mA and/or kV according to patient size, and/or iterative reconstr uction. Unless otherwise specified, incidental findings do not require dedicated imaging follow-up. [id number]. Comparison: 2022 FINDINGS: An intracranial bleed is not seen. Ventricles are normal in caliber. No significant hypodensity within the brain No extra-axial fluid collection. No fluid within the sinuses/mastoids No fracture or dislocation is seen involving the cervical spine. Anterior fusion C5-C7 by plate, screws and bone plugs. No significant change in appearance since prio r exam. IMPRESSION: No acute intracranial abnormality noted A cervical fracture is not seen. If the patient continues to have symptoms to suggest acute SPARK TESTER/spinal pathology then MRI would be rec ommended
--- NOTE | 2025-06-29 15:37 | RAD REPORT ---
Exam:Shoulder Right 2+ Views History: Right shoulder pain Findings: No fracture or dislocation seen
--- NOTE | 2025-06-29 15:45 | RAD REPORT ---
Exam:Hip Right 2 View HISTORY: Right hip pain FINDINGS: No fracture or dislocation seen. If the patient continues to have symptoms to suggest an occult fracture then MRI would be recommended
--- NOTE | 2025-06-29 16:03 | ER ---
Nurse's Notes [facility] Name: Pedro Butts Age: 65 yrs Sex: Male : 1960 Arrival Date: 06/29/2025 Time: 14:25 Bed 2 Private MD: Diagnosis: Mechanical fall, closed head injury, neck strain, right shoulder strain, right hip contusion Presentation: 06/29 14:32 Chief complaint: Patient states: he was cleaning cabinets, when he fell onto his left ap3 shoulder and right hip. patient denies being on blood thinners or any LOC. Patient states he was standing on the counter at the time of his fall. patient currently rates his pain as a 7/10 on the pain scale. Coronavirus screen: At this time, the client does not indicate any symptoms associated with coronavirus-19. Ebola Screen: No symptoms or risks identified at this time. Initial Sepsis Screen: Does the patient meet any 2 criteria? No. Patient's initial sepsis screen is negative. Does the patient have a suspected source of infection? No. Patient's initial sepsis screen is negative. Risk Assessment: Do you want to hurt yourself or someone else? Patient reports no desire to harm self or others. Onset of symptoms was June 29, 2025. 14:32 Method Of Arrival: Ambulatory ap3 14:32 Acuity: DAMIEN 3 ap3 Triage Assessment: 14:35 General: Appears in no apparent distress. Behavior is calm, cooperative, appropriate ap3 for age. Pain: Complains of pain in right hip, right arm and right leg Pain currently is 7 out of 10 on a pain scale. Pain began suddenly. Neuro: Level of Consciousness is awake, alert, obeys commands, Oriented to person, place, time, situation, Appropriate for age. Cardiovascular: Patient's skin is warm and dry. Respiratory: Airway is patent Respiratory effort is even, unlabored, Respiratory pattern is regular, symmetrical. Historical: - Allergies: 14:35 Demerol; ap3 - PMHx: 14:35 Diabetes - IDDM; Diabetes - NIDDM; heart attack; heat stroke; High Cholesterol; ap3 Prostate Cancer; stroke; - PSHx: 14:35 Elbow; feet; neck; stomach; ap3 - Immunization history:: Adult Immunizations up to date. - Infectious Disease History:: Denies. - Social history:: Smoking status: Patient reports the use of cigarette tobacco products, smokes one-half pack cigarettes per day. Screenin:48 [facility] ED Fall Risk Assessment (Adult) History of falling in the last 3 months, dd2 including since admission Yes- single mechanical fall (1 pt) Confusion or Disorientation No (0 pts) Intoxicated or Sedated No (0 pts) Impaired Gait No (0 pts) Mobility Assist Device Used No (0 pt) Altered Elimination No (0 pt) Score/Fall Risk Level 0 - 2 = Low Risk Oriented to surroundings, Maintained a safe environment, Educated pt \T\ family on fall prevention, incl call for assistance when getting out of bed, Assessed \T\ reinforced patient's understanding of fall precautions, Hourly rounding (assess needs \T\ fall precautionary measures) done. Abuse screen: Denies threats or abuse. Denies injuries from another. Nutritional screening: No deficits noted. Tuberculosis screening: No symptoms or risk factors identified. Assessment: 14:48 General: Appears in no apparent distress. uncomfortable, Behavior is calm, cooperative, dd2 appropriate for age. Pain: Complains of pain in right leg and right arm and right hip, HEAD. Neuro: Level of Consciousness is awake, alert, obeys commands, Oriented to person, place, time, situation, Appropriate for age Reports headache in right. Cardiovascular: No deficits noted. Respiratory: No deficits noted. GI: No deficits noted. No signs and/or symptoms were reported involving the gastrointestinal system. : No deficits noted. No signs and/or symptoms were reported regarding the genitourinary system. EENT: No deficits noted. No signs and/or symptoms were reported regarding the EENT system. Derm: No deficits noted. No signs and/or symptoms reported regarding the dermatologic system. Musculoskeletal: Circulation, motion, and sensation intact. Range of motion: intact in all extremities, Tenderness present in right arm Reports pain in right leg and right arm and right hip. Vital Signs: 14:32 BP 141 / 76; Pulse 80; Resp 18; Temp 98.7; Pulse Ox 96% ; Weight 78.93 kg; Height 5 ft. ap3 7 in. ; Pain 7/10; 16:13 BP 128 / 85; Pulse 81; Resp 16; Pulse Ox 95% on R/A; dd2 14:32 Body Mass Index 27.25 (78.93 kg, 170.18 cm) ap3 14:32 Pain Scale: Adult ap3 Clau Coma Score: 14:36 Eye Response: spontaneous(4). Motor Response: obeys commands(6). Verbal Response: ap3 oriented(5). Total: 15. Trauma Score (Adult): 14:36 Eye Response: spontaneous(1); Verbal Response: oriented(1); Motor Response: obeys ap3 commands(2); Systolic BP: > 89 mm Hg(4); Respiratory Rate: 10 to 29 per min(4); Clau Score: 15; Trauma Score: 12 ED Course: 14:28 Patient arrived in ED. ts1 14:28 Brandi Bobby MD is Attending Physician. sp3 14:35 Triage completed. ap3 14:36 Patient maintains SpO2 saturation greater than 95% on room air. ap3 14:37 Arm band placed on right wrist. ap3 14:48 No provider procedures requiring assistance completed. Patient did not have IV access dd2 during this emergency room visit. 14:48 Patient has correct armband on for positive identification. Bed in low position. Call dd2 light in reach. Side rails up X 1. Client placed on continuous cardiac and pulse oximetry monitoring. NIBP monitoring applied. Door closed. Noise minimized. Pillow given. Verbal reassurance given. 15:23 CT Head C Spine In Process Unspecified. EDMS 15:29 Shoulder Right (2 View) XRAY In Process Unspecified. EDMS 15:42 Hip Right 2 View XRAY In Process Unspecified. EDMS 16:02 Ezekiel Alcala MD is Referral Physician. sp3 Administered Medications: 15:44 Drug: HYDROcodone-acetaminophen PO 5 mg-325 mg 2 tabs PO once Route: PO; dd2 16:14 Follow up: Response: No adverse reaction dd2 Medication: 14:48 VIS not applicable for this client. dd2 Outcome: 16:03 Discharge ordered by . sp3 16:29 Discharged to home ambulatory, dd2 16:29 Condition: good 16:29 Discharge instructions given to patient, significant other, Instructed on discharge instructions, follow up and referral plans. medication usage, Demonstrated understanding of instructions, follow-up care, medications, Prescriptions given X 1, 16:29 Patient left the ED. dd2 Signatures: Dispatcher [employer] EDMS Miryam Sotomayor RN RN ap3 Brandi Bobby MD MD sp3 Alicia Sheffield [facility] ts1 GEORGIE MALIK RN RN dd2 Corrections: (The following items were deleted from the chart) 15:16 15:16 HYDROcodone-acetaminophen PO 5 mg-325 mg 2 tabs PO dd2 dd2
--- NOTE | 2025-06-29 16:03 | EDPHYS ---
Physician Documentation [facility] Name: Pedro Butts Age: 65 yrs Sex: Male : 1960 Arrival Date: 06/29/2025 Time: 14:25 Bed 2 Private MD: ED Physician Brandi Bobby HPI: 06/29 15:02 This 65 yrs old Male presents to ER via Ambulatory with complaints of Fall Injury, sp3 Shoulder Pain, Headache. 15:02 65-year-old male with history of diabetes, prior VA, hyperlipidemia, history of sp3 prostate cancer now presents to ED with chief complaint mechanical fall with injury to the right shoulder, right hip and possible head injury. Patient also has history of neck surgery and also has mild neck pain. He denies loss of consciousness, medical prodrome prior to the fall and states it was truly mechanical in nature. ROS otherwise negative.. Historical: - Allergies: 14:35 Demerol; ap3 - PMHx: 14:35 Diabetes - IDDM; Diabetes - NIDDM; heart attack; heat stroke; High Cholesterol; ap3 Prostate Cancer; stroke; - PSHx: 14:35 Elbow; feet; neck; stomach; ap3 - Immunization history:: Adult Immunizations up to date. - Infectious Disease History:: Denies. - Social history:: Smoking status: Patient reports the use of cigarette tobacco products, smokes one-half pack cigarettes per day. ROS: 15:03 Constitutional: Negative for fever, chills, and weight loss, Eyes: Negative for injury, sp3 pain, redness, and discharge, ENT: Negative for injury, pain, and discharge, Cardiovascular: Negative for chest pain, palpitations, and edema, Respiratory: Negative for shortness of breath, cough, wheezing, and pleuritic chest pain, Abdomen/GI: Negative for abdominal pain, nausea, vomiting, diarrhea, and constipation, Back: Negative for injury and pain, Skin: Negative for injury, rash, and discoloration, Neuro: Negative for headache, weakness, numbness, tingling, and seizure, Psych: Negative for depression, anxiety, suicide ideation, homicidal ideation, and hallucinations, Allergy/Immunology: Negative for hives, rash, and allergies, Endocrine: Negative for neck swelling, polydipsia, polyuria, polyphagia, and marked weight changes, Hematologic/Lymphatic: Negative for swollen nodes, abnormal bleeding, and unusual bruising, 15:03 All other systems are negative, Exam: 15:04 Constitutional: This is a well developed, well nourished patient who is awake, alert, sp3 and in no acute distress. Head/Face: Normocephalic, atraumatic. Eyes: Pupils equal round and reactive to light, extra-ocular motions intact. Lids and lashes normal. Conjunctiva and sclera are non-icteric and not injected. Cornea within normal limits. Periorbital areas with no swelling, redness, or edema. Chest/axilla: Normal chest wall appearance and motion. Nontender with no deformity. No lesions are appreciated. Cardiovascular: Regular rate and rhythm with a normal S1 and S2. No gallops, murmurs, or rubs. Normal PMI, no JVD. No pulse deficits. Respiratory: Lungs have equal breath sounds bilaterally, clear to auscultation and percussion. No rales, rhonchi or wheezes noted. No increased work of breathing, no retractions or nasal flaring. Abdomen/GI: Soft, non-tender, with normal bowel sounds. No distension or tympany. No guarding or rebound. No evidence of tenderness throughout. Back: No spinal tenderness. No costovertebral tenderness. Full range of motion. Skin: Warm, dry with normal turgor. Normal color with no rashes, no lesions, and no evidence of cellulitis. Neuro: Awake and alert, GCS 15, oriented to person, place, time, and situation. Cranial nerves II-XII grossly intact. Motor strength 5/5 in all extremities. Sensory grossly intact. Cerebellar exam normal. Normal gait. Psych: Awake, alert, with orientation to person, place and time. Behavior, mood, and affect are within normal limits. 15:04 Musculoskeletal/extremity: Mild midline neck tenderness noted. Also mild clavicular and right shoulder tenderness. Lateral right hip tenderness however patient is ambulatory. Vital signs are normal.. Vital Signs: 14:32 BP 141 / 76; Pulse 80; Resp 18; Temp 98.7; Pulse Ox 96% ; Weight 78.93 kg; Height 5 ft. ap3 7 in. ; Pain 7/10; 16:13 BP 128 / 85; Pulse 81; Resp 16; Pulse Ox 95% on R/A; dd2 14:32 Body Mass Index 27.25 (78.93 kg, 170.18 cm) ap3 14:32 Pain Scale: Adult ap3 Agency Coma Score: 14:36 Eye Response: spontaneous(4). Motor Response: obeys commands(6). Verbal Response: ap3 oriented(5). Total: 15. Trauma Score (Adult): 14:36 Eye Response: spontaneous(1); Verbal Response: oriented(1); Motor Response: obeys ap3 commands(2); Systolic BP: > 89 mm Hg(4); Respiratory Rate: 10 to 29 per min(4); Clau Score: 15; Trauma Score: 12 MDM: 14:37 Medical Screening Exam initiated sp3 15:04 Data reviewed: vital signs, nurses notes, radiologic studies. ED course: Mechanical sp3 fall with injury to the neck, right shoulder and right hip pain potentially head. Workup will include CT scan of the head and C-spine with x-rays of the right shoulder and right hip. [place] for pain control. Discharge home if workup negative.. 16:02 ED course: Full workup negative. Will safely discharge patient home at this time.. sp3 06/29 14:46 Order name: Shoulder Right (2 View) XRAY; Complete Time: 15:53 sp3 06/29 14:46 Order name: Hip Right 2 View XRAY; Complete Time: 15:53 sp3 06/29 14:46 Order name: CT Head C Spine; Complete Time: 15:53 sp3 06/29 14:47 Order name: NPO; Complete Time: 14:48 sp3 Administered Medications: 15:44 Drug: HYDROcodone-acetaminophen PO 5 mg-325 mg 2 tabs PO once Route: PO; dd2 16:14 Follow up: Response: No adverse reaction dd2 Disposition Summary: 06/29/25 16:03 Discharge Ordered Notes: Location: Home sp3 Condition: Stable sp3 Diagnosis - Mechanical fall, closed head injury, neck strain, right shoulder strain, right hip sp3 contusion Followup: sp3 - With: Ezekiel Alcala MD - When: Upon discharge from the Emergency Department - Reason: Continuance of care Discharge Instructions: - Discharge Summary Sheet sp3 - Fall Prevention in the Home, Adult sp3 Forms: - Medication Reconciliation Form sp3 - Antibiotic Education sp3 - Prescription Opioid Use sp3 - Patient Portal Instructions sp3 - Leadership Thank You Letter sp3 Prescriptions: - Tramadol 50 mg Oral Tablet - take 1 tablet ORAL route every 8 hours as needed; 12 tablet; Refills: 0, sp3 Product Selection Permitted Signatures: Dispatcher [employer] Miryam Solis RN RN ap3 Brandi Bobby MD MD sp3 GEORGIE MALIK RN RN dd2
[2025-06-29 23:13] VITALS: TEMP 98.7
[2025-06-29 23:15] VITALS: BP 128/85; O2SAT 95
== END 2025-06-29 16:29 | disposition home or self-care (01) ==
LOC: ER 14:25
DX: S16.1XXA Strain of muscle, fascia and tendon at neck level, initial encounter (principal); S46.911A Strain of unspecified muscle, fascia and tendon at shoulder and upper arm level, right arm, initial encounter; S70.01XA Contusion of right hip, initial encounter; S09.90XA Unspecified injury of head, initial encounter; W18.30XA Fall on same level, unspecified, initial encounter; F17.210 Nicotine dependence, cigarettes, uncomplicated
CPT/HCPCS: 70450; 72125; 99283